=== PATIENT | male | born 1975 | race African-American/Black ===

== ENCOUNTER 2019-04-11 12:47 | Inpatient (IN) | payer MEDICARE ==
[~2019-04-11] VITALS: Ht 175.3 cm; Wt 43.7 kg
[2019-04-11] VITALS (13 sets, daily range): BP systolic 84–116; BP diastolic 62–84
[2019-04-11 14:15] LABS: BASOPHILS % 0.1 % (0.0-1.0); EOSINOPHILS # (AUTO) 0.1 (0.0-0.4); EOSINOPHILS % 0.5 % (0.0-6.0); HEMOGLOBIN 7.2 g/dL (14.0-18.0); LYMPHOCYTES # (AUTO) 1.1 (1.0-3.2); LYMPHOCYTES % 5.3 % (18.0-39.1); MEAN CORPUSCULAR HEMOGLOBIN 28.6 pg (28-32); MEAN CORPUSCULAR VOLUME 95.2 fL (81-99); MONOCYTES # (AUTO) 1.8 (0.2-0.8); MONOCYTES % 8.9 % (4.4-11.3); NEUTROPHILS # (AUTO) 17.1 (2.1-6.9); NEUTROPHILS % 84.3 % (38.7-80.0); PLATELET COUNT 423 x10e3/uL (140-360); RED BLOOD COUNT 2.52 x10e6/uL (4.3-5.7); RED CELL DISTRIBUTION WIDTH 14.1 % (11.7-14.4)
--- NOTE | 2019-04-11 14:24 | Consultation ---
DATE OF CONSULTATION: 04/11/2019 Pulmonary Consult[address] Patient of Dr. Joshua Narayan. HISTORY OF PRESENT ILLNESS: Unfortunate 43-year-old gentleman, transferred from [facility] because of leak around his endotracheal tube, somewhat tachypneic and tachycardic, rate in the 40s, heart rate 120s, apparent cuff leak. Cuff manometer was not available, but cuff pressure seems somewhat high to palpation. PHYSICAL EXAMINATION: GENERAL: Somewhat cachectic, wasted white male. According to record, has a history of cerebellar ataxia, although he is ventilator dependent. Old records currently unavailable. VITAL SIGNS: Temperature 98.8, pulse 118, respirations 40, blood pressure 123/81. Tracheostomy in place. PEG tube. LUNGS: Diminished breath sounds. HEART: Regular rhythm. ABDOMEN: Scaphoid. EXTREMITIES: Wasted. IMPRESSION: Neuromuscular disease with ventilator dependence, leak around the patient's inflated tracheostomy, suspect overinflation. A #6 Shiley XLT with distal cuff was placed. The patient seemed to ventilate better, respiratory rate reduced, blood pressure improved. PLAN: Plan is to admit the patient, observe him, obtain chest x-ray, lab and cultures. Review old records when available. Thank you for this kind referral. Cxr revealed rml pneumonia will culture and begin iv antibiotics Rocco Adams MD DS/MODL /[id number] MTDD
[2019-04-11 14:25] LABS: INR 1.11; PROTHROMBIN TIME 14.8 seconds (11.9-14.5)
[2019-04-11 14:26] LABS: PARTIAL THROMBOPLASTIN TIME 50.4 seconds (23.8-35.5)
[2019-04-11] MEDS ORDERED: SODIUM CHLORIDE 0.9% 250ML 250 ML IV ONE (14:30)
[2019-04-11] MEDS ORDERED: FUROSEMIDE INJ 10 MG/ML 2 ML VIAL IV PRN (14:30)
[2019-04-11 14:32] LABS: ALANINE AMINOTRANSFERASE 18 IU/L (0-55); ALBUMIN 2.4 g/dL (3.5-5.0); ALBUMIN/GLOBULIN RATIO 0.4 (0.8-2.0); ALKALINE PHOSPHATASE 93 IU/L (40-150); ANION GAP 15.7 mmol/L (8-16); BLOOD UREA NITROGEN 13 mg/dL (7-26); BUN/CREATININE RATIO 25 (6-25); CALCIUM 10.2 mg/dL (8.4-10.2); CARBON DIOXIDE 34 mmol/L (22-29); CHLORIDE 97 mmol/L (98-107); CREATINE KINASE 25 IU/L (30-200); CREATININE, SERUM 0.53 mg/dL (0.72-1.25); EST GLOMERULAR FILTRATION RATE > 60 ML/MIN (60-); GLUCOSE 87 mg/dL (74-118); POTASSIUM 4.7 mmol/L (3.5-5.1); SODIUM 142 mmol/L (136-145)
--- NOTE | 2019-04-11 14:52 | Diagnostic Imaging Report ---
EXAMINATION: CHEST SINGLE (PORTABLE) INDICATION: ^TRACHEOSTOMY W/ CUFF LEAK ^[id number] ^[id number] COMPARISON: None FINDINGS: AP view TUBES and LINES: Tracheostomy tube in place with tip approximately 6.5 cm above missy. LUNGS: Lungs are well inflated. Right mid to lower lung opacification. Left lung is clear. PLEURA: No visible pneumothorax. HEART AND MEDIASTINUM: The cardiomediastinal silhouette is unremarkable. BONES AND SOFT TISSUES: No acute osseous lesion. Soft tissues are unremarkable. UPPER ABDOMEN: No free air under the diaphragm. IMPRESSION: Right mid to lower lung field hazy opacification, representing pneumonia/aspiration. Less likely to represent layering effusion. Signed by: Dr. Talha Garcia MD on 04/11/2019 2:49 PM
[2019-04-11] MEDS: CEFEPIME 2 GM/NS 0.9% 100 ML 100 ML IV SCH (14:57)
[2019-04-11] MEDS ORDERED: ALBUTEROL SULF 0.083% NEB SOLN 3 ML NEB NEB SCH (15:00)
[2019-04-11] MEDS ORDERED: SODIUM CHLORIDE 0.9% 1000ML 1,000 ML IV ONE (15:00)
--- OUTSIDE RECORDS SUMMARY | 2019-04-11 15:10 | XMS REPORT ---
Author Author [facility] Organization [facility] Address Unknown Phone Unavailable Care Team Providers Care Granite Cutter Name Role Phone Essence LIANG Unavailable Unavailable Payers Payer Name Policy Type Policy Number Effective Date Expiration Date Problems This patient has no known problems. Allergies, Adverse Reactions, Alerts Allergy Name Allergy Type Status Severity Reaction(s) Onset Date Inactive Date Treating Clinician Comments No Known Allergies DA Active U 2018-09-19 00:00:00 Medications This patient has no known medications. Results Test Description Test Time Test Comments Text Results Atomic Results Result Comments CHEST SINGLE (PORTABLE) 2019-04-11 14:47:00 [facility] [address] [place], [place] [address] Patient Name: NICHOLAS VARGAS III MR #: [id number] : 1975 Age/Sex: 43/M Req #: [id number] Adm Physician: Ordered by: BERHANE LIANG MD Report #: [id number] Location: ER Room/Bed: Procedure: [id number] DX/CHEST SINGLE (PORTABLE) Exam Date: 04/11/19 Exam Time: 1405 REPORT STATUS: Signed EXAMINATION: CHEST SINGLE (PORTABLE) INDICAT ION: TRACHEOSTOMY W/ CUFF LEAK [id number] COMPARISON: None FINDINGS: AP view TUBES and LINES: Tracheostomy tube in place with tip approximately 6.5 cm above missy. LUNGS: Lungs are well inflated. Right mid to lower lung opacification. Left lung is clear. PLEURA: No visible pneumothorax. HEART AND MEDIASTINUM: The cardiomediastinal silhouette is unremarkable. BONES AND SOFT TISSUES: No acute osseous lesion. Soft tissues are unremarkable. UPPER ABDOMEN: No free air under the diaphragm. IMPRESSION: Right mid to lower lung field hazy opacification, representing pneumonia/aspiration. Less likely to represent layering effusion. Signed by: Dr. Mesha Garcia MD on 04/11/2019 2:49 PM Dictated By: MESHA GARCIA MD 1449 Transcribed By: CLAUDIA on 04/11/19 1449 COPY TO: BERHANE LIANG MD - XR ABDOMEN 1V (KU) 2018-12-03 09:32:00 FAX: Ap Velez [phone] [place]: St: [facility] FAX: Franko Nieto MD [phone] FAX: Omega Pradhan MD [phone] Name: ALICIANICHOLASKali ORELLANA [facility] : 1975 Age/S: 43/M [address] [place] [address] Unit #: [id number] Loc: G.M328 [place] [address] Phys: Omega Moya MD Acct: [id number] Dis Date: Status: ADM IN PHONE #: [phone] Exam Date: 12/03/2018 09 FAX #: [phone] Reason: nausea, vomiting, possible impaction? EXAMS: CPT CODE: [id number] XR ABDOMEN 1V (KUB) [id number] ABDOMEN SINGLE VIEW HISTORY: Nausea and vomiting. COMPARISON: 11/29/18 FINDINGS: There is diffuse gaseous distention of small bowel loops and colon. Gastrostomy tube noted. No rectal fecal impaction.. There is no gross free intraperitoneal air. No abnormal calcifications identified. The lung bases are clear. IMPRESSION: 1. Diffuse gaseous distention of bowel with air suggesting ileus. 2. No colonic fecal impaction given history. 3. Gastrostomy tube noted. SL:01 at 0932 Reported and signed by: Lucien Diamond M.D. CC: Ap Allison MD; Franko Guido MD; Omega Moya MD Technologist: RT Victorino(Jonathan) Trnscrd Date/Time/By: 12/03/2018 (0932) : By: Ryland Orig Print D/T: S: 12/03/2018 (3341) PAGE 1 Signed Report PROCALCITONIN (PCT) 2018-12-03 09:18:00 PROCALCITONIN (PCT) (test code=PROCAL) 0.05 ng/mL 0.00-0.05 PROCALCITONIN (PCT) NORMAL RANGE (ADULT): <0.05 NG/ML. * a concentration <0.5 ng/mL represents a low risk of severe sepsis and/or septic shock.* a concentration >2 ng/mL represents a high risk of severe sepsis and/or septic shock.Nevertheless, concentrations <0.5 ng/mL do not exclude aninfection, on account of localized infections (withoutsystemic signs) which can be associated with such lowconcentrations, or a systemic infection in its initialstages (< 6 hours). Furthermore, increased procalcitonincan occur without infection. PCT concentrations between 0.5and 2.0 ng/mL should be interpreted taking into account thepatient's history. It is recommended to retest PCT within6-24 hours if any concentrations <2 ng/mL are obtained. BASIC METABOLIC [id number] 06:40:00* Test Item Value Reference Range Comments SODIUM (test code=NA) 140 mEq/L 134-147 POTASSIUM (test code=K) 3.7 mEq/L 3.4-5.0 CHLORIDE (test code=CL) 109 mEq/L 100-108 CARBON DIOXIDE (test code=CO2) 25 mEq/L 21-33 ANION GAP (test code=GAP) 10 0-20 GLUCOSE (test code=GLU) 95 mg/dL 70-110 BLOOD UREA NITROGEN (test code=BUN) 9 mg/dL 7-18 GLOMERULAR FILTRATION RATE (test code=GFR) 629.3 95-105 Units of measure=ml/min/1.73 m2 CREATININE (test code=CREAT) 0.2 mg/dL 0.6-1.3 CALCIUM (test code=CA) 8.2 mg/dL 8.0-10.5 COMMENTS: Daily while in [id number] 06:40:00* Test Item Value Reference Range Comments PHOSPHOROUS (test code=PHOS) 2.2 mg/dL 2.5-4.9 COMMENTS: Daily while in [id number] 06:40:00* Test Item Value Reference Range Comments MAGNESIUM (test code=MAG) 2.30 mg/dL 1.8-2.4 COMMENTS: Daily while in ICUCBC W/AUTO [id number] 06:28:00* Test Item Value Reference Range Comments WHITE BLOOD CELL (test code=WBC) 22.52 x10 3/uL 4.5-11.0 RED BLOOD CELL (test code=RBC) 2.87 x10 6/uL 4.00-5.60 HEMOGLOBIN (test code=HGB) 8.6 g/dL 12.5-16.9 HEMATOCRIT (test code=HCT) 27.8 % 37.5-50.7 MEAN CELL VOLUME (test code=MCV) 96.9 fL 81.0-99.0 MEAN CELL HGB (test code=MCH) 30.0 pg 27.0-33.0 MEAN CELL HGB CONCETRATION (test code=MCHC) 30.9 g/dL 33.0-37.0 RED CELL DISTRIBUTION WIDTH CV (test code=RDW) 15.1 % 11.5-14.5 RED CELL DISTRIBUTION WIDTH SD (test code=RDW-SD) 52.1 fL 37.0-54.0 PLATELET COUNT (test code=PLT) 307 x10 3/uL 150-400 MEAN PLATELET VOLUME (test code=MPV) 9.1 fL 7.0-9.0 NEUTROPHIL % (test code=NT%) 85.2 % 56.0-77.0 IMMATURE GRANULOCYTE % (test code=IG%) 0.8 % 0.0-2.0 LYMPHOCYTE % (test code=LY%) 8.4 % 14.0-32.0 MONOCYTE % (test code=MO%) 5.4 % 4.8-9.0 EOSINOPHIL % (test code=EO%) 0.1 % 0.3-3.7 BASOPHIL % (test code=BA%) 0.1 % 0.0-2.0 NUCLEATED RBC % (test code=NRBC%) 0.0 % 0-0 NEUTROPHIL # (test code=NT#) 19.17 x10 3/uL 2.0-7.6 IMMATURE GRANULOCYTE # (test code=IG#) 0.18 x10 3/uL 0.00-0.03 LYMPHOCYTE # (test code=LY#) 1.90 x10 3/uL 1.0-3.8 MONOCYTE # (test code=MO#) 1.22 x10 3/uL 0.1-0.8 EOSINOPHIL # (test code=EO#) 0.03 x10 3/uL 0.0-0.2 BASOPHIL # (test code=BA#) 0.02 x10 3/uL 0.0-0.2 NUCLEATED RBC # (test code=NRBC#) 0.00 x10 3/uL 0.0-0.1 MANUAL DIFF REQUIRED (test code=MDIFF) NO COMMENTS: Daily while in ICUARTERIAL BLOOD [id number] 04:42:00* Test Item Value Reference Range Comments ARTERIAL BLOOD GAS PH (test code=PHA) 7.461 7.35-7.45 ARTERIAL BLOOD GAS PCO2 (test code=PCO2A) 32.2 mmHg 35-45 ARTERIAL BLOOD GAS PO2 (test code=PO2A) 141 mmHg 80-100 BICARBONATE TOTAL HCO3 (test code=HCO3) 23.0 mmol/L 22.0-26.0 BASE EXCESS (test code=REYNA) -1.0 mmol/L -4-4 ABG O2 SATURATION (test code=SATA) 99 % 90-100 FIO2 (test code=FIO2A) 30 % ABG DELIVERY (test code=MAGNOLIA) Vent ABG VENT MODE (test code=MODEA) AC v con ABG VENT RESP RATE (test code=RRA) 14 /MIN ABG TIDAL VOLUME (test code=TVA) 450 ml ABG PEEP (test code=PEEPA) 5 cmH2O Performed by certified marshmallow machine operator at [facility] ABG TEMPERATURE (test code=TEMPA) 98.0 F ABG SITE (test code=SITEA) R Rad PREDICTED AA GRADIENT (test code=AP) 45 PREDICTED PO2 (test code=OP) 130 a/A RATIO (test code=RATIO) 0.80 TCO2 ARTERIAL (test code=TCO2A) 24 A-A GRADIENT (test code=AAGRADE) 34 PROCALCITONIN (PCT)2018-12-02 17:17:00* Test Item Value Reference Range Comments PROCALCITONIN (PCT) (test code=PROCAL) < 0.05 ng/mL 0.00-0.05 PROCALCITONIN (PCT) NORMAL RANGE (ADULT): <0.05 NG/ML. * a concentration <0.5 ng/mL represents a low risk of severe sepsis and/or septic shock.* a concentration >2 ng/mL represents a high risk of severe sepsis and/or septic shock.Nevertheless, concentrations <0.5 ng/mL do not exclude aninfection, on account of localized infections (withoutsystemic signs) which can be associated with such lowconcentrations, or a systemic infection in its initialstages (< 6 hours). Furthermore, increased procalcitonincan occur without infection. PCT concentrations between 0.5and 2.0 ng/mL should be interpreted taking into account thepatient's history. It is recommended to retest PCT within6-24 hours if any concentrations <2 ng/mL are obtained. LACTIC [id number] 15:12:00* Test Item Value Reference Range Comments LACTIC ACID (test code=LACT) 0.9 mmol/L 0.4-1.9 UA CULT [id number] 15:00:00* Test Item Value Reference Range Comments UA WBC (test code=WBCU) 0-3 WBC/HPF 0-3 UA SQUAMOUS CELLS (test code=SQU) NONE SEEN /HPF NONE SEEN UA CULTURE NEEDED? (test code=UACULT) NO, WBC<10 Criteria Culture Chk Criteria not met, Urine Culture cancelled. BASIC METABOLIC [id number] 06:38:00* Test Item Value Reference Range Comments SODIUM (test code=NA) 139 mEq/L 134-147 POTASSIUM (test code=K) 3.8 mEq/L 3.4-5.0 CHLORIDE (test code=CL) 112 mEq/L 100-108 CARBON DIOXIDE (test code=CO2) 22 mEq/L 21-33 ANION GAP (test code=GAP) 9 0-20 GLUCOSE (test code=GLU) 119 mg/dL 70-110 BLOOD UREA NITROGEN (test code=BUN) 8 mg/dL 7-18 GLOMERULAR FILTRATION RATE (test code=GFR) 629.3 95-105 Units of measure=ml/min/1.73 m2 CREATININE (test code=CREAT) 0.2 mg/dL 0.6-1.3 CALCIUM (test code=CA) 7.6 mg/dL 8.0-10.5 COMMENTS: Daily while in [id number] 06:38:00* Test Item Value Reference Range Comments PHOSPHOROUS (test code=PHOS) 1.5 mg/dL 2.5-4.9 COMMENTS: Daily while in [id number] 06:38:00* Test Item Value Reference Range Comments MAGNESIUM (test code=MAG) 2.40 mg/dL 1.8-2.4 COMMENTS: Daily while in ICUCBC W/AUTO [id number] 06:30:00* Test Item Value Reference Range Comments WHITE BLOOD CELL (test code=WBC) 21.56 x10 3/uL 4.5-11.0 RED BLOOD CELL (test code=RBC) 2.72 x10 6/uL 4.00-5.60 HEMOGLOBIN (test code=HGB) 8.2 g/dL 12.5-16.9 HEMATOCRIT (test code=HCT) 26.9 % 37.5-50.7 MEAN CELL VOLUME (test code=MCV) 98.9 fL 81.0-99.0 MEAN CELL HGB (test code=MCH) 30.1 pg 27.0-33.0 MEAN CELL HGB CONCETRATION (test code=MCHC) 30.5 g/dL 33.0-37.0 RED CELL DISTRIBUTION WIDTH CV (test code=RDW) 15.0 % 11.5-14.5 RED CELL DISTRIBUTION WIDTH SD (test code=RDW-SD) 53.9 fL 37.0-54.0 PLATELET COUNT (test code=PLT) 293 x10 3/uL 150-400 MEAN PLATELET VOLUME (test code=MPV) 9.0 fL 7.0-9.0 NEUTROPHIL % (test code=NT%) 85.1 % 56.0-77.0 IMMATURE GRANULOCYTE % (test code=IG%) 1.6 % 0.0-2.0 LYMPHOCYTE % (test code=LY%) 8.2 % 14.0-32.0 MONOCYTE % (test code=MO%) 4.9 % 4.8-9.0 EOSINOPHIL % (test code=EO%) 0.1 % 0.3-3.7 BASOPHIL % (test code=BA%) 0.1 % 0.0-2.0 NUCLEATED RBC % (test code=NRBC%) 0.0 % 0-0 NEUTROPHIL # (test code=NT#) 18.34 x10 3/uL 2.0-7.6 IMMATURE GRANULOCYTE # (test code=IG#) 0.35 x10 3/uL 0.00-0.03 LYMPHOCYTE # (test code=LY#) 1.77 x10 3/uL 1.0-3.8 MONOCYTE # (test code=MO#) 1.06 x10 3/uL 0.1-0.8 EOSINOPHIL # (test code=EO#) 0.02 x10 3/uL 0.0-0.2 BASOPHIL # (test code=BA#) 0.02 x10 3/uL 0.0-0.2 NUCLEATED RBC # (test code=NRBC#) 0.00 x10 3/uL 0.0-0.1 MANUAL DIFF REQUIRED (test code=MDIFF) NO COMMENTS: Daily while in ICUARTERIAL BLOOD [id number] 06:20:00* Test Item Value Reference Range Comments ARTERIAL BLOOD GAS PH (test code=PHA) 7.418 7.35-7.45 ARTERIAL BLOOD GAS PCO2 (test code=PCO2A) 28.8 mmHg 35-45 ARTERIAL BLOOD GAS PO2 (test code=PO2A) 137 mmHg 80-100 BICARBONATE TOTAL HCO3 (test code=HCO3) 18.6 mmol/L 22.0-26.0 BASE EXCESS (test code=REYNA) -6.0 mmol/L -4-4 ABG O2 SATURATION (test code=SATA) 99 % 90-100 FIO2 (test code=FIO2A) 30 % ABG DELIVERY (test code=MAGNOLIA) Vent ABG VENT MODE (test code=MODEA) AC v con ABG VENT RESP RATE (test code=RRA) 14 /MIN ABG TIDAL VOLUME (test code=TVA) 450 ml ABG PEEP (test code=PEEPA) 5 cmH2O Performed by certified marshmallow machine operator at [facility] ABG TEMPERATURE (test code=TEMPA) 97.9 F ABG SITE (test code=SITEA) R Rad PREDICTED AA GRADIENT (test code=AP) 46 PREDICTED PO2 (test code=OP) 133 a/A RATIO (test code=RATIO) 0.76 TCO2 ARTERIAL (test code=TCO2A) 20 A-A GRADIENT (test code=AAGRADE) 42 [id number] 18:20:00* Test Item Value Reference Range Comments POTASSIUM (test code=K) 3.2 mEq/L 3.4-5.0 PROCALCITONIN (PCT)2018-12-01 10:42:00* Test Item Value Reference Range Comments PROCALCITONIN (PCT) (test code=PROCAL) 0.05 ng/mL 0.00-0.05 PROCALCITONIN (PCT) NORMAL RANGE (ADULT): <0.05 NG/ML. * a concentration <0.5 ng/mL represents a low risk of severe sepsis and/or septic shock.* a concentration >2 ng/mL represents a high risk of severe sepsis and/or septic shock.Nevertheless, concentrations <0.5 ng/mL do not exclude aninfection, on account of localized infections (withoutsystemic signs) which can be associated with such lowconcentrations, or a systemic infection in its initialstages (< 6 hours). Furthermore, increased procalcitonincan occur without infection. PCT concentrations between 0.5and 2.0 ng/mL should be interpreted taking into account thepatient's history. It is recommended to retest PCT within6-24 hours if any concentrations <2 ng/mL are obtained. BASIC METABOLIC [id number] 07:52:00* Test Item Value Reference Range Comments SODIUM (test code=NA) 144 mEq/L 134-147 POTASSIUM (test code=K) 2.9 mEq/L 3.4-5.0 CHLORIDE (test code=CL) 120 mEq/L 100-108 CARBON DIOXIDE (test code=CO2) 21 mEq/L 21-33 ANION GAP (test code=GAP) 6 0-20 GLUCOSE (test code=GLU) 205 mg/dL 70-110 BLOOD UREA NITROGEN (test code=BUN) 6 mg/dL 7-18 GLOMERULAR FILTRATION RATE (test code=GFR) 394.1 95-105 Units of measure=ml/min/1.73 m2 CREATININE (test code=CREAT) 0.3 mg/dL 0.6-1.3 CALCIUM (test code=CA) 7.0 mg/dL 8.0-10.5 COMMENTS: Daily while in [id number] 07:52:00* Test Item Value Reference Range Comments PHOSPHOROUS (test code=PHOS) 1.2 mg/dL 2.5-4.9 COMMENTS: Daily while in [id number] 07:52:00* Test Item Value Reference Range Comments MAGNESIUM (test code=MAG) 1.60 mg/dL 1.8-2.4 COMMENTS: Daily while in ICUCBC W/AUTO [id number] 07:37:00* Test Item Value Reference Range Comments WHITE BLOOD CELL (test code=WBC) 17.00 x10 3/uL 4.5-11.0 RED BLOOD CELL (test code=RBC) 2.37 x10 6/uL 4.00-5.60 HEMOGLOBIN (test code=HGB) 7.0 g/dL 12.5-16.9 HEMATOCRIT (test code=HCT) 24.0 % 37.5-50.7 MEAN CELL VOLUME (test code=MCV) 101.3 fL 81.0-99.0 MEAN CELL HGB (test code=MCH) 29.5 pg 27.0-33.0 MEAN CELL HGB CONCETRATION (test code=MCHC) 29.2 g/dL 33.0-37.0 RED CELL DISTRIBUTION WIDTH CV (test code=RDW) 15.4 % 11.5-14.5 RED CELL DISTRIBUTION WIDTH SD (test code=RDW-SD) 55.7 fL 37.0-54.0 PLATELET COUNT (test code=PLT) 248 x10 3/uL 150-400 MEAN PLATELET VOLUME (test code=MPV) 9.3 fL 7.0-9.0 NEUTROPHIL % (test code=NT%) 78.0 % 56.0-77.0 IMMATURE GRANULOCYTE % (test code=IG%) 3.0 % 0.0-2.0 LYMPHOCYTE % (test code=LY%) 13.3 % 14.0-32.0 MONOCYTE % (test code=MO%) 5.4 % 4.8-9.0 EOSINOPHIL % (test code=EO%) 0.2 % 0.3-3.7 BASOPHIL % (test code=BA%) 0.1 % 0.0-2.0 NUCLEATED RBC % (test code=NRBC%) 0.0 % 0-0 NEUTROPHIL # (test code=NT#) 13.27 x10 3/uL 2.0-7.6 IMMATURE GRANULOCYTE # (test code=IG#) 0.51 x10 3/uL 0.00-0.03 LYMPHOCYTE # (test code=LY#) 2.26 x10 3/uL 1.0-3.8 MONOCYTE # (test code=MO#) 0.91 x10 3/uL 0.1-0.8 EOSINOPHIL # (test code=EO#) 0.03 x10 3/uL 0.0-0.2 BASOPHIL # (test code=BA#) 0.02 x10 3/uL 0.0-0.2 NUCLEATED RBC # (test code=NRBC#) 0.00 x10 3/uL 0.0-0.1 MANUAL DIFF REQUIRED (test code=MDIFF) NO COMMENTS: Daily while in ICUARTERIAL BLOOD [id number] 04:39:00* Test Item Value Reference Range Comments ARTERIAL BLOOD GAS PH (test code=PHA) 7.469 7.35-7.45 ARTERIAL BLOOD GAS PCO2 (test code=PCO2A) 27.1 mmHg 35-45 ARTERIAL BLOOD GAS PO2 (test code=PO2A) 177 mmHg 80-100 BICARBONATE TOTAL HCO3 (test code=HCO3) 19.7 mmol/L 22.0-26.0 BASE EXCESS (test code=REYNA) -4.0 mmol/L -4-4 ABG O2 SATURATION (test code=SATA) 100 % 90-100 FIO2 (test code=FIO2A) 30 % ABG DELIVERY (test code=MAGNOLIA) Vent ABG VENT MODE (test code=MODEA) AC v con ABG VENT RESP RATE (test code=RRA) 14 /MIN ABG TIDAL VOLUME (test code=TVA) 450 ml ABG PEEP (test code=PEEPA) 5 cmH2O Performed by certified marshmallow machine operator at [facility] ABG TEMPERATURE (test code=TEMPA) 98.6 F ABG SITE (test code=SITEA) R Rad PREDICTED AA GRADIENT (test code=AP) 47 PREDICTED PO2 (test code=OP) 134 a/A RATIO (test code=RATIO) 0.98 TCO2 ARTERIAL (test code=TCO2A) 21 A-A GRADIENT (test code=AAGRADE) 4 CBC W/AUTO [id number] 11:42:00* Test Item Value Reference Range Comments WHITE BLOOD CELL (test code=WBC) 22.54 x10 3/uL 4.5-11.0 RED BLOOD CELL (test code=RBC) 2.96 x10 6/uL 4.00-5.60 HEMOGLOBIN (test code=HGB) 8.9 g/dL 12.5-16.9 HEMATOCRIT (test code=HCT) 28.1 % 37.5-50.7 MEAN CELL VOLUME (test code=MCV) 94.9 fL 81.0-99.0 MEAN CELL HGB (test code=MCH) 30.1 pg 27.0-33.0 MEAN CELL HGB CONCETRATION (test code=MCHC) 31.7 g/dL 33.0-37.0 RED CELL DISTRIBUTION WIDTH CV (test code=RDW) 15.1 % 11.5-14.5 RED CELL DISTRIBUTION WIDTH SD (test code=RDW-SD) 51.5 fL 37.0-54.0 PLATELET COUNT (test code=PLT) 273 x10 3/uL 150-400 MEAN PLATELET VOLUME (test code=MPV) 9.1 fL 7.0-9.0 NEUTROPHIL % (test code=NT%) 82.6 % 56.0-77.0 IMMATURE GRANULOCYTE % (test code=IG%) 4.4 % 0.0-2.0 LYMPHOCYTE % (test code=LY%) 8.3 % 14.0-32.0 MONOCYTE % (test code=MO%) 4.5 % 4.8-9.0 EOSINOPHIL % (test code=EO%) 0.0 % 0.3-3.7 BASOPHIL % (test code=BA%) 0.2 % 0.0-2.0 NUCLEATED RBC % (test code=NRBC%) 0.0 % 0-0 NEUTROPHIL # (test code=NT#) 18.62 x10 3/uL 2.0-7.6 IMMATURE GRANULOCYTE # (test code=IG#) 1.00 x10 3/uL 0.00-0.03 LYMPHOCYTE # (test code=LY#) 1.86 x10 3/uL 1.0-3.8 MONOCYTE # (test code=MO#) 1.01 x10 3/uL 0.1-0.8 EOSINOPHIL # (test code=EO#) 0.01 x10 3/uL 0.0-0.2 BASOPHIL # (test code=BA#) 0.04 x10 3/uL 0.0-0.2 NUCLEATED RBC # (test code=NRBC#) 0.00 x10 3/uL 0.0-0.1 MANUAL DIFF REQUIRED (test code=MDIFF) NO SLIDE REVIEWED, CONSISTENT WITH AUTO DIFF. PROCALCITONIN (PCT)2018-11-30 09:22:00* Test Item Value Reference Range Comments PROCALCITONIN (PCT) (test code=PROCAL) 0.13 ng/mL 0.00-0.05 PROCALCITONIN (PCT) NORMAL RANGE (ADULT): <0.05 NG/ML. * a concentration <0.5 ng/mL represents a low risk of severe sepsis and/or septic shock.* a concentration >2 ng/mL represents a high risk of severe sepsis and/or septic shock.Nevertheless, concentrations <0.5 ng/mL do not exclude aninfection, on account of localized infections (withoutsystemic signs) which can be associated with such lowconcentrations, or a systemic infection in its initialstages (< 6 hours). Furthermore, increased procalcitonincan occur without infection. PCT concentrations between 0.5and 2.0 ng/mL should be interpreted taking into account thepatient's history. It is recommended to retest PCT within6-24 hours if any concentrations <2 ng/mL are obtained. - XR CHEST 1 [id number] 08:13:00 FAX: Ap Velez [phone] [place]: St: ADM FAX: Franko Nieto MD [phone] FAX: Iwona Fox MD Name: NICHOLAS VARGAS III [facility] : 1975 Age/S: 43/M [address] [place] [address] Unit #: [id number] Loc: G.M328 [place] [address] Phys: Iwona Fox MD Acct: [id number] Dis Date: Status: ADM IN ONE #: [phone] Exam Date: 11/30/2018 0536 FAX #: [phone] Reason: trach to vent EXAMS: CPT CODE: [id number] XR CHEST 1 V [id number] EXAM: CHEST SI NGLE VIEW HISTORY: 43-year-old male with tracheostomy COMPARISON: Chest radiograph 11/29/2018 FINDINGS: Stable pleural- based mass in the left mid hemithorax. Stable medial right lower lung [place]. Stable trace residual left apical pneumothorax. The cardiomediasti nal silhouette is stable. Osseous structures are unchanged. Stable posit ion of tracheostomy tube, right upper extremity PICC, and left-sided chest tube. IMPRESSION: 1. Grossly stable chest. SL: [id number] at 0813 Reported and sign ed by: Mario Lopez M.D. CC: Ap Allison MD; Franko Guido MD; Iwona Fox MD Technologist: Brittney Clark, RT(R); Cyrus Mack RT(R) [facility] Date/Time/By: 11/30/2018 (0813) : By: [email or web address] Orig Print D/T: S: 11/30/2018 (0824) PAGE 1 Signed Report BASIC METABOLIC [id number] 05:55:00* Test Item Value Reference Range Comments SODIUM (test code=NA) 141 mEq/L 134-147 POTASSIUM (test code=K) 3.1 mEq/L 3.4-5.0 CHLORIDE (test code=CL) 110 mEq/L 100-108 CARBON DIOXIDE (test code=CO2) 25 mEq/L 21-33 ANION GAP (test code=GAP) 9 0-20 GLUCOSE (test code=GLU) 104 mg/dL 70-110 BLOOD UREA NITROGEN (test code=BUN) 12 mg/dL 7-18 GLOMERULAR FILTRATION RATE (test code=GFR) 629.3 95-105 Units of measure=ml/min/1.73 m2 CREATININE (test code=CREAT) 0.2 mg/dL 0.6-1.3 CALCIUM (test code=CA) 8.2 mg/dL 8.0-10.5 [id number] 05:55:00* Test Item Value Reference Range Comments PHOSPHOROUS (test code=PHOS) 2.5 mg/dL 2.5-4.9 [id number] 05:55:00* Test Item Value Reference Range Comments MAGNESIUM (test code=MAG) 1.90 mg/dL 1.8-2.4 ARTERIAL BLOOD [id number] 05:22:00* Test Item Value Reference Range Comments ARTERIAL BLOOD GAS PH (test code=PHA) 7.485 7.35-7.45 ARTERIAL BLOOD GAS PCO2 (test code=PCO2A) 29.6 mmHg 35-45 ARTERIAL BLOOD GAS PO2 (test code=PO2A) 136 mmHg 80-100 BICARBONATE TOTAL HCO3 (test code=HCO3) 22.4 mmol/L 22.0-26.0 BASE EXCESS (test code=REYNA) -1.0 mmol/L -4-4 ABG O2 SATURATION (test code=SATA) 99 % 90-100 FIO2 (test code=FIO2A) 30 % ABG DELIVERY (test code=MAGNOLIA) Vent ABG VENT MODE (test code=MODEA) AC v con ABG VENT RESP RATE (test code=RRA) 14 /MIN ABG TIDAL VOLUME (test code=TVA) 450 ml ABG PEEP (test code=PEEPA) 5 cmH2O Performed by certified marshmallow machine operator at [facility] ABG TEMPERATURE (test code=TEMPA) 98.0 F ABG SITE (test code=SITEA) R Rad PREDICTED AA GRADIENT (test code=AP) 46 PREDICTED PO2 (test code=OP) 132 a/A RATIO (test code=RATIO) 0.76 TCO2 ARTERIAL (test code=TCO2A) 23 A-A GRADIENT (test code=AAGRADE) 42 CBC W/AUTO [id number] 05:15:00* Test Item Value Reference Range Comments WHITE BLOOD CELL (test code=WBC) 22.54 x10 3/uL 4.5-11.0 RED BLOOD CELL (test code=RBC) 2.96 x10 6/uL 4.00-5.60 HEMOGLOBIN (test code=HGB) 8.9 g/dL 12.5-16.9 HEMATOCRIT (test code=HCT) 28.1 % 37.5-50.7 MEAN CELL VOLUME (test code=MCV) 94.9 fL 81.0-99.0 MEAN CELL HGB (test code=MCH) 30.1 pg 27.0-33.0 MEAN CELL HGB CONCETRATION (test code=MCHC) 31.7 g/dL 33.0-37.0 RED CELL DISTRIBUTION WIDTH CV (test code=RDW) 15.1 % 11.5-14.5 RED CELL DISTRIBUTION WIDTH SD (test code=RDW-SD) 51.5 fL 37.0-54.0 PLATELET COUNT (test code=PLT) 273 x10 3/uL 150-400 MEAN PLATELET VOLUME (test code=MPV) 9.1 fL 7.0-9.0 LYMPHOCYTE % (test code=LY%) % 14.0-32.0 MANUAL DIFF REQUIRED (test code=MDIFF) PROCALCITONIN (PCT)2018-11-29 20:58:00* Test Item Value Reference Range Comments PROCALCITONIN (PCT) (test code=PROCAL) 0.19 ng/mL 0.00-0.05 PROCALCITONIN (PCT) NORMAL RANGE (ADULT): <0.05 NG/ML. * a concentration <0.5 ng/mL represents a low risk of severe sepsis and/or septic shock.* a concentration >2 ng/mL represents a high risk of severe sepsis and/or septic shock.Nevertheless, concentrations <0.5 ng/mL do not exclude aninfection, on account of localized infections (withoutsystemic signs) which can be associated with such lowconcentrations, or a systemic infection in its initialstages (< 6 hours). Furthermore, increased procalcitonincan occur without infection. PCT concentrations between 0.5and 2.0 ng/mL should be interpreted taking into account thepatient's history. It is recommended to retest PCT within6-24 hours if any concentrations <2 ng/mL are obtained. URINALYSIS [id number] 17:56:00* Test Item Value Reference Range Comments UA COLOR (test code=COLU) YELLOW YEL/STRAW UA APPEARANCE (test code=APPU) CLOUDY CLEAR UA GLUCOSE DIPSTICK (test code=DGLUU) NEGATIVE NEGATIVE UA BILIRUBIN DIPSTICK (test code=BILU) NEGATIVE NEGATIVE UA KETONE DIPSTICK (test code=KETU) NEGATIVE NEGATIVE UA SPECIFIC GRAVITY (test code=SGU) 1.024 1.005-1.030 UA BLOOD DIPSTICK (test code=ALEX) 3+ NEGATIVE UA PH DIPSTICK (test code=JORJE) 7.0 5.0-7.0 UA PROTEIN DIPSTICK (test code=PROU) NEGATIVE NEGATIVE UA UROBILINIOGEN DIPSTICK (test code=URO) 2.0 mg/dL 0.2-1.0 UA NITRITE DIPSTICK (test code=MALINI) NEGATIVE NEGATIVE UA LEUKOCYTE ESTERASE DIPSTICK (test code=LEUU) NEGATIVE NEGATIVE UA WBC (test code=WBCU) 21-50 WBC/HPF 0-3 UA RBC (test code=RBCU) >50 RBC/HPF 0-3 UA BACTERIA (test code=BACU) TRACE /HPF NONE SEEN UA SQUAMOUS CELLS (test code=SQU) NONE SEEN /HPF NONE SEEN UA CALCIUM OXALATE CRYSTALS (test code=CAOXU) 1+ /HPF NONE SEEN UA CULT [id number] 17:56:00* Test Item Value Reference Range Comments UA CULTURE NEEDED? (test code=UACULT) YES,WBC>10 & EPI<=25 Criteria Culture Chk Criteria met, Urine Culture in-process. - XR ABDOMEN 1V ([facility])2018-11-29 16:23:00 FAX: Ap Velez [phone] [place]: St: ADM FAX: Franko Nieto MD [phone] FAX: Iwona Fox MD Name: NICHOLAS VARGAS III [facility] : 1975 Age/S: 43/M [address] [place] [address] Unit #: [id number] Loc: G.M328 [place] [address] Phys: Iwona Fox MD Acct: [id number] Dis Date: Status: ADM IN ONE #: [phone] Exam Date: 11/29/2018 1611 FAX #: [phone] Reason: persistent vomiting, s/p PEG x 1 day EXAMS: CPT CODE: [id number] XR ABDOMEN 1V ([facility]) [id number] Clinical Indic ation: persistent vomiting, s/p PEG x 1 day; Comparison: October 04, 2018 FINDINGS: The AP supine view of the abdome n shows a non-obstructive bowel gas pattern. There is no abnormal dilatati on of bowel loops. There is no pneumatosis or mass effect. The stomach is mildly dilated and filled with gas. A PEG tube projects over the stomach with the tip likely terminating in the body the stomach. There are no cl inically significant osseous abnormalities noted. IMPRESS ION: Unremarkable 1 view abdomen. SL: [id number] at 1 413 Reported and signed by: Arnold Houser M.D. CC: Ap Allison MD; Franko Guido MD; Iwona Fox MD Technologist: Yasmine Avendano RT(R) Trnscrd Date/Time/By: 11/29/2018 (0967) : By: [email or web address] Orig Print D/T: S: 11/29/2018 (6463) PAGE 1 Signed Report [id number] 15:37:00* Test Item Value Reference Range Comments MAGNESIUM (test code=MAG) 2.10 mg/dL 1.8-2.4 PROCALCITONIN (PCT)2018-11-29 15:19:00* Test Item Value Reference Range Comments PROCALCITONIN (PCT) (test code=PROCAL) 0.21 ng/mL 0.00-0.05 PROCALCITONIN (PCT) NORMAL RANGE (ADULT): <0.05 NG/ML. * a concentration <0.5 ng/mL represents a low risk of severe sepsis and/or septic shock.* a concentration >2 ng/mL represents a high risk of severe sepsis and/or septic shock.Nevertheless, concentrations <0.5 ng/mL do not exclude aninfection, on account of localized infections (withoutsystemic signs) which can be associated with such lowconcentrations, or a systemic infection in its initialstages (< 6 hours). Furthermore, increased procalcitonincan occur without infection. PCT concentrations between 0.5and 2.0 ng/mL should be interpreted taking into account thepatient's history. It is recommended to retest PCT within6-24 hours if any concentrations <2 ng/mL are obtained. CBC W/AUTO [id number] 09:56:00* Test Item Value Reference Range Comments WHITE BLOOD CELL (test code=WBC) 26.16 x10 3/uL 4.5-11.0 RED BLOOD CELL (test code=RBC) 3.20 x10 6/uL 4.00-5.60 HEMOGLOBIN (test code=HGB) 9.7 g/dL 12.5-16.9 HEMATOCRIT (test code=HCT) 30.4 % 37.5-50.7 MEAN CELL VOLUME (test code=MCV) 93.0 fL 81.0-99.0 MEAN CELL HGB (test code=MCH) 29.7 pg 27.0-33.0 MEAN CELL HGB CONCETRATION (test code=MCHC) 31.9 g/dL 33.0-37.0 RED CELL DISTRIBUTION WIDTH CV (test code=RDW) 15.3 % 11.5-14.5 RED CELL DISTRIBUTION WIDTH SD (test code=RDW-SD) 51.3 fL 37.0-54.0 PLATELET COUNT (test code=PLT) 309 x10 3/uL 150-400 MEAN PLATELET VOLUME (test code=MPV) 9.5 fL 7.0-9.0 NEUTROPHIL % (test code=NT%) 81.8 % 56.0-77.0 IMMATURE GRANULOCYTE % (test code=IG%) 5.4 % 0.0-2.0 LYMPHOCYTE % (test code=LY%) 9.1 % 14.0-32.0 MONOCYTE % (test code=MO%) 3.4 % 4.8-9.0 EOSINOPHIL % (test code=EO%) 0.0 % 0.3-3.7 BASOPHIL % (test code=BA%) 0.3 % 0.0-2.0 NUCLEATED RBC % (test code=NRBC%) 0.0 % 0-0 NEUTROPHIL # (test code=NT#) 21.42 x10 3/uL 2.0-7.6 IMMATURE GRANULOCYTE # (test code=IG#) 1.40 x10 3/uL 0.00-0.03 LYMPHOCYTE # (test code=LY#) 2.37 x10 3/uL 1.0-3.8 MONOCYTE # (test code=MO#) 0.90 x10 3/uL 0.1-0.8 EOSINOPHIL # (test code=EO#) 0.00 x10 3/uL 0.0-0.2 BASOPHIL # (test code=BA#) 0.07 x10 3/uL 0.0-0.2 NUCLEATED RBC # (test code=NRBC#) 0.00 x10 3/uL 0.0-0.1 MANUAL DIFF REQUIRED (test code=MDIFF) NO SLIDE REVIEWED, CONSISTENT WITH AUTO DIFF. COMMENTS: Daily while in ICU- XR CHEST 1 [id number] 09:33:00 FAX: Ap Vleez [phone] [place]: St: ADM FAX: Franko Nieto MD [phone] FAX: Iwona Fox MD --------- Name: NICHOLAS VARGAS III [facility] [place] : 1975 Age/S: 43/M [address] [place] [address] Un it #: [id number] Loc: AshaM328 [place] [address] Phys: Iwona Fox MD Acct: [id number] Dis Date: Status: ADM IN PH ONE #: [phone] Exam Date: 11/29/2018 0552 FAX #: [phone] Reason: intubated/vented EXAMS: CPT CODE: [id number] XR CHEST 1 V [id number] EXAM: CHEST SI NGLE VIEW HISTORY: 43-year-old male, intubated. COMP ARISON: Chest radiograph 11/28/2018 FINDINGS: Mild infiltrate in th e medial right lung base, slightly improved. Stable pleural-based mass in the left mid hemithorax. Trace residual left pneumothorax. The cardiome diastinal silhouette is stable. Osseous structures are unchanged. Stable position of tracheostomy tube, right upper extremity PICC, and left-sided chest tube. Interval removal of nasogastric tube. IMPRESSION: 1. Trace residual left pneumothorax. 2. Slight improvement in medial right basilar infiltrate. 3. Interval removal of nasogastric tube. Otherwise stable position of lines and tubes. SL: [id number] at 0933 Reported and signed by: Mario Lopez M.D. CC: Ap Allison MD; Franko Guido MD; Iwona Fox MD Technologist: Brittney Clark, RT(R); Cyrus Mack RT(R) Trnscrd Date/Time/By: 11/29/2018 (33) : By: [email or web address] Orig Print D/T: S: 11/29/2018 (7380) PAGE 1 Signed Report ARTERIAL BLOOD [id number] 09:07:00* Test Item Value Reference Range Comments ARTERIAL BLOOD GAS PH (test code=PHA) 7.501 7.35-7.45 ARTERIAL BLOOD GAS PCO2 (test code=PCO2A) 32.3 mmHg 35-45 ARTERIAL BLOOD GAS PO2 (test code=PO2A) 50 mmHg 80-100 BICARBONATE TOTAL HCO3 (test code=HCO3) 25.4 mmol/L 22.0-26.0 BASE EXCESS (test code=REYNA) 2.0 mmol/L -4-4 ABG O2 SATURATION (test code=SATA) 89 % 90-100 FIO2 (test code=FIO2A) 35 % ABG DELIVERY (test code=MAGNOLIA) Vent ABG VENT MODE (test code=MODEA) AC v con ABG VENT RESP RATE (test code=RRA) 14 /MIN ABG TIDAL VOLUME (test code=TVA) 450 ml ABG PEEP (test code=PEEPA) 5 cmH2O Performed by certified marshmallow machine operator at [facility] ABG TEMPERATURE (test code=TEMPA) 98.0 F ABG SITE (test code=SITEA) R Rad PREDICTED AA GRADIENT (test code=AP) 54 PREDICTED PO2 (test code=OP) 156 a/A RATIO (test code=RATIO) 0.24 TCO2 ARTERIAL (test code=TCO2A) 26 A-A GRADIENT (test code=AAGRADE) 161 BASIC METABOLIC [id number] 06:58:00* Test Item Value Reference Range Comments SODIUM (test code=NA) 142 mEq/L 134-147 POTASSIUM (test code=K) 2.9 mEq/L 3.4-5.0 CHLORIDE (test code=CL) 107 mEq/L 100-108 CARBON DIOXIDE (test code=CO2) 28 mEq/L 21-33 ANION GAP (test code=GAP) 10 0-20 GLUCOSE (test code=GLU) 93 mg/dL 70-110 BLOOD UREA NITROGEN (test code=BUN) 13 mg/dL 7-18 GLOMERULAR FILTRATION RATE (test code=GFR) 394.1 95-105 Units of measure=ml/min/1.73 m2 CREATININE (test code=CREAT) 0.3 mg/dL 0.6-1.3 CALCIUM (test code=CA) 9.6 mg/dL 8.0-10.5 COMMENTS: Daily while in ICUHEPATIC FUNCTION [id number] 06:58:00* Test Item Value Reference Range Comments TOTAL PROTEIN (test code=PROT) 7.2 g/dL 6.4-8.2 ALBUMIN (test code=ALB) 4.00 g/dL 3.4-5.0 BILIRUBIN TOTAL (test code=BILT) 1.00 mg/dL 0.0-1.0 BILIRUBIN DIRECT (test code=BILD) 0.30 MG/DL 0.0-0.30 BILIRUBIN INDIRECT (test code=BILIND) 0.70 MG/DL SGOT/AST (test code=AST) 12 IUnit/L 15-37 SGPT/ALT (test code=ALT) 34 IUnit/L 15-65 ALKALINE PHOSPHATASE TOTAL (test code=ALKP) 43 IUnit/L 20-125 COMMENTS: Daily while in [id number] 06:58:00* Test Item Value Reference Range Comments PREALBUMIN (test code=PREALB) 30.2 mg/dL 16.0-40.0 COMMENTS: Daily while in ICUVITAMIN D [id number] 06:58:00* Test Item Value Reference Range Comments VITAMIN D 25-HYDROXY (test code=VITD25) 15.4 ng/mL 30-100 COMMENTS: Daily while in ICUBASIC METABOLIC [id number] 06:37:00* Test Item Value Reference Range Comments SODIUM (test code=NA) mEq/L 134-147 POTASSIUM (test code=K) mEq/L 3.4-5.0 CHLORIDE (test code=CL) mEq/L 100-108 CARBON DIOXIDE (test code=CO2) mEq/L 21-33 ANION GAP (test code=GAP) 0-20 GLUCOSE (test code=GLU) mg/dL 70-110 BLOOD UREA NITROGEN (test code=BUN) mg/dL 7-18 GLOMERULAR FILTRATION RATE (test code=GFR) 95-105 CREATININE (test code=CREAT) mg/dL 0.6-1.3 CALCIUM (test code=CA) mg/dL 8.0-10.5 COMMENTS: Daily while in ICUHEPATIC FUNCTION [id number] 06:37:00* Test Item Value Reference Range Comments TOTAL PROTEIN (test code=PROT) g/dL 6.4-8.2 ALBUMIN (test code=ALB) g/dL 3.4-5.0 BILIRUBIN TOTAL (test code=BILT) mg/dL 0.0-1.0 BILIRUBIN DIRECT (test code=BILD) MG/DL 0.0-0.30 SGOT/AST (test code=AST) IUnit/L 15-37 SGPT/ALT (test code=ALT) IUnit/L 15-65 ALKALINE PHOSPHATASE TOTAL (test code=ALKP) IUnit/L 20-125 COMMENTS: Daily while in [id number] 06:37:00* Test Item Value Reference Range Comments PREALBUMIN (test code=PREALB) mg/dL 16.0-40.0 COMMENTS: Daily while in ICUVITAMIN D [id number] 06:37:00* Test Item Value Reference Range Comments VITAMIN D 25-HYDROXY (test code=VITD25) 15.4 ng/mL 30-100 COMMENTS: Daily while in ICUCBC W/AUTO [id number] 06:13:00* Test Item Value Reference Range Comments WHITE BLOOD CELL (test code=WBC) 26.16 x10 3/uL 4.5-11.0 RED BLOOD CELL (test code=RBC) 3.20 x10 6/uL 4.00-5.60 HEMOGLOBIN (test code=HGB) 9.7 g/dL 12.5-16.9 HEMATOCRIT (test code=HCT) 30.4 % 37.5-50.7 MEAN CELL VOLUME (test code=MCV) 93.0 fL 81.0-99.0 MEAN CELL HGB (test code=MCH) 29.7 pg 27.0-33.0 MEAN CELL HGB CONCETRATION (test code=MCHC) 31.9 g/dL 33.0-37.0 RED CELL DISTRIBUTION WIDTH CV (test code=RDW) 15.3 % 11.5-14.5 RED CELL DISTRIBUTION WIDTH SD (test code=RDW-SD) 51.3 fL 37.0-54.0 PLATELET COUNT (test code=PLT) 309 x10 3/uL 150-400 MEAN PLATELET VOLUME (test code=MPV) 9.5 fL 7.0-9.0 LYMPHOCYTE % (test code=LY%) % 14.0-32.0 MANUAL DIFF REQUIRED (test code=MDIFF) COMMENTS: Daily while in ICUARTERIAL BLOOD [id number] 13:40:00* Test Item Value Reference Range Comments ARTERIAL BLOOD GAS PH (test code=PHA) 7.405 7.35-7.45 ARTERIAL BLOOD GAS PCO2 (test code=PCO2A) 45.2 mmHg 35-45 ARTERIAL BLOOD GAS PO2 (test code=PO2A) 184 mmHg 80-100 BICARBONATE TOTAL HCO3 (test code=HCO3) 28.3 mmol/L 22.0-26.0 BASE EXCESS (test code=REYNA) 4.0 mmol/L -4-4 ABG O2 SATURATION (test code=SATA) 100 % 90-100 FIO2 (test code=FIO2A) 40 % ABG DELIVERY (test code=MAGNOLIA) Vent ABG VENT MODE (test code=MODEA) Other ABG PEEP (test code=PEEPA) 5 cmH2O ABG PRESSURE SUPPORT (test code=PSABG) 10 cmH2O Performed by certified marshmallow machine operator at [facility] ABG TEMPERATURE (test code=TEMPA) 99.0 F ABG SITE (test code=SITEA) R Rad PREDICTED AA GRADIENT (test code=AP) 60 PREDICTED PO2 (test code=OP) 171 a/A RATIO (test code=RATIO) 0.80 TCO2 ARTERIAL (test code=TCO2A) 30 A-A GRADIENT (test code=AAGRADE) 47 CBC W/AUTO [id number] 11:02:00* Test Item Value Reference Range Comments WHITE BLOOD CELL (test code=WBC) 15.99 x10 3/uL 4.5-11.0 RED BLOOD CELL (test code=RBC) 2.94 x10 6/uL 4.00-5.60 HEMOGLOBIN (test code=HGB) 8.7 g/dL 12.5-16.9 HEMATOCRIT (test code=HCT) 27.7 % 37.5-50.7 MEAN CELL VOLUME (test code=MCV) 94.2 fL 81.0-99.0 MEAN CELL HGB (test code=MCH) 29.6 pg 27.0-33.0 MEAN CELL HGB CONCETRATION (test code=MCHC) 31.4 g/dL 33.0-37.0 RED CELL DISTRIBUTION WIDTH CV (test code=RDW) 15.6 % 11.5-14.5 RED CELL DISTRIBUTION WIDTH SD (test code=RDW-SD) 53.9 fL 37.0-54.0 PLATELET COUNT (test code=PLT) 286 x10 3/uL 150-400 MEAN PLATELET VOLUME (test code=MPV) 9.4 fL 7.0-9.0 NEUTROPHIL % (test code=NT%) 75.6 % 56.0-77.0 IMMATURE GRANULOCYTE % (test code=IG%) 6.0 % 0.0-2.0 LYMPHOCYTE % (test code=LY%) 11.6 % 14.0-32.0 MONOCYTE % (test code=MO%) 6.5 % 4.8-9.0 EOSINOPHIL % (test code=EO%) 0.0 % 0.3-3.7 BASOPHIL % (test code=BA%) 0.3 % 0.0-2.0 NUCLEATED RBC % (test code=NRBC%) 0.1 % 0-0 NEUTROPHIL # (test code=NT#) 12.09 x10 3/uL 2.0-7.6 IMMATURE GRANULOCYTE # (test code=IG#) 0.96 x10 3/uL 0.00-0.03 LYMPHOCYTE # (test code=LY#) 1.86 x10 3/uL 1.0-3.8 MONOCYTE # (test code=MO#) 1.04 x10 3/uL 0.1-0.8 EOSINOPHIL # (test code=EO#) 0.00 x10 3/uL 0.0-0.2 BASOPHIL # (test code=BA#) 0.04 x10 3/uL 0.0-0.2 NUCLEATED RBC # (test code=NRBC#) 0.02 x10 3/uL 0.0-0.1 MANUAL DIFF REQUIRED (test code=MDIFF) NO SLIDE REVIEWED, CONSISTENT WITH AUTO DIFF. COMMENTS: Daily while in ICUBASIC METABOLIC [id number] 07:25:00* Test Item Value Reference Range Comments SODIUM (test code=NA) 140 mEq/L 134-147 POTASSIUM (test code=K) 3.4 mEq/L 3.4-5.0 CHLORIDE (test code=CL) 105 mEq/L 100-108 CARBON DIOXIDE (test code=CO2) 30 mEq/L 21-33 ANION GAP (test code=GAP) 8 0-20 GLUCOSE (test code=GLU) 107 mg/dL 70-110 BLOOD UREA NITROGEN (test code=BUN) 12 mg/dL 7-18 GLOMERULAR FILTRATION RATE (test code=GFR) 394.1 95-105 Units of measure=ml/min/1.73 m2 CREATININE (test code=CREAT) 0.3 mg/dL 0.6-1.3 CALCIUM (test code=CA) 8.7 mg/dL 8.0-10.5 COMMENTS: Daily while in ICUHEPATIC FUNCTION [id number] 07:25:00* Test Item Value Reference Range Comments TOTAL PROTEIN (test code=PROT) 6.4 g/dL 6.4-8.2 ALBUMIN (test code=ALB) 3.90 g/dL 3.4-5.0 BILIRUBIN TOTAL (test code=BILT) 0.80 mg/dL 0.0-1.0 BILIRUBIN DIRECT (test code=BILD) 0.30 MG/DL 0.0-0.30 BILIRUBIN INDIRECT (test code=BILIND) 0.50 MG/DL SGOT/AST (test code=AST) 10 IUnit/L 15-37 SGPT/ALT (test code=ALT) 29 IUnit/L 15-65 ALKALINE PHOSPHATASE TOTAL (test code=ALKP) 33 IUnit/L 20-125 COMMENTS: Daily while in [id number] 07:25:00* Test Item Value Reference Range Comments PHOSPHOROUS (test code=PHOS) 2.4 mg/dL 2.5-4.9 COMMENTS: Daily while in [id number] 07:25:00* Test Item Value Reference Range Comments MAGNESIUM (test code=MAG) 2.10 mg/dL 1.8-2.4 COMMENTS: Daily while in ICUCALCIUM [id number] 07:25:00* Test Item Value Reference Range Comments CALCIUM IONIZED (test code=LATONYA) 1.27 MMOL/L 1.12-1.32 COMMENTS: Daily while in ICUBASIC METABOLIC [id number] 07:23:00* Test Item Value Reference Range Comments SODIUM (test code=NA) 140 mEq/L 134-147 POTASSIUM (test code=K) 3.4 mEq/L 3.4-5.0 CHLORIDE (test code=CL) 105 mEq/L 100-108 CARBON DIOXIDE (test code=CO2) 30 mEq/L 21-33 ANION GAP (test code=GAP) 8 0-20 GLUCOSE (test code=GLU) 107 mg/dL 70-110 BLOOD UREA NITROGEN (test code=BUN) 12 mg/dL 7-18 GLOMERULAR FILTRATION RATE (test code=GFR) 394.1 95-105 Units of measure=ml/min/1.73 m2 CREATININE (test code=CREAT) 0.3 mg/dL 0.6-1.3 CALCIUM (test code=CA) 8.7 mg/dL 8.0-10.5 COMMENTS: Daily while in ICUHEPATIC FUNCTION [id number] 07:23:00* Test Item Value Reference Range Comments TOTAL PROTEIN (test code=PROT) 6.4 g/dL 6.4-8.2 ALBUMIN (test code=ALB) 3.90 g/dL 3.4-5.0 BILIRUBIN TOTAL (test code=BILT) 0.80 mg/dL 0.0-1.0 BILIRUBIN DIRECT (test code=BILD) 0.30 MG/DL 0.0-0.30 BILIRUBIN INDIRECT (test code=BILIND) 0.50 MG/DL SGOT/AST (test code=AST) 10 IUnit/L 15-37 SGPT/ALT (test code=ALT) 29 IUnit/L 15-65 ALKALINE PHOSPHATASE TOTAL (test code=ALKP) 33 IUnit/L 20-125 COMMENTS: Daily while in [id number] 07:23:00* Test Item Value Reference Range Comments PHOSPHOROUS (test code=PHOS) 2.4 mg/dL 2.5-4.9 COMMENTS: Daily while in [id number] 07:23:00* Test Item Value Reference Range Comments MAGNESIUM (test code=MAG) 2.10 mg/dL 1.8-2.4 COMMENTS: Daily while in ICUCALCIUM [id number] 07:23:00* Test Item Value Reference Range Comments CALCIUM IONIZED (test code=LATONYA) MMOL/L 1.12-1.32 COMMENTS: Daily while in ICUPROTHROMBIN [id number] 06:52:00* Test Item Value Reference Range Comments PROTHROMBIN TIME PATIENT (test code=PTP) 13.8 SECONDS 9.3-12.9 INTERNATIONAL NORMAL RATIO (test code=INR) 1.2 0.8-1.2 TARGET INR BY INDICATION Indication INR1. Prophylaxis of venous thrombosis 2.0 - 3.0 (orthopedic surgery), Prophylaxis of venous thrombosis (other than high-risk surgery), Treatment of Deep Vein Thrombosis/Pulmonary Embolism, Prevention of systemic embolism - Tissue heart valves, Acute Myocardial Infarction (to prevent systemic embolism), Valvular heart disease, Atrial Fibrillation, Bileaflet mechanical valve in aortic position.2. Mechanical prosthetic valves (high risk), 2.5 - 3.5 Presence of Lupus Anticoagulant or Antiphospholipid Antibodies, Prevention of systemic embolism - Acute Myocardial Infarction (to prevent recurrent infarct). CBC W/AUTO [id number] 06:36:00* Test Item Value Reference Range Comments WHITE BLOOD CELL (test code=WBC) 15.99 x10 3/uL 4.5-11.0 RED BLOOD CELL (test code=RBC) 2.94 x10 6/uL 4.00-5.60 HEMOGLOBIN (test code=HGB) 8.7 g/dL 12.5-16.9 HEMATOCRIT (test code=HCT) 27.7 % 37.5-50.7 MEAN CELL VOLUME (test code=MCV) 94.2 fL 81.0-99.0 MEAN CELL HGB (test code=MCH) 29.6 pg 27.0-33.0 MEAN CELL HGB CONCETRATION (test code=MCHC) 31.4 g/dL 33.0-37.0 RED CELL DISTRIBUTION WIDTH CV (test code=RDW) 15.6 % 11.5-14.5 RED CELL DISTRIBUTION WIDTH SD (test code=RDW-SD) 53.9 fL 37.0-54.0 PLATELET COUNT (test code=PLT) 286 x10 3/uL 150-400 MEAN PLATELET VOLUME (test code=MPV) 9.4 fL 7.0-9.0 LYMPHOCYTE % (test code=LY%) % 14.0-32.0 MANUAL DIFF REQUIRED (test code=MDIFF) COMMENTS: Daily while in ICU- XR CHEST 1 [id number] 06:24:00 FAX: Ap Velez [phone] [place]: St: ADM FAX: Franko Nieto MD [phone] FAX: Torres Phelps MD [phone] --------- Name: NICHOLAS VARGAS III [facility] [place] : 1975 Age/S: 43/M [address] [place] [address] Un it #: [id number] Loc: AshaM328 [place] [address] Phys: Torres Rubio MD Acct: [id number] Dis Date: Status: ADM IN ONE #: [phone] Exam Date: 11/28/2018 0535 FAX #: [phone] Reason: Left pneumothorax EXAMS: CPT CODE: [id number] XR CHEST 1 V 45888 Chest, single view dated 11/28/2018. HISTORY: Left pneumothorax. Co mparison is made to a prior study dated 11/27/2018. The positioning of the tracheostomy tube, right upper extremity PICC line, left-sided diana st tube and nasogastric tube has not significantly changed in the interim. A small left apical pneumothorax persists however has decreased in size when compared to the preceding exam. The cardiomediastinal shadow is stab le. The consolidation in the medial right lung base is unchanged. The pl eural-based mass in the left mid hemithorax is stable. The pulmonary vasc ulature is normal in caliber. No pleural fluid collections are noted. IMPRESSION: 1. Stable positioning of the life-support appa ratus. 2. A small left apical pneumothorax persists however has decreas ed in size since 11/27/2018. 3. Stable consolidation in the medi al right lung base. SL: 131 Electronically S igned by Thalia Bernardo on 11/28/2018 at 0624 Reported and signed by: Cyril Bernardo M.D. CC: Ap Allison MD; Franko Guido MD; Sckali Rubio MD Technologist: Brittney Clark, RT(R); Cyrus Mack RT(R) Trnscrd Date/Time/By: 11/28/2018 (0624) : By: Foster Orig Print D/T : S: 11/28/2018 (3916) PAGE 1 Sig dinah Report ARTERIAL BLOOD [id number] 05:55:00* Test Item Value Reference Range Comments ARTERIAL BLOOD GAS PH (test code=PHA) 7.502 7.35-7.45 ARTERIAL BLOOD GAS PCO2 (test code=PCO2A) 33.7 mmHg 35-45 ARTERIAL BLOOD GAS PO2 (test code=PO2A) 143 mmHg 80-100 BICARBONATE TOTAL HCO3 (test code=HCO3) 26.5 mmol/L 22.0-26.0 BASE EXCESS (test code=REYNA) 3.0 mmol/L -4-4 ABG O2 SATURATION (test code=SATA) 99 % 90-100 FIO2 (test code=FIO2A) 40 % ABG DELIVERY (test code=MAGNOLIA) Vent ABG VENT MODE (test code=MODEA) AC v con ABG VENT RESP RATE (test code=RRA) 14 /MIN ABG TIDAL VOLUME (test code=TVA) 450 ml ABG PEEP (test code=PEEPA) 5 cmH2O Performed by certified marshmallow machine operator [facility] ABG TEMPERATURE (test code=TEMPA) 97.6 F ABG SITE (test code=SITEA) L Rad PREDICTED AA GRADIENT (test code=AP) 63 PREDICTED PO2 (test code=OP) 181 a/A RATIO (test code=RATIO) 0.58 TCO2 ARTERIAL (test code=TCO2A) 28 A-A GRADIENT (test code=AAGRADE) 102 HGB [id number] 20:59:00* Test Item Value Reference Range Comments HEMOGLOBIN (test code=HGB) 8.7 g/dL 12.5-16.9 HEMATOCRIT (test code=HCT) 28.2 % 37.5-50.7 [id number] 20:46:00* Test Item Value Reference Range Comments GLUBED (test code=GLUBED) 122 MG/DL 70-110 Performed by certified marshmallow machine operator at [facility] - [facility]ST 1 [id number] 13:50:00 FAX: Ap Velez [phone] [place]: St: ADM FAX: Franko Nieto MD [phone] FAX: Iwona Fox MD Name: NICHOLAS VARGAS III [facility] [place] : 1975 Age/S: 43/M [address] [place] [address] Unit #: [id number] Loc: GM328 [place] [address] Phys: Iwona Fox MD Acct: [id number] Dis Date: Status: ADM IN ONE #: [phone] Exam Date: 11/27/2018 1334 FAX #: [phone] Reason: right apical pneumothorax, now with tracheostom EXAMS: CPT CODE: [id number] XR CHEST 1 V [id number] CLINICAL HISTO RY: Right apical pneumothorax. Now with tracheostomy. Portable fi lm of the chest performed at 1319 on November 27, 2018. Portable f ilm of the chest performed at 1319 on November 27, 2018 demonstrates a tra cheostomy tube with its tip 6.2 cm above the level of missy. Chest tube is present in left hemithorax. Right subclavian catheter tip is in superi or vena cava. An enteric tube is noted. Heart size is leticia l. Pulmonary opacity at the right lung base is unchanged since previous e xamination. Pleural-based density in the left lateral hemithorax is also unchanged. Previously noted left apical pneumothorax is not well seen on current examination partly due to technique. There is no significant inte rval increase in the size of pneumothorax. IMPRESSION: 1. Tracheostomy tube in place. 2. Remainder of the lines and tubes are stable. 3. Stable right basilar pulmonary opacity as well as pleu ral-based opacity in the left midlung field. 4. Pneumothorax on the left not well appreciated on current examination. Elect ronically Signed by Thalia Huntley on 11/27/2018 at 1350 Reported and signed by: Alexandro Huntley M.D. CC: Ap rizo MD; Franko Guido MD; Iwona Fox MD Technologist: Michelle Morales RT(R)(Autumn) Trnscrd Date/Time/By: 11/27/2018 (6127) : By: Dean Orig Print D/T: S: 11/27/2018 (1624) PAGE 1 Signed Report CBC W/AUTO DIFF 2018-11-27 11:09:00* Test Item Value Reference Range Comments WHITE BLOOD CELL (test code=WBC) 12.87 x10 3/uL 4.5-11.0 RED BLOOD CELL (test code=RBC) 2.25 x10 6/uL 4.00-5.60 HEMOGLOBIN (test code=HGB) 6.8 g/dL 12.5-16.9 HEMATOCRIT (test code=HCT) 22.3 % 37.5-50.7 MEAN CELL VOLUME (test code=MCV) 99.1 fL 81.0-99.0 MEAN CELL HGB (test code=MCH) 30.2 pg 27.0-33.0 MEAN CELL HGB CONCETRATION (test code=MCHC) 30.5 g/dL 33.0-37.0 RED CELL DISTRIBUTION WIDTH CV (test code=RDW) 13.9 % 11.5-14.5 RED CELL DISTRIBUTION WIDTH SD (test code=RDW-SD) 50.1 fL 37.0-54.0 PLATELET COUNT (test code=PLT) 305 x10 3/uL 150-400 MEAN PLATELET VOLUME (test code=MPV) 9.7 fL 7.0-9.0 NEUTROPHIL % (test code=NT%) 77.1 % 56.0-77.0 IMMATURE GRANULOCYTE % (test code=IG%) 5.4 % 0.0-2.0 LYMPHOCYTE % (test code=LY%) 9.1 % 14.0-32.0 MONOCYTE % (test code=MO%) 8.3 % 4.8-9.0 EOSINOPHIL % (test code=EO%) 0.0 % 0.3-3.7 BASOPHIL % (test code=BA%) 0.1 % 0.0-2.0 NUCLEATED RBC % (test code=NRBC%) 0.0 % 0-0 NEUTROPHIL # (test code=NT#) 9.93 x10 3/uL 2.0-7.6 IMMATURE GRANULOCYTE # (test code=IG#) 0.69 x10 3/uL 0.00-0.03 LYMPHOCYTE # (test code=LY#) 1.17 x10 3/uL 1.0-3.8 MONOCYTE # (test code=MO#) 1.07 x10 3/uL 0.1-0.8 EOSINOPHIL # (test code=EO#) 0.00 x10 3/uL 0.0-0.2 BASOPHIL # (test code=BA#) 0.01 x10 3/uL 0.0-0.2 NUCLEATED RBC # (test code=NRBC#) 0.00 x10 3/uL 0.0-0.1 MANUAL DIFF REQUIRED (test code=MDIFF) NO SLIDE REVIEWED, CONSISTENT WITH AUTO DIFF. COMMENTS: Daily while in ICUPROCALCITONIN (PCT)2018-11-27 10:02:00* Test Item Value Reference Range Comments PROCALCITONIN (PCT) (test code=PROCAL) 0.58 ng/mL 0.00-0.05 PROCALCITONIN (PCT) NORMAL RANGE (ADULT): <0.05 NG/ML. * a concentration <0.5 ng/mL represents a low risk of severe sepsis and/or septic shock.* a concentration >2 ng/mL represents a high risk of severe sepsis and/or septic shock.Nevertheless, concentrations <0.5 ng/mL do not exclude aninfection, on account of localized infections (withoutsystemic signs) which can be associated with such lowconcentrations, or a systemic infection in its initialstages (< 6 hours). Furthermore, increased procalcitonincan occur without infection. PCT concentrations between 0.5and 2.0 ng/mL should be interpreted taking into account thepatient's history. It is recommended to retest PCT within6-24 hours if any concentrations <2 ng/mL are obtained. - XR CHEST 1 [id number] 06:41:00 FAX: Ap Velez [phone] [place]: St: [facility] FAX: Franko Nieto MD [phone] FAX: Iwona Fox MD Name: NICHOLAS VARGAS III [facility] [place] : 1975 Age/S: 43/M [address] [place] [address] Unit #: [id number] Loc: [address] [place] [address] Phys: Iwona Fox MD Acct: [id number] Dis Date: Status: ADM IN ONE #: [phone] Exam Date: 11/27/2018524 FAX #: [phone] Reason: intubated/vented EXAMS: CPT CODE: [id number] XR CHEST 1 V 48553 Chest, single view dated 11/27/2018. HISTORY: Pneumothorax. Compari son is made to a prior study dated 11/26/2018. The positioning of t he endotracheal tube, right upper extremity PICC line and left-sided chest tube has not significantly changed in the interim. The left apical pneum othorax appears slightly larger than on the preceding study. A nasogastri c tube courses into the stomach and off the inferior edge of the image. T he cardiomediastinal shadow is stable. The lungs demonstrate evidence of COPD. The infiltrate in the medial right lung base has not significantly changed in the interim. Scarring is again identified in the left lung ape x. The pleural-based mass in the left hemithorax appears stable. IMPRESSION: 1. Slight interval increase in size of the small le ft apical pneumothorax. 2. Stable positioning of the life-suppo rt apparatus. 3. Stable consolidation in the medial right lung base. SL: 131 at 0641 * * Reported and signed by: Cyril Bernardo M.D. CC: Ap Allison MD; Franko Guido MD; Iwona Fox MD Technologist: Brittney Clark, RT(R); Cyrus Mack RT(R) Trnscrd Date/Time/By: 0 11/27/2018 (0641) : By: Foster Orig Print D/T: S: 11/27/2018 (0724) PAGE 1 Signed Report ARTERIAL BLOOD [id number] 05:55:00* Test Item Value Reference Range Comments ARTERIAL BLOOD GAS PH (test code=PHA) 7.458 7.35-7.45 ARTERIAL BLOOD GAS PCO2 (test code=PCO2A) 41.4 mmHg 35-45 ARTERIAL BLOOD GAS PO2 (test code=PO2A) 137 mmHg 80-100 BICARBONATE TOTAL HCO3 (test code=HCO3) 29.3 mmol/L 22.0-26.0 BASE EXCESS (test code=REYNA) 5.0 mmol/L -4-4 ABG O2 SATURATION (test code=SATA) 99 % 90-100 FIO2 (test code=FIO2A) 40 % ABG DELIVERY (test code=MAGNOLIA) Vent ABG VENT MODE (test code=MODEA) AC v con ABG VENT RESP RATE (test code=RRA) 14 /MIN ABG TIDAL VOLUME (test code=TVA) 450 ml ABG PEEP (test code=PEEPA) 5 cmH2O Performed by certified marshmallow machine operator at [facility] ABG TEMPERATURE (test code=TEMPA) 98.0 F ABG SITE (test code=SITEA) L Rad PREDICTED AA GRADIENT (test code=AP) 61 PREDICTED PO2 (test code=OP) 174 a/A RATIO (test code=RATIO) 0.58 TCO2 ARTERIAL (test code=TCO2A) 31 A-A GRADIENT (test code=AAGRADE) 99 CBC W/AUTO [id number] 05:47:00* Test Item Value Reference Range Comments WHITE BLOOD CELL (test code=WBC) 12.87 x10 3/uL 4.5-11.0 RED BLOOD CELL (test code=RBC) 2.25 x10 6/uL 4.00-5.60 HEMOGLOBIN (test code=HGB) 6.8 g/dL 12.5-16.9 HEMATOCRIT (test code=HCT) 22.3 % 37.5-50.7 MEAN CELL VOLUME (test code=MCV) 99.1 fL 81.0-99.0 MEAN CELL HGB (test code=MCH) 30.2 pg 27.0-33.0 MEAN CELL HGB CONCETRATION (test code=MCHC) 30.5 g/dL 33.0-37.0 RED CELL DISTRIBUTION WIDTH CV (test code=RDW) 13.9 % 11.5-14.5 RED CELL DISTRIBUTION WIDTH SD (test code=RDW-SD) 50.1 fL 37.0-54.0 PLATELET COUNT (test code=PLT) 305 x10 3/uL 150-400 MEAN PLATELET VOLUME (test code=MPV) 9.7 fL 7.0-9.0 LYMPHOCYTE % (test code=LY%) % 14.0-32.0 MANUAL DIFF REQUIRED (test code=MDIFF) COMMENTS: Daily while in ICUBASIC METABOLIC [id number] 05:27:00* Test Item Value Reference Range Comments SODIUM (test code=NA) 143 mEq/L 134-147 POTASSIUM (test code=K) 3.4 mEq/L 3.4-5.0 CHLORIDE (test code=CL) 109 mEq/L 100-108 CARBON DIOXIDE (test code=CO2) 31 mEq/L 21-33 ANION GAP (test code=GAP) 6 0-20 GLUCOSE (test code=GLU) 121 mg/dL 70-110 BLOOD UREA NITROGEN (test code=BUN) 11 mg/dL 7-18 GLOMERULAR FILTRATION RATE (test code=GFR) 629.3 95-105 Units of measure=ml/min/1.73 m2 CREATININE (test code=CREAT) 0.2 mg/dL 0.6-1.3 CALCIUM (test code=CA) 8.6 mg/dL 8.0-10.5 COMMENTS: Daily while in ICUHEPATIC FUNCTION [id number] 05:27:00* Test Item Value Reference Range Comments TOTAL PROTEIN (test code=PROT) 6.5 g/dL 6.4-8.2 ALBUMIN (test code=ALB) 3.70 g/dL 3.4-5.0 BILIRUBIN TOTAL (test code=BILT) 0.60 mg/dL 0.0-1.0 BILIRUBIN DIRECT (test code=BILD) 0.20 MG/DL 0.0-0.30 BILIRUBIN INDIRECT (test code=BILIND) 0.40 MG/DL SGOT/AST (test code=AST) 13 IUnit/L 15-37 SGPT/ALT (test code=ALT) 34 IUnit/L 15-65 ALKALINE PHOSPHATASE TOTAL (test code=ALKP) 31 IUnit/L 20-125 COMMENTS: Daily while in ICUAB HIV 1 19:53:00* Test Item Value Reference Range Comments AB HIV 1 2 (test code=OPG43NR) NONREACTIVE INDEX NONREACTIVE - XR CHEST 1 [id number] 18:06:00 FAX: Ap Velez [phone] [place]: St: ADM FAX: Farnko Nieto MD [phone] FAX: Iwona Fox MD Name: NICHOLAS VARGAS III [facility] : 1975 Age/S: 43/M [address] [place] [address] Unit #: [id number] Loc: G[address] [place] [address] Phys: Iwona Fox MD Acct: [id number] Dis Date: Status: ADM IN ONE #: [phone] Exam Date: 11/26/2018 1852 FAX #: [phone] Reason: CT TUBE EVAL EXAMS: CPT CODE: [id number] XR CHEST 1 V 07639 CHEST, ONE VIE W: HISTORY: Chest tube. Intubated. COMPARISON EXA M(S): Chest x-rays dating back to 11/24/2018. FINDINGS: This sing le portable view was obtained at 1748 hours on 11/26/2018 and shows stable position of the left chest tube with tip projected over the apex. No evid ence of left pneumothorax. Pleural-based 4 cm mass is again noted. Pleur al parenchymal scarring and pleural-based opacity at the left apex is stab le. Endotracheal tube tip is in good position above the missy. G astric tube sidehole is projected over the body the stomach. The right ar m PICC tip is projected over the SVC. Subtle infiltrate pers ists in the right lower lung, similar to the examination performed earlier today. IMPRESSION: 1. Stable left chest tube without e vidence of definite pneumothorax. 2. Stable pleural-based mass and pleu ral parenchymal scarring at the left apex. 3. Stable ET tube an d gastric tube. 4. Interval placement of right arm PICC. 5. Pe rsistent right lower lobe infiltrate worrisome for pneumonia. SL:01 at 1806 * * Reported and signed by: Brant Bhakta M.D. CC : Ap Allison MD; Franko Guido MD; Iwona Fox MD Technologist: [place] mossr, RT(R) Trnscrd Date/Time/By: 11/26/2018 (1805) : By: [email or web address] Orig Print D/T: S: 11/26/2018 (711) PAGE 1 Signed Report - CT CHEST W/O [id number] 16:06:00 Name: NICHOLAS VARGAS III [facility] : 1975 Age/S: 43 / M [address] [place] [address] Unit #: [id number] Loc: [place] [address] Phys: Iwona Fox MD Acct: [id number] Dis Date: Status: ADM IN PHONE #: [phone] Exam Date: 11/26/2018 1338 FAX #: [phone] Reason: r/o acute infectious process EXAMS: CPT CODE: [id number] CT CHEST W/O CONTRAST 53507 STUDY: - CT CHEST W/O CONTRAST 11/26/2018 11:12 AM Ordering Physician: Iwona Fox MD Patient Name: NICHOLAS VARGAS III MR: [id number] : 1975; Age: 43 years y/o Male Clinical Indication: r/o acute infectious process Comparison: 11/13/2018 TECHNIQUE: Multiple contiguous transaxial noncontrast CT images were obtained through the chest. Sagittal and coronal reformatted images were prepared. DLP: 109.50 mGy-cm FINDINGS: LUNGS: The lungs are mildly hyperinflated associated with ill-defined patchy groundglass and reticulonodular opacities along a peribronchial vascular distribution greatest dependently in the lower lobe suspicious for pulmonary edema or pneumonia. An indeterminate pleural/parenchymal and somewhat nodular opacities seen medially in the left lung apex. An additional indeterminate pleural-based opacity seen laterally in the left lower lobe estimated at 3.2 x 1.1 x 3.8 cm. A left chest tube is seen extending into the left lung apex associated with small left thorax. Mild subpleural bullous change is seen in the lung apices. No pleural effusion. AIRWAY: The endotracheal tube tip is located 4.7 cm above the missy. Mild retained secretions are seen in the distal trachea extending into both mainstem bronchi. Complete opacification of the bronchus intermedius and several of the right lower lobe bronchi is noted. HEART: Normal size heart. THORACIC AORTA: Normal caliber nonopacified thoracic aorta. PULMONARY ARTERIES: Nonopacified. MEDIASTINUM AND JARRED: Scattered subcentimeter in maximum shortest axis mediastinal lymph nodes without lymphadenopathy or mass. VISUALIZED UPPER ABDOMEN: No significant abnormality. PAGE 1 Signed Report (CONTINUED) Name: NICHOLAS VARGAS III [facility] : 1975 Age/S: 43 / M [address] [place] [address] Unit #: [id number] Loc: [place] [address] Phys: Essence Fox MD Acct: [id number] Di s Date: Status: ADM IN PHONE #: Exam Date: 11/26/2018 3069 FAX #: Reason: r/o acute infectious process EXAMS: CPT CODE: [id number] CT CHEST W/O CONTRAST 41674 <Continued> SOFT TISSUES: No suspicious soft tissue lesion or abnormality. OSSEOUS STRUCTURES: No fracture, dislocation, or suspicious focal osseous lesion. IMPRESSION: Hyperinflated lungs associated with ill-defined patchy groundglass and reticulonodular opacities mainly along a peribronchovascular distribution in the lung bases consistent with pulmonary edema or pneumonia. Small left pneumothorax with chest tube in place. Indete rminate patchy pleural/parenchymal nodular opacities in the left lung ap ex along with another indeterminate pleural-based opacity in the left mi dlung. Clinical correlation and follow-up are required to exclude under lying neoplasm. Retained secretions distally in the trachea ex tending into both mainstem bronchi, greatest in the right lung base. SL: [id number] at 1606 Reported and signed by: Isrrael Holt M.D. CC: Ap Allison MD; Franko Guido MD; Nishi Fox MD Technologist:RT Rj(R)(CT) CTDI: DLP: T rnscb Date/Time: 11/26/2018 (2587) [email or web address] Orig Print D /T: S: 11/26/2018 (7274) CTDI: DLP: PAGE 2 Signed Report - XR SHOULDER 1 V RT 2018-11-26 15:24:00 FAX: Ap Velez [phone] [place]: St: ADM FAX: Franko Nieto MD [phone] FAX: Iwona Fox MD Name: TANISHA VARGASKali ORELLANA [facility] : 1975 Age/S: 43/M [address] [place] [address] Unit #: [id number] Loc: G.M[address] [place] [address] Phys: Iwona Fox MD Acct: [id number] Dis Date: Status: ADM IN ONE #: [phone] Exam Date: 11/26/2018 1520 FAX #: [phone] Reason: PICC PLACEMENT EXAMS: CPT CODE: [id number] XR SHOULD[place] [address] RIGHT SHOULDER ONE VIEW 11/26/2018 AT 1507 HOURS. HISTORY: Line placement. This single portable view shows placement of a PICC with the tip p rojecting over the superior vena cava. No visible complication. The patie nt is intubated and also has a nasogastric tube. IMPRESSION: 1. Status post PICC placement. SL: ER-H at 1524 Reported and signed by: Good Moran M.D. CC: Ap Allison MD; Franko Guido MD; Iwona Fox MD Technologist: RT Maguire (R) Trnscrd Date/Time/By: 11/26/2018 (1524) : By: [email or web address] Orig Print D/T: S: 11/26/2018 (152) PAGE 1 Signed Report PROCALCITONIN (PCT) 2018-11-26 10:50:00* Test Item Value Reference Range Comments PROCALCITONIN (PCT) (test code=PROCAL) 1.31 ng/mL 0.00-0.05 PROCALCITONIN (PCT) NORMAL RANGE (ADULT): <0.05 NG/ML. * a concentration <0.5 ng/mL represents a low risk of severe sepsis and/or septic shock.* a concentration >2 ng/mL represents a high risk of severe sepsis and/or septic shock.Nevertheless, concentrations <0.5 ng/mL do not exclude aninfection, on account of localized infections (withoutsystemic signs) which can be associated with such lowconcentrations, or a systemic infection in its initialstages (< 6 hours). Furthermore, increased procalcitonincan occur without infection. PCT concentrations between 0.5and 2.0 ng/mL should be interpreted taking into account thepatient's history. It is recommended to retest PCT within6-24 hours if any concentrations <2 ng/mL are obtained. CBC W/AUTO [id number] 10:12:00* Test Item Value Reference Range Comments WHITE BLOOD CELL (test code=WBC) 14.76 x10 3/uL 4.5-11.0 RED BLOOD CELL (test code=RBC) 2.40 x10 6/uL 4.00-5.60 HEMOGLOBIN (test code=HGB) 7.3 g/dL 12.5-16.9 HEMATOCRIT (test code=HCT) 23.5 % 37.5-50.7 MEAN CELL VOLUME (test code=MCV) 97.9 fL 81.0-99.0 MEAN CELL HGB (test code=MCH) 30.4 pg 27.0-33.0 MEAN CELL HGB CONCETRATION (test code=MCHC) 31.1 g/dL 33.0-37.0 RED CELL DISTRIBUTION WIDTH CV (test code=RDW) 14.0 % 11.5-14.5 RED CELL DISTRIBUTION WIDTH SD (test code=RDW-SD) 49.8 fL 37.0-54.0 PLATELET COUNT (test code=PLT) 300 x10 3/uL 150-400 MEAN PLATELET VOLUME (test code=MPV) 10.0 fL 7.0-9.0 NEUTROPHIL % (test code=NT%) 82.2 % 56.0-77.0 IMMATURE GRANULOCYTE % (test code=IG%) 4.9 % 0.0-2.0 LYMPHOCYTE % (test code=LY%) 6.5 % 14.0-32.0 MONOCYTE % (test code=MO%) 6.3 % 4.8-9.0 EOSINOPHIL % (test code=EO%) 0.0 % 0.3-3.7 BASOPHIL % (test code=BA%) 0.1 % 0.0-2.0 NUCLEATED RBC % (test code=NRBC%) 0.1 % 0-0 NEUTROPHIL # (test code=NT#) 12.12 x10 3/uL 2.0-7.6 IMMATURE GRANULOCYTE # (test code=IG#) 0.73 x10 3/uL 0.00-0.03 LYMPHOCYTE # (test code=LY#) 0.96 x10 3/uL 1.0-3.8 MONOCYTE # (test code=MO#) 0.93 x10 3/uL 0.1-0.8 EOSINOPHIL # (test code=EO#) 0.00 x10 3/uL 0.0-0.2 BASOPHIL # (test code=BA#) 0.02 x10 3/uL 0.0-0.2 NUCLEATED RBC # (test code=NRBC#) 0.02 x10 3/uL 0.0-0.1 MANUAL DIFF REQUIRED (test code=MDIFF) NO SLIDE REVIEWED, CONSISTENT WITH AUTO DIFF. COMMENTS: Daily while in ICU- XR CHEST 1 [id number] 07:38:00 FAX: Ap Velez [phone] [place]: St: ADM FAX: Franko Nieto MD [phone] FAX: Iwona Fox MD --------- Name: NICHOLAS VARGAS III [facility] [place] : 1975 Age/S: 43/M [address] [place] [address] it #: [id number] Loc: G.M[address] [place] [address] Phys: Iwona Fox MD Acct: [id number] Dis Date: Status: ADM IN ONE #: [phone] Exam Date: 11/26/2018526 FAX #: [phone] Reason: intubated/vented EXAMS: CPT CODE: [id number] XR CHEST 1 V 97341 PROCEDURE: Diana st Radiograph. Clinical Indication: Intubation, pneumothorax. Comparison: Chest radiograph 11/25/2018. FINDINGS: The chest shows emphysematous change bilaterally. There is patchy consolidation developing at the medial right lung base with subsegmental atelectasis in the lower lobes. A left chest tube is in stable position and a tiny left apical pneumothorax cannot be entirely excluded. An endo tracheal tube and NG tube are in stable position. The heart size a nd pulmonary vasculature are normal. The trachea is midline. There are no clinically significant osseous abnormalities noted. IMPRE SSION: 1. Developing consolidation at the left lung base with bibasilar subsegmental atelectasis. 2. Emphysematous change. 3. Left chest tube present with tiny left apical pneumothorax suspected. SL: K56-H at 0738 Reported and signed by: Shai mcdonnell M.D. CC: Ap Allison MD; Franko Guido MD; Iwona Alas Tech nologist: René Lewis; RT Kevin(R) Trnscrd Date/Ti me/By: 11/26/2018 (0738) : By: Mary Orig Print D/T: S: 11/26/2018 (0796) PAGE 1 Signed Report B-TYPE NATRIURETIC [id number] 06:13:00* Test Item Value Reference Range Comments B-TYPE NATRIURETIC PEPTIDE (test code=BNP) 55.9 PG/ML 0-100 Previously reported result: 55.9 PG/MLEdited by: [email or web address] on 11/26/18:0612 B-TYPE NATRIURETIC [id number] 06:12:00* Test Item Value Reference Range Comments B-TYPE NATRIURETIC PEPTIDE (test code=BNP) 55.9 PG/ML 0-100 BASIC METABOLIC [id number] 06:06:00* Test Item Value Reference Range Comments SODIUM (test code=NA) 141 mEq/L 134-147 POTASSIUM (test code=K) 3.4 mEq/L 3.4-5.0 CHLORIDE (test code=CL) 108 mEq/L 100-108 CARBON DIOXIDE (test code=CO2) 30 mEq/L 21-33 ANION GAP (test code=GAP) 6 0-20 GLUCOSE (test code=GLU) 134 mg/dL 70-110 BLOOD UREA NITROGEN (test code=BUN) 13 mg/dL 7-18 GLOMERULAR FILTRATION RATE (test code=GFR) 629.3 95-105 Units of measure=ml/min/1.73 m2 CREATININE (test code=CREAT) 0.2 mg/dL 0.6-1.3 CALCIUM (test code=CA) 8.1 mg/dL 8.0-10.5 COMMENTS: Daily while in ICUHEPATIC FUNCTION [id number] 06:06:00* Test Item Value Reference Range Comments TOTAL PROTEIN (test code=PROT) 5.7 g/dL 6.4-8.2 ALBUMIN (test code=ALB) 2.30 g/dL 3.4-5.0 BILIRUBIN TOTAL (test code=BILT) 0.40 mg/dL 0.0-1.0 BILIRUBIN DIRECT (test code=BILD) 0.20 MG/DL 0.0-0.30 BILIRUBIN INDIRECT (test code=BILIND) 0.20 MG/DL SGOT/AST (test code=AST) 6 IUnit/L 15-37 SGPT/ALT (test code=ALT) 19 IUnit/L 15-65 ALKALINE PHOSPHATASE TOTAL (test code=ALKP) 40 IUnit/L 20-125 COMMENTS: Daily while in [id number] 06:06:00* Test Item Value Reference Range Comments PHOSPHOROUS (test code=PHOS) 3.1 mg/dL 2.5-4.9 COMMENTS: Daily while in [id number] 06:06:00* Test Item Value Reference Range Comments MAGNESIUM (test code=MAG) 2.10 mg/dL 1.8-2.4 COMMENTS: Daily while in [id number] 06:06:00* Test Item Value Reference Range Comments TROPONIN-I (test code=TROPI) < 0.015 ng/mL 0.000-0.045 Negative: <=0.045 Positive: >=0.046 Correlation with serial results, other cardiac markers andclinical findings is necessary to determine the clinicalsignificance of this result. Results using different methodologies should not be comparedto one another as quantitative results may vary by method. COMMENTS: Daily while in ICUPROTHROMBIN [id number] 05:45:00* Test Item Value Reference Range Comments PROTHROMBIN TIME PATIENT (test code=PTP) 13.5 SECONDS 9.3-12.9 INTERNATIONAL NORMAL RATIO (test code=INR) 1.2 0.8-1.2 TARGET INR BY INDICATION Indication INR1. Prophylaxis of venous thrombosis 2.0 - 3.0 (orthopedic surgery), Prophylaxis of venous thrombosis (other than high-risk surgery), Treatment of Deep Vein Thrombosis/Pulmonary Embolism, Prevention of systemic embolism - Tissue heart valves, Acute Myocardial Infarction (to prevent systemic embolism), Valvular heart disease, Atrial Fibrillation, Bileaflet mechanical valve in aortic position.2. Mechanical prosthetic valves (high risk), 2.5 - 3.5 Presence of Lupus Anticoagulant or Antiphospholipid Antibodies, Prevention of systemic embolism - Acute Myocardial Infarction (to prevent recurrent infarct). CBC W/AUTO [id number] 05:35:00* Test Item Value Reference Range Comments WHITE BLOOD CELL (test code=WBC) 14.76 x10 3/uL 4.5-11.0 RED BLOOD CELL (test code=RBC) 2.40 x10 6/uL 4.00-5.60 HEMOGLOBIN (test code=HGB) 7.3 g/dL 12.5-16.9 HEMATOCRIT (test code=HCT) 23.5 % 37.5-50.7 MEAN CELL VOLUME (test code=MCV) 97.9 fL 81.0-99.0 MEAN CELL HGB (test code=MCH) 30.4 pg 27.0-33.0 MEAN CELL HGB CONCETRATION (test code=MCHC) 31.1 g/dL 33.0-37.0 RED CELL DISTRIBUTION WIDTH CV (test code=RDW) 14.0 % 11.5-14.5 RED CELL DISTRIBUTION WIDTH SD (test code=RDW-SD) 49.8 fL 37.0-54.0 PLATELET COUNT (test code=PLT) 300 x10 3/uL 150-400 MEAN PLATELET VOLUME (test code=MPV) 10.0 fL 7.0-9.0 LYMPHOCYTE % (test code=LY%) % 14.0-32.0 MANUAL DIFF REQUIRED (test code=MDIFF) COMMENTS: Daily while in ICUPROCALCITONIN (PCT)2018-11-25 18:57:00* Test Item Value Reference Range Comments PROCALCITONIN (PCT) (test code=PROCAL) 2.07 ng/mL 0.00-0.05 PROCALCITONIN (PCT) NORMAL RANGE (ADULT): <0.05 NG/ML. * a concentration <0.5 ng/mL represents a low risk of severe sepsis and/or septic shock.* a concentration >2 ng/mL represents a high risk of severe sepsis and/or septic shock.Nevertheless, concentrations <0.5 ng/mL do not exclude aninfection, on account of localized infections (withoutsystemic signs) which can be associated with such lowconcentrations, or a systemic infection in its initialstages (< 6 hours). Furthermore, increased procalcitonincan occur without infection. PCT concentrations between 0.5and 2.0 ng/mL should be interpreted taking into account thepatient's history. It is recommended to retest PCT within6-24 hours if any concentrations <2 ng/mL are obtained. URINALYSIS [id number] 16:42:00* Test Item Value Reference Range Comments UA COLOR (test code=COLU) STRAW YEL/STRAW UA APPEARANCE (test code=APPU) CLEAR CLEAR UA GLUCOSE DIPSTICK (test code=DGLUU) NEGATIVE NEGATIVE UA BILIRUBIN DIPSTICK (test code=BILU) NEGATIVE NEGATIVE UA KETONE DIPSTICK (test code=KETU) NEGATIVE NEGATIVE UA SPECIFIC GRAVITY (test code=SGU) 1.004 1.005-1.030 UA BLOOD DIPSTICK (test code=ALEX) NEGATIVE NEGATIVE UA PH DIPSTICK (test code=JORJE) 7.0 5.0-7.0 UA PROTEIN DIPSTICK (test code=PROU) NEGATIVE NEGATIVE UA UROBILINIOGEN DIPSTICK (test code=URO) 0.2 mg/dL 0.2-1.0 UA NITRITE DIPSTICK (test code=MALINI) NEGATIVE NEGATIVE UA LEUKOCYTE ESTERASE DIPSTICK (test code=LEUU) NEGATIVE NEGATIVE UA WBC (test code=WBCU) 0-3 WBC/HPF 0-3 UA RBC (test code=RBCU) 0-3 RBC/HPF 0-3 UA BACTERIA (test code=BACU) NONE SEEN /HPF NONE SEEN UA SQUAMOUS CELLS (test code=SQU) NONE SEEN /HPF NONE SEEN UA CULT [id number] 16:42:00* Test Item Value Reference Range Comments UA CULTURE NEEDED? (test code=UACULT) NO, WBC<10 Criteria Culture Chk Criteria not met, Urine Culture cancelled. CBC W/AUTO [id number] 11:52:00* Test Item Value Reference Range Comments WHITE BLOOD CELL (test code=WBC) 17.99 x10 3/uL 4.5-11.0 RED BLOOD CELL (test code=RBC) 2.54 x10 6/uL 4.00-5.60 HEMOGLOBIN (test code=HGB) 7.5 g/dL 12.5-16.9 HEMATOCRIT (test code=HCT) 24.7 % 37.5-50.7 MEAN CELL VOLUME (test code=MCV) 97.2 fL 81.0-99.0 MEAN CELL HGB (test code=MCH) 29.5 pg 27.0-33.0 MEAN CELL HGB CONCETRATION (test code=MCHC) 30.4 g/dL 33.0-37.0 RED CELL DISTRIBUTION WIDTH CV (test code=RDW) 14.1 % 11.5-14.5 RED CELL DISTRIBUTION WIDTH SD (test code=RDW-SD) 49.5 fL 37.0-54.0 PLATELET COUNT (test code=PLT) 292 x10 3/uL 150-400 MEAN PLATELET VOLUME (test code=MPV) 10.3 fL 7.0-9.0 NEUTROPHIL % (test code=NT%) 84.8 % 56.0-77.0 IMMATURE GRANULOCYTE % (test code=IG%) 2.2 % 0.0-2.0 LYMPHOCYTE % (test code=LY%) 7.4 % 14.0-32.0 MONOCYTE % (test code=MO%) 5.5 % 4.8-9.0 EOSINOPHIL % (test code=EO%) 0.0 % 0.3-3.7 BASOPHIL % (test code=BA%) 0.1 % 0.0-2.0 NUCLEATED RBC % (test code=NRBC%) 0.2 % 0-0 NEUTROPHIL # (test code=NT#) 15.26 x10 3/uL 2.0-7.6 IMMATURE GRANULOCYTE # (test code=IG#) 0.40 x10 3/uL 0.00-0.03 LYMPHOCYTE # (test code=LY#) 1.33 x10 3/uL 1.0-3.8 MONOCYTE # (test code=MO#) 0.99 x10 3/uL 0.1-0.8 EOSINOPHIL # (test code=EO#) 0.00 x10 3/uL 0.0-0.2 BASOPHIL # (test code=BA#) 0.01 x10 3/uL 0.0-0.2 NUCLEATED RBC # (test code=NRBC#) 0.03 x10 3/uL 0.0-0.1 MANUAL DIFF REQUIRED (test code=MDIFF) NO SLIDE REVIEWED, CONSISTENT WITH AUTO DIFF. COMMENTS: Daily while in [facility] METABOLIC [id number] 07:43:00* Test Item Value Reference Range Comments SODIUM (test code=NA) 143 mEq/L 134-147 POTASSIUM (test code=K) 3.6 mEq/L 3.4-5.0 CHLORIDE (test code=CL) 110 mEq/L 100-108 CARBON DIOXIDE (test code=CO2) 28 mEq/L 21-33 ANION GAP (test code=GAP) 9 0-20 GLUCOSE (test code=GLU) 104 mg/dL 70-110 BLOOD UREA NITROGEN (test code=BUN) 14 mg/dL 7-18 GLOMERULAR FILTRATION RATE (test code=GFR) 629.3 95-105 Units of measure=ml/min/1.73 m2 CREATININE (test code=CREAT) 0.2 mg/dL 0.6-1.3 CALCIUM (test code=CA) 8.2 mg/dL 8.0-10.5 COMMENTS: Daily while in ICUHEPATIC FUNCTION [id number] 07:43:00* Test Item Value Reference Range Comments TOTAL PROTEIN (test code=PROT) 5.5 g/dL 6.4-8.2 ALBUMIN (test code=ALB) 1.90 g/dL 3.4-5.0 BILIRUBIN TOTAL (test code=BILT) 0.30 mg/dL 0.0-1.0 BILIRUBIN DIRECT (test code=BILD) 0.20 MG/DL 0.0-0.30 BILIRUBIN INDIRECT (test code=BILIND) 0.10 MG/DL SGOT/AST (test code=AST) 6 IUnit/L 15-37 SGPT/ALT (test code=ALT) 14 IUnit/L 15-65 ALKALINE PHOSPHATASE TOTAL (test code=ALKP) 44 IUnit/L 20-125 COMMENTS: Daily while in [id number] 07:43:00* Test Item Value Reference Range Comments PHOSPHOROUS (test code=PHOS) 2.6 mg/dL 2.5-4.9 COMMENTS: Daily while in [id number] 07:43:00* Test Item Value Reference Range Comments MAGNESIUM (test code=MAG) 2.10 mg/dL 1.8-2.4 COMMENTS: Daily while in [id number] 07:43:00* Test Item Value Reference Range Comments PREALBUMIN (test code=PREALB) 19.8 mg/dL 16.0-40.0 COMMENTS: Daily while in ICUCBC W/AUTO [id number] 07:31:00* Test Item Value Reference Range Comments WHITE BLOOD CELL (test code=WBC) 17.99 x10 3/uL 4.5-11.0 RED BLOOD CELL (test code=RBC) 2.54 x10 6/uL 4.00-5.60 HEMOGLOBIN (test code=HGB) 7.5 g/dL 12.5-16.9 HEMATOCRIT (test code=HCT) 24.7 % 37.5-50.7 MEAN CELL VOLUME (test code=MCV) 97.2 fL 81.0-99.0 MEAN CELL HGB (test code=MCH) 29.5 pg 27.0-33.0 MEAN CELL HGB CONCETRATION (test code=MCHC) 30.4 g/dL 33.0-37.0 RED CELL DISTRIBUTION WIDTH CV (test code=RDW) 14.1 % 11.5-14.5 RED CELL DISTRIBUTION WIDTH SD (test code=RDW-SD) 49.5 fL 37.0-54.0 PLATELET COUNT (test code=PLT) 292 x10 3/uL 150-400 MEAN PLATELET VOLUME (test code=MPV) 10.3 fL 7.0-9.0 LYMPHOCYTE % (test code=LY%) % 14.0-32.0 MANUAL DIFF REQUIRED (test code=MDIFF) COMMENTS: Daily while in ICUBASIC METABOLIC [id number] 07:29:00* Test Item Value Reference Range Comments SODIUM (test code=NA) 143 mEq/L 134-147 POTASSIUM (test code=K) 3.6 mEq/L 3.4-5.0 CHLORIDE (test code=CL) 110 mEq/L 100-108 CARBON DIOXIDE (test code=CO2) 28 mEq/L 21-33 ANION GAP (test code=GAP) 9 0-20 GLUCOSE (test code=GLU) 104 mg/dL 70-110 BLOOD UREA NITROGEN (test code=BUN) 14 mg/dL 7-18 GLOMERULAR FILTRATION RATE (test code=GFR) 629.3 95-105 Units of measure=ml/min/1.73 m2 CREATININE (test code=CREAT) 0.2 mg/dL 0.6-1.3 CALCIUM (test code=CA) 8.2 mg/dL 8.0-10.5 COMMENTS: Daily while in ICUHEPATIC FUNCTION [id number] 07:29:00* Test Item Value Reference Range Comments TOTAL PROTEIN (test code=PROT) g/dL 6.4-8.2 ALBUMIN (test code=ALB) 1.90 g/dL 3.4-5.0 BILIRUBIN TOTAL (test code=BILT) mg/dL 0.0-1.0 BILIRUBIN DIRECT (test code=BILD) 0.20 MG/DL 0.0-0.30 SGOT/AST (test code=AST) 6 IUnit/L 15-37 SGPT/ALT (test code=ALT) 14 IUnit/L 15-65 ALKALINE PHOSPHATASE TOTAL (test code=ALKP) IUnit/L 20-125 COMMENTS: Daily while in [id number] 07:29:00* Test Item Value Reference Range Comments PHOSPHOROUS (test code=PHOS) mg/dL 2.5-4.9 COMMENTS: Daily while in [id number] 07:29:00* Test Item Value Reference Range Comments MAGNESIUM (test code=MAG) 2.10 mg/dL 1.8-2.4 COMMENTS: Daily while in [id number] 07:29:00* Test Item Value Reference Range Comments PREALBUMIN (test code=PREALB) mg/dL 16.0-40.0 COMMENTS: Daily while in ICU- XR CHEST 1 [id number] 07:19:00 FAX: Ap Velez [phone] [place]: St: ADM FAX: Franko Nieto MD [phone] FAX: Kelsey Moore MD --------- Name: NICHOLAS VARGAS III [facility] : 1975 Age/S: 43/M [address] [place] [address] it #: [id number] Loc: G.M328 [place] [address] Phys: Kelsey Moore MD Acct: [id number] Dis Date: Status: ADM IN PH ONE #: [phone] Exam Date: 11/25/2018 0637 FAX #: [phone] Reason: ETT EXAMS: CPT CODE: [id number] XR CHEST 1 V 71464 CHEST, SINGLE VIEW HISTORY: Left pneumothorax Comparison made to prior chest x-ray dated 11/24/18. FINDINGS: Small r esidual left apical pneumothorax is no longer seen. Left chest tube posit ion is stable. Endotracheal tube tip is at the mid tracheal level, nasoga stric tube is within the stomach. Defibrillator pads overlie the chest. Heart size and pulmonary vascularity are stable. The chest is emphysemato us. IMPRESSION: 1. Stable left ches t tube position, previously described pneumothorax no longer seen. 2. Emphysematous chest. 3. Stable endotracheal tube and nasogastric tube position. SL:01 Electronic ally Signed by Thalia Diamond on 11/25/2018 at 0719 Reported and signed by: Lucien yates M.D. CC: Ap Allison MD; Franko Guido MD; Kelsey Maria MD Technologist: Rosey Vargas RT(R); René Lewis Trnscrd Date/Time/By: 11/25/2018 (07) : By: Ryland Orig Print D/T: S: 0 11/25/2018 (0722) PAGE 1 Signed Re port [id number] 00:31:00* Test Item Value Reference Range Comments GLUBED (test code=GLUBED) 101 MG/DL 70-110 Performed by certified marshmallow machine operator at [facility] - XR CHEST 1 [id number] 20:37:00 FAX: Ap Velez [phone] [place]: St: ADM FAX: Franko Nieto MD [phone] FAX: Kelsey Moore MD [phone] Name: NICHOLAS VARGAS III [facility] : 1975 Age/S: 43/M [address] [place] [address] Unit #: [id number] Loc: G.M328 [place] [address] Phys: Kelsey Moore MD Acct: [id number] Dis Date: Status: ADM IN ONE #: [phone] Exam Date: 11/24/20181941 FAX #: [phone] Reason: RESP FAIL EXAMS: CPT CODE: [id number] XR CHEST 1 V 76478 PROCEDURE: - XR CHEST 1 V, 11/24/2018 at 1927 hours INDICATION: 43 years Male, RESP FAIL . COMPARISON: Chest x-ray same day at 1656 hours FINDINGS: Gastric tube is stable. Cardiac pacing pads. Status post intubation with the tip 3.5 cm above the missy. Left gastric tube is stable with the tip over the left apex. Interval decrease of the l eft apical pneumothorax measuring 1 cm maximal thickness, previously 2 cm. Postsurgical changes with suture line along the left apex. Cardiac silh ouette is stable. Bibasilar atelectasis versus infiltrate are stable. No pleural effusion. Stable ovoid density of the left midlung. IMPRESSION: 1. Life support device(s) as discussed above. 2. Interval decrease of the small left apical pneumothorax 3. Stable bib asilar atelectasis versus infiltrate SL: SAYRA Elec tronically Signed by Thalia Muñiz on 11/24/2018 at 2036 Reported and signed by: Nelson Muñiz M.D. CC: Ap Allison MD; Franko Guido MD; Kelsey Moore MD Technologist: Allie Hilton, RT(R); Miri Gilman, RT(R) Trntnrd Date/Time/By: 11/24/2018 (2036) : By: [email or web address] Orig Print D/T: S: 11/24/2018 (2040) PAGE 1 Signed Report ARTERIAL BLOOD [id number] 20:20:00* Test Item Value Reference Range Comments ARTERIAL BLOOD GAS PH (test code=PHA) 7.424 7.35-7.45 ARTERIAL BLOOD GAS PCO2 (test code=PCO2A) 45.8 mmHg 35-45 ARTERIAL BLOOD GAS PO2 (test code=PO2A) 493 mmHg 80-100 BICARBONATE TOTAL HCO3 (test code=HCO3) 29.9 mmol/L 22.0-26.0 BASE EXCESS (test code=REYNA) 6.0 mmol/L -4-4 ABG O2 SATURATION (test code=SATA) 100 % 90-100 FIO2 (test code=FIO2A) 100 % ABG DELIVERY (test code=MAGNOLIA) Vent ABG VENT MODE (test code=MODEA) AC v con ABG VENT RESP RATE (test code=RRA) 16 /MIN ABG TIDAL VOLUME (test code=TVA) 450 ml ABG PEEP (test code=PEEPA) 5 cmH2O Performed by certified marshmallow machine operator at [facility] ABG TEMPERATURE (test code=TEMPA) 98.7 F ABG SITE (test code=SITEA) Art line PREDICTED AA GRADIENT (test code=AP) 171 PREDICTED PO2 (test code=OP) 487 a/A RATIO (test code=RATIO) 0.75 TCO2 ARTERIAL (test code=TCO2A) 31 A-A GRADIENT (test code=AAGRADE) 165 - XR CHEST 1 [id number] 17:54:00 FAX: Ap Velez [phone] [place]: St: ADM FAX: Franko Nieto MD [phone] FAX: Iwona Fox MD Name: NICHOLAS VARGAS III [facility] : 1975 Age/S: 43/M [address] [place] [address] Bl Unit #: [id number] Loc: G.M328 [place] [address] Phys: Iwona Fox MD Acct: [id number] Dis Date: Status: ADM IN PH ONE #: [phone] Exam Date: 11/24/2018 1741 FAX #: [phone] Reason: NG TUBE PLACEMENT EXAMS: CPT CODE: [id number] XR CHEST 1 V 65113 PROCEDURE: - XR CHEST 1 V, 11/24/2018 at 1656 hours INDICATION: 43 years Male, NG TUBE PLACEMENT. COMPARISON: Chest x-ray of 11/24/2018 at 0608 h ours FINDINGS: Bilateral lung apices are beyond the imaging plane. Gastric tube courses along the expected esophagus and stomach with the t ip at the gastric fundus and the side hole just distal to the GE junction. Left chest tube extending to the left apex with the tip beyond the imaging plane. Cardiac silhouette is normal. Bibasilar atelectasis vers us infiltrate. Small left apical pneumothorax measuring 2 cm in maximal t hickness. Near 4.5 cm ovoid density along the left midlung laterally is re demonstrated. IMPRESSION: 1. Life support device(s) are stable. 2. Small left apical pneumothorax 3. Bibasilar atelect asis versus infiltrate 4. Stable ovoid density at the left midlung. Co nsider CT. SL: SAYRA at 7744 Reported and signed by: Nelson Muñiz M.D. CC: Ap Allison MD; Franko Guido MD; Prabhjot Fox MD Technologist: Allie Hilton RT(R) Trnscrd Date/Time/By: 11/24/2018 (2764) : By: [email or web address] Orig Print D/T : S: 11/24/2018 (0133) PAGE 1 Sig dinah Report CBC W/AUTO [id number] 11:48:00* Test Item Value Reference Range Comments WHITE BLOOD CELL (test code=WBC) 16.54 x10 3/uL 4.5-11.0 RED BLOOD CELL (test code=RBC) 2.53 x10 6/uL 4.00-5.60 HEMOGLOBIN (test code=HGB) 7.5 g/dL 12.5-16.9 HEMATOCRIT (test code=HCT) 24.2 % 37.5-50.7 MEAN CELL VOLUME (test code=MCV) 95.7 fL 81.0-99.0 MEAN CELL HGB (test code=MCH) 29.6 pg 27.0-33.0 MEAN CELL HGB CONCETRATION (test code=MCHC) 31.0 g/dL 33.0-37.0 RED CELL DISTRIBUTION WIDTH CV (test code=RDW) 13.8 % 11.5-14.5 RED CELL DISTRIBUTION WIDTH SD (test code=RDW-SD) 48.4 fL 37.0-54.0 PLATELET COUNT (test code=PLT) 310 x10 3/uL 150-400 MEAN PLATELET VOLUME (test code=MPV) 10.3 fL 7.0-9.0 NEUTROPHIL % (test code=NT%) 88.0 % 56.0-77.0 IMMATURE GRANULOCYTE % (test code=IG%) 1.1 % 0.0-2.0 LYMPHOCYTE % (test code=LY%) 5.9 % 14.0-32.0 MONOCYTE % (test code=MO%) 4.9 % 4.8-9.0 EOSINOPHIL % (test code=EO%) 0.0 % 0.3-3.7 BASOPHIL % (test code=BA%) 0.1 % 0.0-2.0 NUCLEATED RBC % (test code=NRBC%) 0.2 % 0-0 NEUTROPHIL # (test code=NT#) 14.56 x10 3/uL 2.0-7.6 IMMATURE GRANULOCYTE # (test code=IG#) 0.18 x10 3/uL 0.00-0.03 LYMPHOCYTE # (test code=LY#) 0.98 x10 3/uL 1.0-3.8 MONOCYTE # (test code=MO#) 0.81 x10 3/uL 0.1-0.8 EOSINOPHIL # (test code=EO#) 0.00 x10 3/uL 0.0-0.2 BASOPHIL # (test code=BA#) 0.01 x10 3/uL 0.0-0.2 NUCLEATED RBC # (test code=NRBC#) 0.03 x10 3/uL 0.0-0.1 MANUAL DIFF REQUIRED (test code=MDIFF) NO SLIDE REVIEWED, CONSISTENT WITH AUTO DIFF. - XR CHEST 1 [id number] 07:15:00 FAX: Vandana Paez MD [phone] [place]: St: ADM FAX: Ap Velez [phone] FAX: Franko Nieto MD [phone] Name: NICHOLAS VARGAS III [facility] [place] : 1975 Age/S: 43/M [address] [place] [address] Unit #: [id number] Loc: [address] [place] [address] Phys: Vandana Maza MD Acct: [id number] Dis Date: Status: ADM IN PH ONE #: [phone] Exam Date: 11/24/2018 0647 FAX #: [phone] Reason: Resp failure EXAMS: CPT CODE: [id number] XR CHEST 1 V 07126 CHEST, SINGLE VIEW HISTORY: Respiratory failure, pneumothorax Co mparison made to prior chest x-ray dated 11/13/18. FINDINGS: Left-sided chest tube position is adequate. No significant pneum othorax. No new lung infiltrate. There are lower lung volumes with right lung base subsegmental atelectasis. Endotracheal tube and central venous catheter position is stable. IMPRESSION: 1. Stable left chest tube position, no significant pneumothorax. 2. Increasing density in the medial right lung base consistent with sub segmental atelectasis. 3. No other change. SL:01 at 0715 Reported and signed by: Lucien Diamond M.D. CC: Vandana Maza MD; Ap Allison MD; Franko Guido MD Technologist: Rosey Vargas, RT(R); René Lewis Trnscrd Date/Time/By: 11/24/2018 (0715) : By: Juan YODER Orig Print D/T: S: 11/24/2018 (0719) DEN ESTEVEZ 1 Signed Report BASIC METABOLIC [id number] 07:04:00* Test Item Value Reference Range Comments SODIUM (test code=NA) 142 mEq/L 134-147 POTASSIUM (test code=K) 3.3 mEq/L 3.4-5.0 CHLORIDE (test code=CL) 109 mEq/L 100-108 CARBON DIOXIDE (test code=CO2) 26 mEq/L 21-33 ANION GAP (test code=GAP) 10 0-20 GLUCOSE (test code=GLU) 137 mg/dL 70-110 BLOOD UREA NITROGEN (test code=BUN) 17 mg/dL 7-18 GLOMERULAR FILTRATION RATE (test code=GFR) 394.1 95-105 Units of measure=ml/min/1.73 m2 CREATININE (test code=CREAT) 0.3 mg/dL 0.6-1.3 CALCIUM (test code=CA) 8.1 mg/dL 8.0-10.5 [id number] 07:04:00* Test Item Value Reference Range Comments MAGNESIUM (test code=MAG) 2.20 mg/dL 1.8-2.4 CBC W/AUTO [id number] 06:29:00* Test Item Value Reference Range Comments WHITE BLOOD CELL (test code=WBC) 16.54 x10 3/uL 4.5-11.0 RED BLOOD CELL (test code=RBC) 2.53 x10 6/uL 4.00-5.60 HEMOGLOBIN (test code=HGB) 7.5 g/dL 12.5-16.9 HEMATOCRIT (test code=HCT) 24.2 % 37.5-50.7 MEAN CELL VOLUME (test code=MCV) 95.7 fL 81.0-99.0 MEAN CELL HGB (test code=MCH) 29.6 pg 27.0-33.0 MEAN CELL HGB CONCETRATION (test code=MCHC) 31.0 g/dL 33.0-37.0 RED CELL DISTRIBUTION WIDTH CV (test code=RDW) 13.8 % 11.5-14.5 RED CELL DISTRIBUTION WIDTH SD (test code=RDW-SD) 48.4 fL 37.0-54.0 PLATELET COUNT (test code=PLT) 310 x10 3/uL 150-400 MEAN PLATELET VOLUME (test code=MPV) 10.3 fL 7.0-9.0 LYMPHOCYTE % (test code=LY%) % 14.0-32.0 MANUAL DIFF REQUIRED (test code=MDIFF) ARTERIAL BLOOD [id number] 05:55:00* Test Item Value Reference Range Comments ARTERIAL BLOOD GAS PH (test code=PHA) 7.448 7.35-7.45 ARTERIAL BLOOD GAS PCO2 (test code=PCO2A) 33.3 mmHg 35-45 ARTERIAL BLOOD GAS PO2 (test code=PO2A) 137 mmHg 80-100 BICARBONATE TOTAL HCO3 (test code=HCO3) 23.1 mmol/L 22.0-26.0 BASE EXCESS (test code=REYNA) -1.0 mmol/L -4-4 ABG O2 SATURATION (test code=SATA) 99 % 90-100 FIO2 (test code=FIO2A) 35 % ABG DELIVERY (test code=MAGNOLIA) Vent ABG VENT MODE (test code=MODEA) AC v con ABG VENT RESP RATE (test code=RRA) 16 /MIN ABG TIDAL VOLUME (test code=TVA) 450 ml ABG PEEP (test code=PEEPA) 5 cmH2O Performed by certified marshmallow machine operator at [facility] ABG TEMPERATURE (test code=TEMPA) 98.8 F ABG SITE (test code=SITEA) Art line PREDICTED AA GRADIENT (test code=AP) 54 PREDICTED PO2 (test code=OP) 155 a/A RATIO (test code=RATIO) 0.65 TCO2 ARTERIAL (test code=TCO2A) 24 A-A GRADIENT (test code=AAGRADE) 73 [id number] 23:53:00* Test Item Value Reference Range Comments GLUBED (test code=GLUBED) 126 MG/DL 70-110 Performed by certified marshmallow machine operator at [facility] CBC W/AUTO [id number] 07:54:00* Test Item Value Reference Range Comments WHITE BLOOD CELL (test code=WBC) 15.46 x10 3/uL 4.5-11.0 RED BLOOD CELL (test code=RBC) 2.59 x10 6/uL 4.00-5.60 HEMOGLOBIN (test code=HGB) 7.7 g/dL 12.5-16.9 HEMATOCRIT (test code=HCT) 25.5 % 37.5-50.7 MEAN CELL VOLUME (test code=MCV) 98.5 fL 81.0-99.0 MEAN CELL HGB (test code=MCH) 29.7 pg 27.0-33.0 MEAN CELL HGB CONCETRATION (test code=MCHC) 30.2 g/dL 33.0-37.0 RED CELL DISTRIBUTION WIDTH CV (test code=RDW) 13.4 % 11.5-14.5 RED CELL DISTRIBUTION WIDTH SD (test code=RDW-SD) 49.1 fL 37.0-54.0 PLATELET COUNT (test code=PLT) 323 x10 3/uL 150-400 MEAN PLATELET VOLUME (test code=MPV) 10.3 fL 7.0-9.0 NEUTROPHIL % (test code=NT%) 89.4 % 56.0-77.0 IMMATURE GRANULOCYTE % (test code=IG%) 0.8 % 0.0-2.0 LYMPHOCYTE % (test code=LY%) 4.8 % 14.0-32.0 MONOCYTE % (test code=MO%) 4.9 % 4.8-9.0 EOSINOPHIL % (test code=EO%) 0.0 % 0.3-3.7 BASOPHIL % (test code=BA%) 0.1 % 0.0-2.0 NUCLEATED RBC % (test code=NRBC%) 0.1 % 0-0 NEUTROPHIL # (test code=NT#) 13.83 x10 3/uL 2.0-7.6 IMMATURE GRANULOCYTE # (test code=IG#) 0.12 x10 3/uL 0.00-0.03 LYMPHOCYTE # (test code=LY#) 0.74 x10 3/uL 1.0-3.8 MONOCYTE # (test code=MO#) 0.76 x10 3/uL 0.1-0.8 EOSINOPHIL # (test code=EO#) 0.00 x10 3/uL 0.0-0.2 BASOPHIL # (test code=BA#) 0.01 x10 3/uL 0.0-0.2 NUCLEATED RBC # (test code=NRBC#) 0.02 x10 3/uL 0.0-0.1 MANUAL DIFF REQUIRED (test code=MDIFF) NO SLIDE REVIEWED, CONSISTENT WITH AUTO DIFF. - XR CHEST 1 [id number] 07:09:00 FAX: Ap Velez [phone] [place]: St: ADM FAX: Franko Nieto MD [phone] FAX: Torres Phelps MD [phone] Name: NICHOLAS VARGAS III [facility] [place] : 1975 Age/S: 43/M [address] [place] [address] Unit #: [id number] Loc: G.M328 [place] [address] Phys: Torres Rubio MD Acct: [id number] Dis Date: Status: ADM IN ONE #: [phone] Exam Date: 11/23/2018 06 FAX #: [phone] Reason: S/P Thoracotomy EXAMS: CPT CODE: [id number] XR CHEST 1 V 93928 PROCEDURE: Diana st Radiograph. Clinical Indication: Status post thoracotomy, pneu mothorax. Comparison: Chest radiograph 11/22/2018. FI NDINGS: The chest shows improving subsegmental atelectasis at the left lung base. Support lines remain in place. A previously noted convex density at the lateral left hemithorax is not definitively seen on the current study. There is biapical pleural thickening, left greater than right. Scarring is present in the medial left apex. The heart size and pulmonary vasculature are normal. The trachea is midline. There a re no clinically significant osseous abnormalities noted. IMPRESSION: 1. Postoperative chest with improving subsegmental atelecta sis at the left lung base. SL: ABE- H at 0709 Rep orted and signed by: Shai Zapien M.D. CC: Ap Allison MD; Franko Guido MD; Torres Rubio MD Technologist: RT Ricky(R); RT Kevin(R) Trnscrd Date/Time/By: 11/23/2018 (0709) : By: Mary Orig Print D/T: S: 11/23/2018 (0712) PAGE 1 Signed Report BASIC METABOLIC [id number] 06:30:00* Test Item Value Reference Range Comments SODIUM (test code=NA) 145 mEq/L 134-147 POTASSIUM (test code=K) 3.5 mEq/L 3.4-5.0 CHLORIDE (test code=CL) 113 mEq/L 100-108 CARBON DIOXIDE (test code=CO2) 25 mEq/L 21-33 ANION GAP (test code=GAP) 11 0-20 GLUCOSE (test code=GLU) 133 mg/dL 70-110 BLOOD UREA NITROGEN (test code=BUN) 13 mg/dL 7-18 GLOMERULAR FILTRATION RATE (test code=GFR) 394.1 95-105 Units of measure=ml/min/1.73 m2 CREATININE (test code=CREAT) 0.3 mg/dL 0.6-1.3 CALCIUM (test code=CA) 8.2 mg/dL 8.0-10.5 [id number] 06:30:00* Test Item Value Reference Range Comments TRIGLYCERIDES (test code=TRIG) 92 mg/dL 40-150 [id number] 06:30:00* Test Item Value Reference Range Comments MAGNESIUM (test code=MAG) 2.10 mg/dL 1.8-2.4 CBC W/AUTO [id number] 05:42:00* Test Item Value Reference Range Comments WHITE BLOOD CELL (test code=WBC) 15.46 x10 3/uL 4.5-11.0 RED BLOOD CELL (test code=RBC) 2.59 x10 6/uL 4.00-5.60 HEMOGLOBIN (test code=HGB) 7.7 g/dL 12.5-16.9 HEMATOCRIT (test code=HCT) 25.5 % 37.5-50.7 MEAN CELL VOLUME (test code=MCV) 98.5 fL 81.0-99.0 MEAN CELL HGB (test code=MCH) 29.7 pg 27.0-33.0 MEAN CELL HGB CONCETRATION (test code=MCHC) 30.2 g/dL 33.0-37.0 RED CELL DISTRIBUTION WIDTH CV (test code=RDW) 13.4 % 11.5-14.5 RED CELL DISTRIBUTION WIDTH SD (test code=RDW-SD) 49.1 fL 37.0-54.0 PLATELET COUNT (test code=PLT) 323 x10 3/uL 150-400 MEAN PLATELET VOLUME (test code=MPV) 10.3 fL 7.0-9.0 LYMPHOCYTE % (test code=LY%) % 14.0-32.0 MANUAL DIFF REQUIRED (test code=MDIFF) ARTERIAL BLOOD [id number] 04:20:00* Test Item Value Reference Range Comments ARTERIAL BLOOD GAS PH (test code=PHA) 7.480 7.35-7.45 ARTERIAL BLOOD GAS PCO2 (test code=PCO2A) 30.9 mmHg 35-45 ARTERIAL BLOOD GAS PO2 (test code=PO2A) 189 mmHg 80-100 BICARBONATE TOTAL HCO3 (test code=HCO3) 23.1 mmol/L 22.0-26.0 BASE EXCESS (test code=REYNA) -1.0 mmol/L -4-4 ABG O2 SATURATION (test code=SATA) 100 % 90-100 FIO2 (test code=FIO2A) 35 % ABG DELIVERY (test code=MAGNOLIA) Vent ABG VENT MODE (test code=MODEA) AC v con ABG VENT RESP RATE (test code=RRA) 16 /MIN ABG TIDAL VOLUME (test code=TVA) 450 ml ABG PEEP (test code=PEEPA) 5 cmH2O Performed by certified marshmallow machine operator at [facility] ABG TEMPERATURE (test code=TEMPA) 97.9 F ABG SITE (test code=SITEA) Art line PREDICTED AA GRADIENT (test code=AP) 55 PREDICTED PO2 (test code=OP) 157 a/A RATIO (test code=RATIO) 0.89 TCO2 ARTERIAL (test code=TCO2A) 24 A-A GRADIENT (test code=AAGRADE) 24 SURGICAL [id number] 09:03:00 RUN DATE: 11/22/18 [facility] *LIVE* PAGE 1 RUN TIME: 902 Specimen Inqui ry RUN USER: INTERFACE PATIENT: NICHOLAS VARGAS III ACCT #: [id number] LOC: [facility] U #: [id number] AGE/SX: 43/M ROOM: [facility] RE11/17/18REG DR: Ap Allison : 73 BED: 1 DIS: STATUS: ADM IN TLOC: SPEC #: [id number] RECD: 11/20/18 STATUS: SOUT REQ #: [id number] CARLOS ALBERTO: 11/20/[address] [facility] [address]: Ap Allison MD ENTERED: 11/22/18 SP TYPE: SURG SPEC OTHR DR: Jared R eferrFranko Weston MD, David C S MD Patel, Dipsu Dilip MDORDERED: GM LEVEL 4 CODES: [id number] - LUNG, NOS COPIES TO: Self Referred Ap Allison MD [address] [place] [phone] [email or web address] Franko Guido MD [address] [facility] [address] [place] [phone] [email or web address] Rocco Gregory MD [address] [place] [phone] Alexia Dutta MD [address] [place] [phone] [email or web address] PROCEDURES: LEVEL 4 (Incomplete) TISSUES: 1. LUNG, NOS - Lung, left pleura, bx. 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 GROSS AND MICROSCOPIC GROSS EXAMINATION: Received in formali n labeled pleural biopsy is is a 6.1 x 3 x 2 cm wedge excision of lung tissue with clear 1.1 cm in greatest dimension blebs on the pleural surface. The margin at the emelyn is inked black. No definite mass lesions are identifi ed. Submitted (A)-(E). MICROSCOPIC EXAMINATION: Sections of the left anthony ng tissue reveal areas of subpleural Peggy changes. There are blood f ormations on the surface with surrounding fibrosis. POST-OP DIAGNOSIS Spontaneous left pneumothorax PRE-OP DIAGNOSIS Spontaneous left pneumothorax Signed S IGNATURE ON FILE Rocco Enrique DO 11/22/18 0903 ----- ------- END OF REPORT - XR CHEST 1 [id number] 08:32:00 FAX: Ap Velez [phone] [place]: St: ADM FAX: Franko Nieto MD [phone] FAX: Torres Phelps MD [phone] Name: NICHOLAS VARGAS III [facility] : 1975 Age/S: 43/M [address] [place], [place] [address] Unit #: [id number] Loc: G.M328 [place] [address] Phys: Torres Rubio MD Acct: [id number] Dis Date: Status: ADM IN ONE #: [phone] Exam Date: 11/22/2018 0548 FAX #: [phone] Reason: S/P Thoracotomy EXAMS: CPT CODE: [id number] XR CHEST 1 V 14960 CHEST 1 VIEW: 11/22/2018 COMPARISON: November 21, 2018 CLINICAL HIS TORY: S/P Thoracotomy FINDINGS: The cardiovascular silhouette is n ormal in size. There is a developing 4.5 cm ovoid density in the lateral aspect of the mid left hemithorax. Consider CT chest for further a ssessment. Left-sided chest tube noted. No definite pneumothorax i dentified. Minor left basilar parenchymal scarring/discoid atelect asis is seen. Endotracheal tube and NG tube are again seen. NG tub e tip overlies the gastric fundus. IMPRESSION: Developing ovoid density in the left midlung. Consider CT chest for further assessment. at 0832 Reported and signed by: Sean Dunaway M.D. CC: Ap Allison MD; Franko Guido MD; Torres Rubio MD Technologist: RT Kevin(Jonathan) Trnscrd Date/Time/By: 11/22/2018 (0832) : By: [email or web address] Orig Print D/T: S: (0835) PAGE 1 Signed Rep ort COMPREHENSIVE METABOLIC [id number] 06:15:00* Test Item Value Reference Range Comments SODIUM (test code=NA) 146 mEq/L 134-147 POTASSIUM (test code=K) 3.8 mEq/L 3.4-5.0 CHLORIDE (test code=CL) 113 mEq/L 100-108 CARBON DIOXIDE (test code=CO2) 29 mEq/L 21-33 ANION GAP (test code=GAP) 8 0-20 GLUCOSE (test code=GLU) 134 mg/dL 70-110 BLOOD UREA NITROGEN (test code=BUN) 9 mg/dL 7-18 GLOMERULAR FILTRATION RATE (test code=GFR) 394.1 95-105 Units of measure=ml/min/1.73 m2 CREATININE (test code=CREAT) 0.3 mg/dL 0.6-1.3 TOTAL PROTEIN (test code=PROT) 5.5 g/dL 6.4-8.2 ALBUMIN (test code=ALB) 2.00 g/dL 3.4-5.0 CALCIUM (test code=CA) 8.3 mg/dL 8.0-10.5 BILIRUBIN TOTAL (test code=BILT) 0.20 mg/dL 0.0-1.0 SGOT/AST (test code=AST) 7 IUnit/L 15-37 SGPT/ALT (test code=ALT) 15 IUnit/L 15-65 ALKALINE PHOSPHATASE TOTAL (test code=ALKP) 49 IUnit/L 20-125 [id number] 06:15:00* Test Item Value Reference Range Comments MAGNESIUM (test code=MAG) 1.90 mg/dL 1.8-2.4 CBC W/AUTO [id number] 06:03:00* Test Item Value Reference Range Comments WHITE BLOOD CELL (test code=WBC) 11.83 x10 3/uL 4.5-11.0 RED BLOOD CELL (test code=RBC) 2.38 x10 6/uL 4.00-5.60 HEMOGLOBIN (test code=HGB) 7.2 g/dL 12.5-16.9 HEMATOCRIT (test code=HCT) 23.9 % 37.5-50.7 MEAN CELL VOLUME (test code=MCV) 100.4 fL 81.0-99.0 MEAN CELL HGB (test code=MCH) 30.3 pg 27.0-33.0 MEAN CELL HGB CONCETRATION (test code=MCHC) 30.1 g/dL 33.0-37.0 RED CELL DISTRIBUTION WIDTH CV (test code=RDW) 13.3 % 11.5-14.5 RED CELL DISTRIBUTION WIDTH SD (test code=RDW-SD) 49.1 fL 37.0-54.0 PLATELET COUNT (test code=PLT) 277 x10 3/uL 150-400 MEAN PLATELET VOLUME (test code=MPV) 10.3 fL 7.0-9.0 NEUTROPHIL % (test code=NT%) 84.2 % 56.0-77.0 IMMATURE GRANULOCYTE % (test code=IG%) 1.6 % 0.0-2.0 LYMPHOCYTE % (test code=LY%) 9.1 % 14.0-32.0 MONOCYTE % (test code=MO%) 5.0 % 4.8-9.0 EOSINOPHIL % (test code=EO%) 0.0 % 0.3-3.7 BASOPHIL % (test code=BA%) 0.1 % 0.0-2.0 NUCLEATED RBC % (test code=NRBC%) 0.2 % 0-0 NEUTROPHIL # (test code=NT#) 9.96 x10 3/uL 2.0-7.6 IMMATURE GRANULOCYTE # (test code=IG#) 0.19 x10 3/uL 0.00-0.03 LYMPHOCYTE # (test code=LY#) 1.08 x10 3/uL 1.0-3.8 MONOCYTE # (test code=MO#) 0.59 x10 3/uL 0.1-0.8 EOSINOPHIL # (test code=EO#) 0.00 x10 3/uL 0.0-0.2 BASOPHIL # (test code=BA#) 0.01 x10 3/uL 0.0-0.2 NUCLEATED RBC # (test code=NRBC#) 0.02 x10 3/uL 0.0-0.1 MANUAL DIFF REQUIRED (test code=MDIFF) NO BASIC METABOLIC [id number] 05:32:00* Test Item Value Reference Range Comments SODIUM (test code=NA) 144 mEq/L 134-147 POTASSIUM (test code=K) 4.0 mEq/L 3.4-5.0 CHLORIDE (test code=CL) 111 mEq/L 100-108 CARBON DIOXIDE (test code=CO2) 29 mEq/L 21-33 ANION GAP (test code=GAP) 8 0-20 GLUCOSE (test code=GLU) 138 mg/dL 70-110 BLOOD UREA NITROGEN (test code=BUN) 7 mg/dL 7-18 GLOMERULAR FILTRATION RATE (test code=GFR) 629.3 95-105 Units of measure=ml/min/1.73 m2 CREATININE (test code=CREAT) 0.2 mg/dL 0.6-1.3 CALCIUM (test code=CA) 8.8 mg/dL 8.0-10.5 [id number] 05:32:00* Test Item Value Reference Range Comments MAGNESIUM (test code=MAG) 1.80 mg/dL 1.8-2.4 ARTERIAL BLOOD [id number] 05:22:00* Test Item Value Reference Range Comments ARTERIAL BLOOD GAS PH (test code=PHA) 7.473 7.35-7.45 ARTERIAL BLOOD GAS PCO2 (test code=PCO2A) 38.4 mmHg 35-45 ARTERIAL BLOOD GAS PO2 (test code=PO2A) 263 mmHg 80-100 BICARBONATE TOTAL HCO3 (test code=HCO3) 28.3 mmol/L 22.0-26.0 BASE EXCESS (test code=REYNA) 5.0 mmol/L -4-4 ABG O2 SATURATION (test code=SATA) 100 % 90-100 FIO2 (test code=FIO2A) 70 % ABG DELIVERY (test code=MAGNOLIA) Vent ABG VENT MODE (test code=MODEA) AC v con ABG VENT RESP RATE (test code=RRA) 16 /MIN ABG TIDAL VOLUME (test code=TVA) 450 ml ABG PEEP (test code=PEEPA) 5 cmH2O Performed by certified marshmallow machine operator at [facility] ABG TEMPERATURE (test code=TEMPA) 97.7 F ABG SITE (test code=SITEA) Art line PREDICTED AA GRADIENT (test code=AP) 117 PREDICTED PO2 (test code=OP) 335 a/A RATIO (test code=RATIO) 0.58 TCO2 ARTERIAL (test code=TCO2A) 29 A-A GRADIENT (test code=AAGRADE) 190 CBC W/AUTO [id number] 05:17:00* Test Item Value Reference Range Comments WHITE BLOOD CELL (test code=WBC) 14.26 x10 3/uL 4.5-11.0 RED BLOOD CELL (test code=RBC) 2.59 x10 6/uL 4.00-5.60 HEMOGLOBIN (test code=HGB) 7.8 g/dL 12.5-16.9 HEMATOCRIT (test code=HCT) 26.2 % 37.5-50.7 MEAN CELL VOLUME (test code=MCV) 101.2 fL 81.0-99.0 MEAN CELL HGB (test code=MCH) 30.1 pg 27.0-33.0 MEAN CELL HGB CONCETRATION (test code=MCHC) 29.8 g/dL 33.0-37.0 RED CELL DISTRIBUTION WIDTH CV (test code=RDW) 13.2 % 11.5-14.5 RED CELL DISTRIBUTION WIDTH SD (test code=RDW-SD) 48.7 fL 37.0-54.0 PLATELET COUNT (test code=PLT) 244 x10 3/uL 150-400 MEAN PLATELET VOLUME (test code=MPV) 10.1 fL 7.0-9.0 NEUTROPHIL % (test code=NT%) 91.3 % 56.0-77.0 IMMATURE GRANULOCYTE % (test code=IG%) 0.8 % 0.0-2.0 LYMPHOCYTE % (test code=LY%) 4.1 % 14.0-32.0 MONOCYTE % (test code=MO%) 3.7 % 4.8-9.0 EOSINOPHIL % (test code=EO%) 0.0 % 0.3-3.7 BASOPHIL % (test code=BA%) 0.1 % 0.0-2.0 NUCLEATED RBC % (test code=NRBC%) 0.0 % 0-0 NEUTROPHIL # (test code=NT#) 13.03 x10 3/uL 2.0-7.6 IMMATURE GRANULOCYTE # (test code=IG#) 0.11 x10 3/uL 0.00-0.03 LYMPHOCYTE # (test code=LY#) 0.58 x10 3/uL 1.0-3.8 MONOCYTE # (test code=MO#) 0.53 x10 3/uL 0.1-0.8 EOSINOPHIL # (test code=EO#) 0.00 x10 3/uL 0.0-0.2 BASOPHIL # (test code=BA#) 0.01 x10 3/uL 0.0-0.2 NUCLEATED RBC # (test code=NRBC#) 0.00 x10 3/uL 0.0-0.1 MANUAL DIFF REQUIRED (test code=MDIFF) NO - XR CHEST 1 [id number] 04:25:00 FAX: Ap Velez [phone] [place]: St: [facility] FAX: Franko Nieto MD [phone] FAX: Kelsey Moore MD [phone] Name: NICHOLAS VARGAS III [facility] : 1975 Age/S: 43/M [address] [place] [address] Unit #: [id number] Loc: [address] [place] [address] Phys: Kelsey Moore MD Acct: [id number] Dis Date: Status: ADM IN ONE #: [phone] Exam Date: 11/21/2018410 FAX #: [phone] Reason: Post intubation EXAMS: CPT CODE: [id number] XR CHEST 1 V 14891 EXAM: CR, XR chest one view: 11/21/2018, 0348 hours HISTORY: Post intubation TECHNIQUE: 1 view of the chest. COMPARISON: 0-2018, 0505 hours FINDINGS: Right IJ venous catheter and endotrac heal tube are stable. Nasogastric tube is withdrawn, tip at GE junction. Stable left chest tube, tip in the left apical chest. No radiographically apparent pneumothorax is seen. Mild atelectasis is seen in the left lung base. Cardiomediastinal silhouette and osseous structures are stable. Pulmonary vascularity is unremarkable. There is no pleural effusion. IMPRESSION: 1. Nasogastric tube is withdrawn, tip at GE junction. Right IJ venous catheter and endotracheal tube are stable. 2. Stable left chest tube. No radiographically apparent pneumo thorax. 3. Mild atelectasis left lung base. SL: [[id number]] at 6419 Reported and signed by: José Medley M.D. CC: Ap Allison MD; Franko Guido MD; Kelsey Moore MD Technologist: Cyrus Mack RT(R) Trnscrd Date/Time/By: (0425) : By: [email or web address] Orig Print D/T: S: 11/21/2018 (0424) PAGE 1 Signed Report ARTERIAL BLOOD [id number] 22:21:00* Test Item Value Reference Range Comments ARTERIAL BLOOD GAS PH (test code=PHA) 7.286 7.35-7.45 ARTERIAL BLOOD GAS PCO2 (test code=PCO2A) 54.6 mmHg 35-45 ARTERIAL BLOOD GAS PO2 (test code=PO2A) 107 mmHg 80-100 BICARBONATE TOTAL HCO3 (test code=HCO3) 26.1 mmol/L 22.0-26.0 BASE EXCESS (test code=REYNA) -1.0 mmol/L -4-4 ABG O2 SATURATION (test code=SATA) 97 % 90-100 FIO2 (test code=FIO2A) 50 % ABG DELIVERY (test code=MAGNOLIA) Bipap ABG VENT RESP RATE (test code=RRA) 14 /MIN Performed by certified marshmallow machine operator at [facility] ABG TEMPERATURE (test code=TEMPA) 98.0 F ABG SITE (test code=SITEA) Art line PREDICTED AA GRADIENT (test code=AP) 75 PREDICTED PO2 (test code=OP) 215 a/A RATIO (test code=RATIO) 0.37 TCO2 ARTERIAL (test code=TCO2A) 28 A-A GRADIENT (test code=AAGRADE) 184 ARTERIAL BLOOD [id number] 09:27:00* Test Item Value Reference Range Comments ARTERIAL BLOOD GAS PH (test code=PHA) 7.376 7.35-7.45 ARTERIAL BLOOD GAS PCO2 (test code=PCO2A) 47.9 mmHg 35-45 ARTERIAL BLOOD GAS PO2 (test code=PO2A) 106 mmHg 80-100 BICARBONATE TOTAL HCO3 (test code=HCO3) 28.0 mmol/L 22.0-26.0 BASE EXCESS (test code=REYNA) 3.0 mmol/L -4-4 ABG O2 SATURATION (test code=SATA) 98 % 90-100 FIO2 (test code=FIO2A) 40 % ABG DELIVERY (test code=MAGNOLIA) Vent ABG VENT MODE (test code=MODEA) PSV ABG PEEP (test code=PEEPA) 5 cmH2O ABG PRESSURE SUPPORT (test code=PSABG) 8 cmH2O Performed by certified marshmallow machine operator at [facility] ABG TEMPERATURE (test code=TEMPA) 98.6 F ABG SITE (test code=SITEA) Art line PREDICTED AA GRADIENT (test code=AP) 59 PREDICTED PO2 (test code=OP) 169 a/A RATIO (test code=RATIO) 0.47 TCO2 ARTERIAL (test code=TCO2A) 29 A-A GRADIENT (test code=AAGRADE) 122 - XR CHEST 1 [id number] 07:29:00 FAX: Ap Velez [phone] [place]: St: ADM FAX: Franko Nieto MD [phone] FAX: Torres Phelps MD [phone] Name: NICHOLAS VARGAS III [facility] : 1975 Age/S: 43/M [address] [place] [address] Unit #: [id number] Loc: [address] [place] [address] Phys: Torres Rubio MD Acct: [id number] Dis Date: Status: ADM IN ONE #: [phone] Exam Date: 11/20/2018515 FAX #: [phone] Reason: S/P Thoracotomy EXAMS: CPT CODE: [id number] XR CHEST 1 V 82736 Study: - XR C HEST 1 V 11/20/2018 5:00 AM Patient Name: NICHOLAS VARGAS III MR: [id number] : 1975; Age: 43 years y/o Male Ordering Physician: Corbin Rubio MD Clinical Indication: S/P Thoracotomy Comparison: November 19, 2018 x-ray FINDINGS LUNGS: The hyperinflated lungs are clear consolidation, pleural effusion, and def initive pneumothorax. Left chest tube. HEART AND MEDIASTINUM: Nor mal size heart. LINES: Endotracheal and nasogastric tube project i nto position.. OSSEOUS STRUCTURES: No fracture, dislocation, or renner spicious focal osseous lesion. OTHER: None. IMPRESSION: The previously seen left pneumothorax has largely resolved. Left chest tube in place. SL: [id number] at 0729 Reported and signed by: Dario zarate M.D. CC: Ap Allison MD; Franko Guido MD; Torres Rubio MD Tech nologist: Brittney Clark, RT(R); Cyrus Mack RT(R) Trnscrd Date/Ti me/By: 11/20/2018 (0729) : By: [email or web address] Orig Print D/T: S: 11/20/2018 (0796) PAGE 1 Signed Report CBC W/AUTO [id number] 06:56:00* Test Item Value Reference Range Comments WHITE BLOOD CELL (test code=WBC) 12.28 x10 3/uL 4.5-11.0 RED BLOOD CELL (test code=RBC) 2.66 x10 6/uL 4.00-5.60 HEMOGLOBIN (test code=HGB) 8.1 g/dL 12.5-16.9 HEMATOCRIT (test code=HCT) 26.9 % 37.5-50.7 MEAN CELL VOLUME (test code=MCV) 101.1 fL 81.0-99.0 MEAN CELL HGB (test code=MCH) 30.5 pg 27.0-33.0 MEAN CELL HGB CONCETRATION (test code=MCHC) 30.1 g/dL 33.0-37.0 RED CELL DISTRIBUTION WIDTH CV (test code=RDW) 13.0 % 11.5-14.5 RED CELL DISTRIBUTION WIDTH SD (test code=RDW-SD) 48.4 fL 37.0-54.0 PLATELET COUNT (test code=PLT) 238 x10 3/uL 150-400 MEAN PLATELET VOLUME (test code=MPV) 10.2 fL 7.0-9.0 NEUTROPHIL % (test code=NT%) 84.5 % 56.0-77.0 IMMATURE GRANULOCYTE % (test code=IG%) 0.5 % 0.0-2.0 LYMPHOCYTE % (test code=LY%) 7.9 % 14.0-32.0 MONOCYTE % (test code=MO%) 7.0 % 4.8-9.0 EOSINOPHIL % (test code=EO%) 0.0 % 0.3-3.7 BASOPHIL % (test code=BA%) 0.1 % 0.0-2.0 NUCLEATED RBC % (test code=NRBC%) 0.0 % 0-0 NEUTROPHIL # (test code=NT#) 10.38 x10 3/uL 2.0-7.6 IMMATURE GRANULOCYTE # (test code=IG#) 0.06 x10 3/uL 0.00-0.03 LYMPHOCYTE # (test code=LY#) 0.97 x10 3/uL 1.0-3.8 MONOCYTE # (test code=MO#) 0.86 x10 3/uL 0.1-0.8 EOSINOPHIL # (test code=EO#) 0.00 x10 3/uL 0.0-0.2 BASOPHIL # (test code=BA#) 0.01 x10 3/uL 0.0-0.2 NUCLEATED RBC # (test code=NRBC#) 0.00 x10 3/uL 0.0-0.1 MANUAL DIFF REQUIRED (test code=MDIFF) NO BASIC METABOLIC [id number] 06:54:00* Test Item Value Reference Range Comments SODIUM (test code=NA) 142 mEq/L 134-147 POTASSIUM (test code=K) 4.3 mEq/L 3.4-5.0 CHLORIDE (test code=CL) 108 mEq/L 100-108 CARBON DIOXIDE (test code=CO2) 30 mEq/L 21-33 ANION GAP (test code=GAP) 8 0-20 GLUCOSE (test code=GLU) 110 mg/dL 70-110 BLOOD UREA NITROGEN (test code=BUN) 15 mg/dL 7-18 GLOMERULAR FILTRATION RATE (test code=GFR) 629.3 95-105 Units of measure=ml/min/1.73 m2 CREATININE (test code=CREAT) 0.2 mg/dL 0.6-1.3 CALCIUM (test code=CA) 8.2 mg/dL 8.0-10.5 ARTERIAL BLOOD [id number] 05:23:00* Test Item Value Reference Range Comments ARTERIAL BLOOD GAS PH (test code=PHA) 7.350 7.35-7.45 ARTERIAL BLOOD GAS PCO2 (test code=PCO2A) 50.8 mmHg 35-45 ARTERIAL BLOOD GAS PO2 (test code=PO2A) 125 mmHg 80-100 BICARBONATE TOTAL HCO3 (test code=HCO3) 28.0 mmol/L 22.0-26.0 BASE EXCESS (test code=REYNA) 2.0 mmol/L -4-4 ABG O2 SATURATION (test code=SATA) 99 % 90-100 FIO2 (test code=FIO2A) 40 % ABG DELIVERY (test code=MAGNOLIA) Vent ABG VENT MODE (test code=MODEA) AC v con ABG VENT RESP RATE (test code=RRA) 14 /MIN ABG TIDAL VOLUME (test code=TVA) 350 ml ABG PEEP (test code=PEEPA) 5 cmH2O Performed by certified marshmallow machine operator at [facility] ABG TEMPERATURE (test code=TEMPA) 98.6 F ABG SITE (test code=SITEA) Art line PREDICTED AA GRADIENT (test code=AP) 58 PREDICTED PO2 (test code=OP) 166 a/A RATIO (test code=RATIO) 0.56 TCO2 ARTERIAL (test code=TCO2A) 30 A-A GRADIENT (test code=AAGRADE) 99 ARTERIAL BLOOD [id number] 04:24:00* Test Item Value Reference Range Comments ARTERIAL BLOOD GAS PH (test code=PHA) 7.350 7.35-7.45 ARTERIAL BLOOD GAS PCO2 (test code=PCO2A) 50.8 mmHg 35-45 ARTERIAL BLOOD GAS PO2 (test code=PO2A) 125 mmHg 80-100 BICARBONATE TOTAL HCO3 (test code=HCO3) 28.0 mmol/L 22.0-26.0 BASE EXCESS (test code=REYNA) 2.0 mmol/L -4-4 ABG O2 SATURATION (test code=SATA) 99 % 90-100 FIO2 (test code=FIO2A) 40 % ABG DELIVERY (test code=MAGNOLIA) VENTILATOR ABG VENT MODE (test code=MODEA) A/C ABG VENT RESP RATE (test code=RRA) 21 /MIN ABG TIDAL VOLUME (test code=TVA) 350 ml ABG PEEP (test code=PEEPA) 5 cmH2O ABG TEMPERATURE (test code=TEMPA) 98.6 F ABG SITE (test code=SITEA) ARTERIAL LINE PREDICTED AA GRADIENT (test code=AP) 58 PREDICTED PO2 (test code=OP) 166 a/A RATIO (test code=RATIO) 0.56 A-A GRADIENT (test code=AAGRADE) 99 - XR CHEST 1 [id number] 22:12:00 FAX: Ap Velez [phone] [place]: St: ADM FAX: Franko Nieto MD [phone] FAX: Chan Harden MD [phone] FAX: Torres Phelps MD [phone] Name: NICHOLAS VARGAS I II [facility]ly [facility] : 1975 Age/S: 43/M [address] [place] [address] Unit #: [id number] Loc: [address] [address] Phys: Chan Harden MD Acct: [id number] Dis Date: Status: ADM IN PHONE #: [phone] Exam D ate: 11/19/2018 2204 FAX #: [phone] Reason: V ERIFY ET TUBE PLACEMENT EXAMS: CPT CODE: [id number] XR CHEST 1 V 88325 SINGLE VIEW RADIOGRAPH CHEST I NDICATION: VERIFY ET TUBE PLACEMENT. PNEUMOTHORAX. TECHNIQUE: A single view frontal radiograph of the chest was obtained. COMPARIS ONS: Chest x-ray 11/19/2018, 11/18/2018 FINDINGS: Ther e is a mild complex thoracic spinal curvature. There is no acute osseous f racture or dislocation. There is a small amount of subcutaneous emphysema in the upper left chest wall adjacent to the axilla. There is no subdiaphragmatic free gas. There is a new enteric catheter that ter minates in the gastric fundus. There is a stable endotracheal tube that terminates 5.6 cm above the missy. The cardiomediastinal size and c ontour are normal. There is a stable left-sided thoracostomy tube with tip in the apex of the left hemithorax. There is an increased modera tely large left pneumothorax measuring up to 9.4 cm thick in the apex, jerome roximately 40-50 % of the hemithorax volume. The right lung is clear. Th ere is no pleural effusion. IMPRESSION: 1. There is a mildly increased left pneumothorax, approximately 40-50 % of the hemithorax volume. 2. There is a stable left-sided thoracosto my tube with tube tip in the left hemithorax apex. 3. There is no mediastinal shift or evidence of tension. 4. There is a new enteric catheter with tip in the gastric fundus. Electronically Si gned by Gretchen Prince on 11/19/2018 at 2212 Reported and signed by: Filipe Prince D.O. PAGE 1 Signed Report (CONTINUED) FAX: Ap Velez [phone] [place]: St: ADM FAX: Franko Nieto MD [phone] FAX: Chan Harden MD [phone] FAX: Torres Phelps MD [phone] Name: NICHOLAS VARGAS III [facility] : 1975 Age/S: 43 /M [address] [place] [address] Unit #: [id number] Loc: G[address] [place] [address] Phys: Chan Harden MD Acct: [id number] Dis Date: atus: ADM IN PHONE #: [phone] Exam Date : 11/19/2018 2204 FAX #: [phone] Reason: VERI FY ET TUBE PLACEMENT EXAMS: CPT CODE: [id number] XR CHEST 1 V 30871 <Continued> CC: Ap Allison MD; Franko Guido MD; Chan Harden MD; Torres Rubio MD Technologist: RT Alfred (R) Trnscrd Date/Time/By: 11/19/2018 (2211) : By: [email or web address] Orig Print D/T: S: 11/19/2018 (5227) PAGE 2 Signed Report - XR CHEST 1 [id number] 19:07:00 FAX: Ap Velez [phone] [place]: St: ADM FAX: Franko Nieto MD [phone] FAX: Torres Phelps MD [phone] Name: NICHOLAS VARGAS III [facility] : 1975 Age/S: 43/M [address] [place] [address] Unit #: [id number] Loc: G.M[address] [place] [address] Phys: Torres Rubio MD Acct: [id number] Dis Date: Status: ADM IN ONE #: [phone] Exam Date: 11/19/2018 1853 FAX #: [phone] Reason: S/P Thoracotomy EXAMS: CPT CODE: [id number] XR CHEST 1 V 66991 CHEST, SINGLE VIEW HISTORY: Left Pneumothorax. Postop thoracotomy Comparison made with multiple chest x-rays dating back to 11/16/18. FINDINGS: There is a staple line at the left apical lung cons istent with history. Interval placement of large-caliber left chest tube in adequate position. There is a left apical pneumothorax currently. No mediastinal shift. No significant pleural fluid. Endotracheal tube tip is at the mid tracheal level, adequate. IMPRESSION: 1. Despite adequate positioning of left chest tube, there is a left apical pneumothorax post thoracotomy. 2. Adequate end otracheal tube position. SL:01 Electronica lly Signed by Thalia Diamond on 11/19/2018 essence arcos 1906 Reported and signed by: Lucien andrews M.D. CC: Ap Allison MD; Franko Guido MD; Torres Rubio MD Technologist: Michelle Morales, RT(R)(M) Trnsc rd Date/Time/By: 11/19/2018 (1906) : By: Ryland Orig Print D/T: S: 11/19/2018 (984) PAGE 1 Signed R eport B-TYPE NATRIURETIC [id number] 12:16:00* Test Item Value Reference Range Comments B-TYPE NATRIURETIC PEPTIDE (test code=BNP) 3.9 PG/ML 0-100 CBC W/AUTO [id number] 11:19:00* Test Item Value Reference Range Comments WHITE BLOOD CELL (test code=WBC) 10.02 x10 3/uL 4.5-11.0 RED BLOOD CELL (test code=RBC) 3.31 x10 6/uL 4.00-5.60 HEMOGLOBIN (test code=HGB) 9.9 g/dL 12.5-16.9 HEMATOCRIT (test code=HCT) 33.9 % 37.5-50.7 MEAN CELL VOLUME (test code=MCV) 102.4 fL 81.0-99.0 MEAN CELL HGB (test code=MCH) 29.9 pg 27.0-33.0 MEAN CELL HGB CONCETRATION (test code=MCHC) 29.2 g/dL 33.0-37.0 RED CELL DISTRIBUTION WIDTH CV (test code=RDW) 12.9 % 11.5-14.5 RED CELL DISTRIBUTION WIDTH SD (test code=RDW-SD) 48.3 fL 37.0-54.0 PLATELET COUNT (test code=PLT) 281 x10 3/uL 150-400 MEAN PLATELET VOLUME (test code=MPV) 9.7 fL 7.0-9.0 NEUTROPHIL % (test code=NT%) 76.5 % 56.0-77.0 IMMATURE GRANULOCYTE % (test code=IG%) 0.4 % 0.0-2.0 LYMPHOCYTE % (test code=LY%) 10.8 % 14.0-32.0 MONOCYTE % (test code=MO%) 11.8 % 4.8-9.0 EOSINOPHIL % (test code=EO%) 0.4 % 0.3-3.7 BASOPHIL % (test code=BA%) 0.1 % 0.0-2.0 NUCLEATED RBC % (test code=NRBC%) 0.0 % 0-0 NEUTROPHIL # (test code=NT#) 7.67 x10 3/uL 2.0-7.6 IMMATURE GRANULOCYTE # (test code=IG#) 0.04 x10 3/uL 0.00-0.03 LYMPHOCYTE # (test code=LY#) 1.08 x10 3/uL 1.0-3.8 MONOCYTE # (test code=MO#) 1.18 x10 3/uL 0.1-0.8 EOSINOPHIL # (test code=EO#) 0.04 x10 3/uL 0.0-0.2 BASOPHIL # (test code=BA#) 0.01 x10 3/uL 0.0-0.2 NUCLEATED RBC # (test code=NRBC#) 0.00 x10 3/uL 0.0-0.1 MANUAL DIFF REQUIRED (test code=MDIFF) NO PROTHROMBIN [id number] 11:17:00* Test Item Value Reference Range Comments PROTHROMBIN TIME PATIENT (test code=PTP) 13.4 SECONDS 9.3-12.9 INTERNATIONAL NORMAL RATIO (test code=INR) 1.2 0.8-1.2 TARGET INR BY INDICATION Indication INR1. Prophylaxis of venous thrombosis 2.0 - 3.0 (orthopedic surgery), Prophylaxis of venous thrombosis (other than high-risk surgery), Treatment of Deep Vein Thrombosis/Pulmonary Embolism, Prevention of systemic embolism - Tissue heart valves, Acute Myocardial Infarction (to prevent systemic embolism), Valvular heart disease, Atrial Fibrillation, Bileaflet mechanical valve in aortic position.2. Mechanical prosthetic valves (high risk), 2.5 - 3.5 Presence of Lupus Anticoagulant or Antiphospholipid Antibodies, Prevention of systemic embolism - Acute Myocardial Infarction (to prevent recurrent infarct). THROMBOPLASTIN TIME [id number] 11:17:00* Test Item Value Reference Range Comments THROMBOPLASTIN TIME PARTIAL (test code=PTT) 29.5 Seconds 25.0-39.5 Therapeutic Range: 61.8-83.8 Sec Effective 11/06/2013 COMPREHENSIVE METABOLIC [id number] 11:15:00* Test Item Value Reference Range Comments SODIUM (test code=NA) 143 mEq/L 134-147 POTASSIUM (test code=K) 3.6 mEq/L 3.4-5.0 CHLORIDE (test code=CL) 107 mEq/L 100-108 CARBON DIOXIDE (test code=CO2) 34 mEq/L 21-33 ANION GAP (test code=GAP) 6 0-20 GLUCOSE (test code=GLU) 100 mg/dL 70-110 BLOOD UREA NITROGEN (test code=BUN) 11 mg/dL 7-18 GLOMERULAR FILTRATION RATE (test code=GFR) 394.1 95-105 Units of measure=ml/min/1.73 m2 CREATININE (test code=CREAT) 0.3 mg/dL 0.6-1.3 TOTAL PROTEIN (test code=PROT) 6.4 g/dL 6.4-8.2 ALBUMIN (test code=ALB) 2.80 g/dL 3.4-5.0 CALCIUM (test code=CA) 8.5 mg/dL 8.0-10.5 BILIRUBIN TOTAL (test code=BILT) 0.20 mg/dL 0.0-1.0 SGOT/AST (test code=AST) 12 IUnit/L 15-37 SGPT/ALT (test code=ALT) 26 IUnit/L 15-65 ALKALINE PHOSPHATASE TOTAL (test code=ALKP) 60 IUnit/L 20-125 [id number] 11:15:00* Test Item Value Reference Range Comments PHOSPHOROUS (test code=PHOS) 2.4 mg/dL 2.5-4.9 BILIRUBIN [id number] 11:15:00* Test Item Value Reference Range Comments BILIRUBIN DIRECT (test code=BILD) < 0.10 MG/DL 0.0-0.30 [id number] 11:15:00* Test Item Value Reference Range Comments MAGNESIUM (test code=MAG) 1.90 mg/dL 1.8-2.4 [id number] 11:15:00* Test Item Value Reference Range Comments TROPONIN-I (test code=TROPI) < 0.015 ng/mL 0.000-0.045 Negative: <=0.045 Positive: >=0.046 Correlation with serial results, other cardiac markers andclinical findings is necessary to determine the clinicalsignificance of this result. Results using different methodologies should not be comparedto one another as quantitative results may vary by method. CALCIUM [id number] 11:15:00* Test Item Value Reference Range Comments CALCIUM IONIZED (test code=LATONYA) 1.29 MMOL/L 1.12-1.32 LACTIC [id number] 11:06:00* Test Item Value Reference Range Comments LACTIC ACID (test code=LACT) 1.4 mmol/L 0.4-1.9 COMPREHENSIVE METABOLIC [id number] 10:55:00* Test Item Value Reference Range Comments SODIUM (test code=NA) mEq/L 134-147 POTASSIUM (test code=K) mEq/L 3.4-5.0 CHLORIDE (test code=CL) mEq/L 100-108 CARBON DIOXIDE (test code=CO2) mEq/L 21-33 ANION GAP (test code=GAP) 0-20 GLUCOSE (test code=GLU) mg/dL 70-110 BLOOD UREA NITROGEN (test code=BUN) mg/dL 7-18 GLOMERULAR FILTRATION RATE (test code=GFR) 95-105 CREATININE (test code=CREAT) mg/dL 0.6-1.3 TOTAL PROTEIN (test code=PROT) g/dL 6.4-8.2 ALBUMIN (test code=ALB) g/dL 3.4-5.0 CALCIUM (test code=CA) mg/dL 8.0-10.5 BILIRUBIN TOTAL (test code=BILT) mg/dL 0.0-1.0 SGOT/AST (test code=AST) IUnit/L 15-37 SGPT/ALT (test code=ALT) IUnit/L 15-65 ALKALINE PHOSPHATASE TOTAL (test code=ALKP) IUnit/L 20-125 [id number] 10:55:00* Test Item Value Reference Range Comments PHOSPHOROUS (test code=PHOS) mg/dL 2.5-4.9 BILIRUBIN [id number] 10:55:00* Test Item Value Reference Range Comments BILIRUBIN DIRECT (test code=BILD) MG/DL 0.0-0.30 [id number] 10:55:00* Test Item Value Reference Range Comments MAGNESIUM (test code=MAG) mg/dL 1.8-2.4 [id number] 10:55:00* Test Item Value Reference Range Comments TROPONIN-I (test code=TROPI) ng/mL 0.000-0.045 CALCIUM [id number] 10:55:00* Test Item Value Reference Range Comments CALCIUM IONIZED (test code=LATONYA) 1.29 MMOL/L 1.12-1.32 - XR CHEST 1 [id number] 10:38:00 FAX: Ap Velez [phone] [place]: St: ADM FAX: Franko Nieto MD [phone] FAX: Taj Burgess MD [phone] Name: NICHOLAS VARGAS III [facility] : 1975 Age/S: 43/M [address] [place] [address] Unit #: [id number] Loc: G.M328 [place] [address] Phys: Taj Burgess MD Acct: [id number] Dis Date: Status: ADM IN PH ONE #: [phone] Exam Date: 11/18/2018 1029 FAX #: [phone] Reason: TACHYPNEA, SHORTNESS OF BREATH EXAMS: CPT CODE: [id number] XR CHEST 1 V [id number] PROCEDURE: DIANA ST SINGLE VIEW 11/18/2018 1017 hours INDICATION: Decreased right br eath sounds COMPARISON: 11/18/2018 0517 hours FINDING S: The lungs are clear. The pleura, cardiomediastinal silhouette and bony thorax are normal. No vascular congestion is present. Left chest tube is stable. No pneumothorax is seen bilaterally. IMPRESSION: No acute cardiopulmonary process. SL: [id number] at 1038 Reported and si gned by: Tariq Hoffman M.D. CC: Ap Allison MD; Franko Guido MD; Taj Burgess MD Technologist: RT Francis(R) Trnscrd Date/Time/By: 11/18/2018 (1038) : By: [email or web address] Orig Print D/T: S: 11/18/2018 (3737) PAGE 1 Signed Report - XR CHEST 1 V 2018-11-18 08:49:00 FAX: Ap Velez [phone] [place]: St: ADM FAX: Franko Nieto MD [phone] FAX: Rocco Guerrero [phone] Name: NICHOLAS VARGAS III [facility] : 1975 Age/S: 43/M [address] [place] [address] Unit #: [id number] Loc: G.M[address] [place] [address] Phys: Rocco Gregory MD Acct: [id number] Dis Date: Status: ADM IN PH ONE #: [phone] Exam Date: 11/18/2018 0545 FAX #: [phone] Reason: FOLLOWUP, RECURRENT PNEUMOTHORAX EXAMS: CPT CODE: [id number] XR CHEST 1 V 64862 Chest single v iew 11/18/2018 HISTORY: Recurrent pneumothorax follow-up Comparison is made to 11/17/2018 FINDINGS: Left chest tube is in stable position. No pneumothorax is currently identified. No consolidat ion or pleural effusion is present. Heart size is normal. Aorta is unrem arkable. No significant vascular congestion or interstitial edema is pres ent. IMPRESSION: 1. No pneumothorax currently identifie d. 2. Stable position of left chest tube. SL: [id number] at 0849 Reported and signed by: Tariq Hoffman M.D. CC: Ap Allison MD; Franko Guido MD; Rocco Gregory MD Technologist: Yasmine Avendano RT( R) Trnscrd Date/Time/By: 11/18/2018 (0895) : By: [email or web address] Orig Print D/T: S: 11/18/2018 (0852) PAGE 1 Signed Report [id number] 05:35:00* Test Item Value Reference Range Comments GLUBED (test code=GLUBED) 80 MG/DL 70-110 Performed by certified marshmallow machine operator at [facility] [id number] 05:18:00* Test Item Value Reference Range Comments GLUBED (test code=GLUBED) 117 mg/dL 70-110 [id number] 05:18:00* Test Item Value Reference Range Comments GLUBED (test code=GLUBED) 97 mg/dL 70-110 [id number] 23:57:00* Test Item Value Reference Range Comments GLUBED (test code=GLUBED) 87 mg/dL 70-110 [id number] 23:57:00* Test Item Value Reference Range Comments GLUBED (test code=GLUBED) 55 mg/dL 70-110 [id number] 23:57:00* Test Item Value Reference Range Comments GLUBED (test code=GLUBED) 85 mg/dL 70-110 - XR CHEST 1 [id number] 12:37:00 FAX: Ap Velez [phone] [place]: St: ADM FAX: Franko Nieto MD [phone] FAX: Rocco Guerrero [phone] Name: NICHOLAS VARGAS III [facility] : 1975 Age/S: 43/M [address] [facility] Unit #: [id number] Loc: E.IC06 [place], [place]: [place] [address] Acct: [id number] Dis Date: Status: ADM IN [facility] #: [phone] Exam Date: 11/17/2018 1237 FAX #: [phone] Reason: Pneumothorax, small chest tube in place. EXAMS: CPT CODE: [id number] XR CHEST 1 V 52308 Chest Radiogra ph History: Pneumothorax, small chest tube in place. Comparison: November 16, 2018 Location: R16 A single frontal view of the chest is submitted. The heart appears unchan ged in size. Pulmonary vasculature is unremarkable. The visualize d lung marcum appear to be free of disease. No pneumothorax is identified. A left-sided chest tube is again identified. The bones appear unch anged. IMPRESSION: No pneumoth orax is identified on today's study. Electronical ly Signed by Thalia Goldberg on 11/17/2018 at 2435 Reported and signed by: Larry taylor M.D. CC: Ap Allison MD; Franko Guido MD; Rocco Gregory MD Techn ologist: KERON WAGGONER [facility] Date/Jose R e/By: 11/17/2018 (3207) : By: RivkaPMT PAGE 1 Signed Report FAX: Ap Velez [phone] [place]: St: ADM FAX: Franko Neito MD [phone] FAX: Rocco Guerrero [phone] Name: NICHOLAS VARGAS III [facility] : 1975 Age/S: 43/M [address] [place] [facility] Unit #: [id number] Loc: E.IC06 [place], [place]: [place] [address] Acct: [id number] Dis Date: tus: ADM IN PHONE #: [phone] Exam Date: 11/17/2018 1237 FAX #: [phone] Reason: Pneum othorax, small chest tube in place. EXAMS: CPT CODE: [id number] XR CHEST 1 V 18723 <Continued> Orig Print D/T: S: 11/17/2018 (0010) PAGE 2 Signed Report - XR CHEST 1 [id number] 18:46:00 FAX: Ap Velez [phone] [place]: St: ADM FAX: Franko Nieto MD [phone] FAX: Rocco Guerrero [phone] Name: NICHOLAS VARGAS III [facility] : 1975 Age/S: 43/M [address] [facility] Unit #: [id number] Loc: E.IC06 [place], [place]: [place] [address] Acct: [id number] Dis Date: Status: ADM IN [facility] #: [phone] Exam Date: 11/16/2018 1816 FAX #: [phone] Reason: Resp. distress, pneumothorax tube flushed with EXAMS: CPT CODE: [id number] XR CHEST 1 V 75046 C3 TIME OF STUDY: 11/16/2018 5:08 PM REASON FOR EXAM: Resp. distress, pneumothorax tube flushed with improved COMPARI SON: Chest radiograph on the same date FINDINGS: AP view of the chest was obtained. Support devices: Stable left chest tube. Lungs: Normal lung volume. No mass, or consolidation. Normal pulmonary vascularity. Pleura: No pleural effusion. Trace left pneum othorax. Heart and Mediastinum: Normal cardiomediastinal silhouett e and great vessels. Bones: Normal regional skeletal structu res. IMPRESSION: 1. Stable trace left pneumoth orax. at 1846 Reported and signed by: Ozzie Garcia M.D. CC: Ap Allison MD; Franko Guido MD; Rocco Gregory MD Technologist: CHAD AWAN Trnscrd Date/Time/By: 11/16/2018 (4529) : By: [email or web address] PAGE 1 Signed Report FAX: Ap Velez [phone] [place]: St: ADM FAX: Franko Nieto MD [phone] FAX: Rocco Guerrero [phone] Name: NICHOLAS VARGAS III [facility] : 1975 Age/S: 43/M [address] [facility] Unit #: [id number] Loc: E.IC06 [place], [place]: [place] [address] Acct: [id number] Dis Date: Status: ADM IN PHONE #: [phone] Exam Date: 11/16/2018 181 FAX #: [phone] Reason: Resp. distress, pneumo thorax tube flushed with EXAMS: CPT CODE: [id number] XR CHEST 1 V 60568 <Continued> Orig Print D/T: S: 11/16/2018 (9123) PAGE 2 Signed Report COMPREHENSIVE METABOLIC [id number] 16:07:00* Test Item Value Reference Range Comments SODIUM (test code=NA) 143 mmol/l 134.0-147.0 POTASSIUM (test code=K) 4.1 mmol/L 3.6-5.2 CHLORIDE (test code=CL) 102 mmol/l 98.0-107.0 CARBON DIOXIDE (test code=CO2) 37.4 mmol/l 21.0-33.0 ANION GAP (test code=GAP) 7.7 0-20 GLUCOSE (test code=GLU) 128 mg/dl 70.0-110.0 BLOOD UREA NITROGEN (test code=BUN) 22 mg/dl 7.0-18.0 CREATININE (test code=CREAT) 0.51 mg/dL 0.60-1.30 GFR NON BLACK (test code=GFRNONBLACK) 187 mL/min 95-105 GFR BLACK (test code=GFRBLACK) 227 mL/min 115-127 TOTAL PROTEIN (test code=PROT) 7.3 gm/dL 6.4-8.2 ALBUMIN (test code=ALB) 3.2 gm/dl 3.2-4.7 CALCIUM (test code=CA) 9.8 mg/dl 8.0-10.5 BILIRUBIN TOTAL (test code=BILT) 0.2 mg/dl 0.0-1.0 SGOT/AST (test code=AST) 12 Units/L 15.0-37.0 SGPT/ALT (test code=ALT) 28 Units/L 12.0-78.0 ALKALINE PHOSPHATASE TOTAL (test code=ALKP) 63 Units/L 50.0-136.0 [id number] 16:07:00* Test Item Value Reference Range Comments MAGNESIUM (test code=MAG) 1.7 mg/dl 1.8-2.4 - XR CHEST 1 [id number] 16:05:00 FAX: Ap Velez [phone] [place]: St: [facility] FAX: Franko Nieto MD [phone] Name: NICHOLAS VARGAS III [facility] : 1975 Age/S: 43/M [address] [facility] Unit #: [id number] Loc: [address] Phys: [place] [address] Acct: [id number] Dis Date: Status: ADM IN PHONE #: [phone] Exam Date: 11/16/2018 1556 FAX #: [phone] Reason: SOB EXAMS: CPT CODE: [id number] XR CHEST 1 V 29752 Chest Radiograph History: SOB Comparison: November 15, 2017 Location: R16 A single frontal view of the chest is submitted. The heart appears unchanged in size. Pulmonary vasculature is unremarkable. There is a small left pneumothorax. A left-sided chest tube is again identified. The bones appear unchanged. IMPRESSION: There is a small left pneumothorax. at 7872 Reported and signed by: Larry Leija M.D. CC: Ap Allison MD; Franko Guido MD Technologist: CHAD AWAN [facility] e/Time/By: 11/16/2018 (8422) : By: RivkaPMT PAGE 1 Signed Report FAX: Ap Velez [phone] [place]: St: ADM FAX: Franko Nieto MD Name: NICHOLAS VARGAS III [facility] : 1975 Age/S: 43/M [address] [facility] nit #: [id number] Loc: [address] [place] [address] Phys: [place] [address] Acct: [id number] Dis Date: Status: ADM IN P [place] #: [phone] Exam Date: 11/16/2018 1556 FA X #: [phone] Reason: SOB EXAMS: CPT CODE: [id number] XR CHEST 1 V 93389 <Continued> Orig Print D/T: S: 11/16/2018 (9434) PAGE 2 Signed Report PROTHROMBIN [id number] 16:01:00* Test Item Value Reference Range Comments PROTHROMBIN TIME PATIENT (test code=PTP) 13.4 SECONDS 9.9-12.8 INTERNATIONAL NORMAL RATIO (test code=INR) 1.1 0.89-1.14 THE INR IS TO BE USED ONLY FOR MONITORING ORAL ANTICOAGULANTTHERAPY. THE FOLLOWING ARE SUGGESTED RANGES FROM THEAMERICAN COLLEGE OF CHEST PHYSICIANS:INDICATION INR VALUEPROPHYLAXIS OF VENOUS THROMBOSIS (ORTHOPEDIC SURGERY) 2.0 - 3.0PROPHYLAXIS OF VENOUS THROMBOSIS (OTHER THAN HIGH-RISK SURGERY) 2.0 - 3.0TREATMENT OF DEEP VEIN THROMBOSIS OR PULMONARY EMBOLISM 2.0 - 3.0PREVENTION OF SYSTEMIC EMBOLISM TISSUE HEART VALVES 2.0 - 3.0 ACUTE MYOCARDIAL INFARCTION (TO PREVENT SYSTEMIC EMBOLISM) 2.0 - 3.0 ACUTE MYOCARDIAL INFARCTION (TO PREVENT RECURRENT INFARCT) 2.5 - 3.0 VALVULAR HEART DISEASE 2.0 - 3.0 ATRIAL FIBRILATION 2.0 - 3.0BILEAFLET MECHANICAL VALVE IN AORTIC POSITION 2.0 - 3.0MECHANICAL PROSTHETIC VALVES (HIGH RISK) 2.5 - 3.5PRESENCE OF LUPUS ANTICOAGULANT OR ANTIPHOSPHOLIPID ANTIBODIES 2.5 - 3.5 Is patient on anticoagulants? NTHROMBOPLASTIN TIME [id number] 16:01:00* Test Item Value Reference Range Comments THROMBOPLASTIN TIME PARTIAL (test code=PTT) 28.60 SECONDS 25.86-36.07 [facility] Therapeutic Range - APTT of 55.8-85.4 secondscorrelates with plasma heparin concentration of 0.2-0.4 u/mL New range effective - 12/04/2016 Is patient on anticoagulants? NCOMPREHENSIVE METABOLIC [id number] 16:00:00 * Test Item Value Reference Range Comments SODIUM (test code=NA) 143 mmol/l 134.0-147.0 POTASSIUM (test code=K) 4.1 mmol/L 3.6-5.2 CHLORIDE (test code=CL) 102 mmol/l 98.0-107.0 CARBON DIOXIDE (test code=CO2) 37.4 mmol/l 21.0-33.0 ANION GAP (test code=GAP) 7.7 0-20 GLUCOSE (test code=GLU) mg/dl 70.0-110.0 BLOOD UREA NITROGEN (test code=BUN) mg/dl 7.0-18.0 CREATININE (test code=CREAT) mg/dL 0.60-1.30 GFR NON BLACK (test code=GFRNONBLACK) mL/min 95-105 GFR BLACK (test code=GFRBLACK) mL/min 115-127 TOTAL PROTEIN (test code=PROT) gm/dL 6.4-8.2 ALBUMIN (test code=ALB) gm/dl 3.2-4.7 CALCIUM (test code=CA) mg/dl 8.0-10.5 BILIRUBIN TOTAL (test code=BILT) mg/dl 0.0-1.0 SGOT/AST (test code=AST) Units/L 15.0-37.0 SGPT/ALT (test code=ALT) Units/L 12.0-78.0 ALKALINE PHOSPHATASE TOTAL (test code=ALKP) Units/L 50.0-136.0 [id number] 16:00:00* Test Item Value Reference Range Comments MAGNESIUM (test code=MAG) mg/dl 1.8-2.4 ARTERIAL BLOOD [id number] 15:58:00* Test Item Value Reference Range Comments ARTERIAL BLOOD GAS PH (test code=PHA) 7.348 7.350-7.450 ARTERIAL BLOOD GAS PCO2 (test code=PCO2A) 56.5 mmHg 35.0-45.0 ARTERIAL BLOOD GAS PO2 (test code=PO2A) 389.2 mmHg >80.0 BICARBONATE TOTAL HCO3 (test code=HCO3) 30.4 MMOL/L 22.0-26.0 BASE EXCESS (test code=REYNA) 3.5 MMOL/L -4.0-4.0 ABG O2 SATURATION (test code=SATA) 99.7 % 92.0-99.0 FIO2 (test code=FIO2A) 100.0 ABG SITE (test code=SITEA) RR ALLENS TEST (test code=ALLENS) Yes TOTAL HGB (test code=THB) 12.3 g/dL 12.0-16.0 CARBOXYHEMOGLOBIN (test code=HOHGBT) 0.4 % THgb 0.0-1.5 METHEMOGLOBIN (test code=METHGB) 0.5 % 0.0-1.5 NORMAL <2.0POTENTIALLY TOXIC >20.0 CBC W/AUTO [id number] 15:54:00* Test Item Value Reference Range Comments WHITE BLOOD CELL (test code=WBC) 10.9 K/mm3 4.5-11.0 RED BLOOD CELL (test code=RBC) 3.82 M/mm3 4.40-5.90 HEMOGLOBIN (test code=HGB) 11.3 gm/dL 13.0-17.0 HEMATOCRIT (test code=HCT) 37.6 % 36.0-48.0 MEAN CELL VOLUME (test code=MCV) 98.4 UM3 80.0-94.0 MEAN CELL HGB (test code=MCH) 29.6 UUG 25.5-32.5 MEAN CELL HGB CONCETRATION (test code=MCHC) 30.1 gm/dL 29.0-35.5 RED CELL DISTRIBUTION WIDTH (test code=RDW) 12.7 % 11.5-15.0 PLATELET COUNT (test code=PLT) 254 K/mm3 150-400 MEAN PLATELET VOLUME (test code=MPV) 9.2 fl 7.4-10.4 NEUTROPHIL % (test code=NT%) 78.2 % 49.0-76.0 LYMPHOCYTE % (test code=LY%) 10.9 % 23.0-38.0 MONOCYTE % (test code=MO%) 9.0 % 1.0-10.0 EOSINOPHIL % (test code=EO%) 1.2 % 1.0-5.0 BASOPHIL % (test code=BA%) 0.1 % 0.0-1.0 NEUTROPHIL # (test code=NT#) 8.5 K/mm3 2.4-6.3 LYMPHOCYTE # (test code=LY#) 1.2 K/mm3 1.2-4.0 MONOCYTE # (test code=MO#) 1.0 K/mm3 0.0-0.6 EOSINOPHIL # (test code=EO#) 0.1 K/MM3 0.0-0.7 BASOPHIL # (test code=BA#) 0.0 K/mm3 0.0-0.2 [id number] 15:28:00* Test Item Value Reference Range Comments GLUBED (test code=GLUBED) 130 mg/dL 70-110 [id number] 11:49:00* Test Item Value Reference Range Comments GLUBED (test code=GLUBED) 88 mg/dL 70-110 [id number] 11:49:00* Test Item Value Reference Range Comments GLUBED (test code=GLUBED) 30 mg/dL 70-110 [id number] 19:43:00* Test Item Value Reference Range Comments GLUBED (test code=GLUBED) 115 mg/dL 70-110 [id number] 19:42:00* Test Item Value Reference Range Comments GLUBED (test code=GLUBED) 88 mg/dL 70-110 [id number] 19:42:00* Test Item Value Reference Range Comments GLUBED (test code=GLUBED) 91 mg/dL 70-110 [id number] 19:42:00* Test Item Value Reference Range Comments GLUBED (test code=GLUBED) 68 mg/dL 70-110 [id number] 19:42:00* Test Item Value Reference Range Comments GLUBED (test code=GLUBED) 88 mg/dL 70-110 [id number] 19:42:00* Test Item Value Reference Range Comments GLUBED (test code=GLUBED) 106 mg/dL 70-110 [id number] 19:42:00* Test Item Value Reference Range Comments GLUBED (test code=GLUBED) 83 mg/dL 70-110 - XR CHEST 1 [id number] 17:10:00 FAX: Ap Velez [phone] [place]: St: [facility] FAX: Franko Nieto MD [phone] FAX: Rocco Guerrero [phone] Name: NICHOLAS VARGAS III [facility] : 1975 Age/S: 43/M [address] [facility] #: [id number] Loc: E.[address] [place], [place]: [place] [address] Acct: [id number] Dis Date: Status: ADM IN ONE #: [phone] Exam Date: 11/15/2018 1705 FAX #: [phone] Reason: Chest tube EXAMS: CPT CODE: [id number] XR CHEST 1 V 06181 AP VIEW OF THE CHEST LOCATION: B2 CLINICAL HISTORY: Chest t ube placement. COMPARISON: Chest radiograph one hour earlier . FINDINGS: Compared to the previous exam one hour earlier , a new left thoracostomy tube has been placed, with the tip projecting ov er the left upper lung. The previously seen left pneumothorax has resolve d. The bilateral lungs are grossly clear. No appreciable pleural fluids. No acute bony abnormality is found. IMPRESSION: Interval placement of left thoracostomy tube, with interval reduction of left pneumothorax. Electronically Signed by Thalia Landeros on 04/2019 at 8534 Reported and signed by: Uma Gustafson CC: Ap Allison MD; Franko Guido MD; Rocco tee MD Technologist: AKOSUA EGAN [facility] e/Time/By: 11/15/2018 (3793) : By: Inocencia.JSL PAGE 1 Signed Report FAX: Ap Velez [phone] [place]: St: ADM FAX: Franko Nieto MD FAX: Rocco Guerrero [phone] Name: NICHOLAS VARGAS III [facility] : 1975 Age/S : 43/M [address] [facility] Unit #: [id number] Loc: E[address] [place], [place]: [place] [address] Acct: [id number] Dis Date: Status: ADM IN PHONE #: [phone] Exam Date: 11/15/2018 1705 FAX #: [phone] Reason: Chest tube EXAMS: CPT CODE: [id number] XR CHEST 1 V 91963 <Continued> Orig Print D/T: S: 11/15/2018 (7952) PAGE 2 Signed Report - XR CHEST 1 [id number] 16:36:00 FAX: Ap Velez [phone] [place]: St: ADM FAX: Franko Nieto MD [phone] FAX: Whitley Araya FN [phone] Name: NICHOLAS VARGAS III [facility] : 1975 Age/S: 43/M [address] [facility] Unit #: [id number] Loc: [address] [place] [address] Phys: Whitley Araya [facility] [address] Acct: [id number] Dis Date: Status: ADM IN PH ONE #: [phone] Exam Date: 11/15/2018 1610 FAX #: [phone] Reason: sob EXAMS: CPT CODE: [id number] XR CHEST 1 V 69936 AP VIEW OF THE CHEST LOCATION: B2 CLINICAL HISTORY: Shortne ss of breath. COMPARISON: Chest radiograph 11/14/2018. FINDINGS: Compared to the previous exam one day earlier, the le ft thoracostomy tube has been removed. There has been interval developmen t of left pneumothorax, estimated to be less than 20%. The cardiomediasti nal shadow is within normal limits. The lungs are otherwise grossly clear. No appreciable pleural fluids. No acute bony abnormality is foun d. IMPRESSION: Interval removal of left thoracostomy tub e, with interval development of left pneumothorax, estimated to be less than 20%. at 3757 Reported and signed by: Dolores Landeros M.D. CC: Ap Allison MD; Franko Guido MD; Whitley Araya Technologist: AKOSUA EGAN [facility] Date/Time/By: 11/15/2018 (8868) : By: Fercho PAGE 1 Roz d Report FAX: Ap Velez [place]: St: ADM FAX: Franko Nieto MD [phone] FAX: Whitley Araya [phone] Name: NICHOLAS VARGAS III [facility] : 1975 Age/S: 43/M [address] [facility] Unit #: [id number] Loc: [address] Phys: Whitley ArayaP [address] Acct: [id number] Dis Date: Status: A DM IN PHONE #: [phone] Exam Date: 0 11/15/2018 1610 FAX #: [phone] Reason: sob EXAMS: CPT CODE: [id number] XR CHEST 1 V 49511 <Continued> Orig Print D/T: S: 11/15/2018 (4412) PAGE 2 Signed Report BASIC METABOLIC [id number] 08:24:00* Test Item Value Reference Range Comments SODIUM (test code=NA) 139 mmol/l 134.0-147.0 POTASSIUM (test code=K) 4.8 mmol/L 3.6-5.2 CHLORIDE (test code=CL) 98 mmol/l 98.0-107.0 CARBON DIOXIDE (test code=CO2) 32.4 mmol/l 21.0-33.0 ANION GAP (test code=GAP) 13.4 0-20 GLUCOSE (test code=GLU) 79 mg/dl 70.0-110.0 BLOOD UREA NITROGEN (test code=BUN) 19 mg/dl 7.0-18.0 CREATININE (test code=CREAT) 0.36 mg/dL 0.60-1.30 GFR NON BLACK (test code=GFRNONBLACK) 280 mL/min 95-105 GFR BLACK (test code=GFRBLACK) 339 mL/min 115-127 CALCIUM (test code=CA) 10.8 mg/dl 8.0-10.5 CBC W/AUTO [id number] 07:47:00* Test Item Value Reference Range Comments WHITE BLOOD CELL (test code=WBC) 12.1 K/mm3 4.5-11.0 RED BLOOD CELL (test code=RBC) 4.28 M/mm3 4.40-5.90 HEMOGLOBIN (test code=HGB) 12.5 gm/dL 13.0-17.0 HEMATOCRIT (test code=HCT) 42.0 % 36.0-48.0 MEAN CELL VOLUME (test code=MCV) 98.1 UM3 80.0-94.0 MEAN CELL HGB (test code=MCH) 29.2 UUG 25.5-32.5 MEAN CELL HGB CONCETRATION (test code=MCHC) 29.8 gm/dL 29.0-35.5 RED CELL DISTRIBUTION WIDTH (test code=RDW) 13.1 % 11.5-15.0 PLATELET COUNT (test code=PLT) 286 K/mm3 150-400 MEAN PLATELET VOLUME (test code=MPV) 9.8 fl 7.4-10.4 NEUTROPHIL % (test code=NT%) 82.1 % 49.0-76.0 LYMPHOCYTE % (test code=LY%) 10.6 % 23.0-38.0 MONOCYTE % (test code=MO%) 6.2 % 1.0-10.0 EOSINOPHIL % (test code=EO%) 0.4 % 1.0-5.0 BASOPHIL % (test code=BA%) 0.2 % 0.0-1.0 NEUTROPHIL # (test code=NT#) 10.0 K/mm3 2.4-6.3 LYMPHOCYTE # (test code=LY#) 1.3 K/mm3 1.2-4.0 MONOCYTE # (test code=MO#) 0.8 K/mm3 0.0-0.6 EOSINOPHIL # (test code=EO#) 0.1 K/MM3 0.0-0.7 BASOPHIL # (test code=BA#) 0.0 K/mm3 0.0-0.2 - XR CHEST 1 [id number] 08:33:00 FAX: Ap Velez [phone] [place]: St: ADM FAX: Franko Nieto MD [phone] FAX: Whitley Araya [phone] Name: NICHOLAS VARGAS ESTEBAN [facility] : 1975 Age/S: 43/M [address] [facility] Unit #: [id number] Loc: [address] Phys: Whitley Araya [employer] [address] Acct: [id number] Dis Date: Status: ADM IN PH ONE #: [phone] Exam Date: 11/14/2018817 FAX #: [phone] Reason: SOB EXAMS: CPT CODE: [id number] XR CHEST 1 V 99941 Chest Radiogra ph History: SOB Comparison: November 13, 2018 Location: R16 A single frontal view of the chest is submitt ed. The heart appears unchanged in size. Pulmonary vascula ture is unremarkable. The visualized lung marcum appear to be free of di sease. A left-sided pigtail chest tube is again identified. No pneumothor ax is identified. The bones appear unchanged. IMPRESSION: There is no radiographic evidence of acu te cardiopulmonary disease. Compared to the prior exam, there has been no significant change. at 0833 Reported and signed by: Larry Goldberg M.D. CC: Ap Allison MD; Franko Guido MD; Whitley Araya Technologist: AKOSUA EGAN Trntnrd Date/Time/By: 11/14/2018 (0833) : By: Pooja PAGE 1 Signed Report FAX: Ap Velez [phone] [place]: St: ADM FAX: Franko Nieto MD [phone] FAX: Whitley Lenz [phone] Name: NICHOLAS VARGAS III [facility] : 1975 Age/S: 43/M [address] [facility] Unit #: [id number] Loc: [address] Phys: Whitley ArayaP [address] Acct: [id number] Dis Date: Status: ADM IN PHONE #: [phone] Exam Date: 11/14/2018 0818 FAX #: [phone] Reason: SOB EXAMS: CPT CODE: [id number] XR CHEST 1 V 76361 < Continued> Orig Print D/T: S: 11/14/2018 (0836) PAGE 2 Signed Report - XR CHEST 1 [id number] 18:59:00 FAX: Ap Velez [phone] [place]: St: ADM FAX: Franko Nieto MD [phone] FAX: Whitley Araya FN --------- Name: NICHOLAS VARGAS III [facility] : 1975 Age/S: 43/M [address] [facility] #: [id number] Loc: [address] [place], [place] Phys: Whitley ArayaP [address] Acct: [id number] Dis Date: Status: ADM IN PH ONE #: [phone] Exam Date: 11/13/2018 1849 FAX #: [phone] Reason: SOB EXAMS: CPT CODE: [id number] XR CHEST 1 V 36363 Chest Radiogra ph History: SOB Comparison: November 11, 2018 Location: R16 A single frontal view of the chest is submitt ed. The heart appears unchanged in size. Pulmonary vascula ture is unremarkable. The visualized lung marcum appear to be free of di sease. A left-sided pigtail chest tube is again identified. No pneumothor ax is identified. The bones appear unchanged. IMPRESSION: There is no radiographic evidence of acu te cardiopulmonary disease. at 1859 Reported and signed by: Larry Goldberg M.D. CC: Ap Allison MD; Franko Guido MD; Whitley Araya Technologist: SHEA PEÑA Trnscrd Date/Time/By: 02/2019 (1858) : By: RivkaPMT PAGE 1 Signed R eport FAX: Ap Velez [phone] [place]: St: ADM FAX: Franko Nieto MD [phone] FA X: Whitley Araya [phone] Name: NICHOLAS VARGAS III [facility] : 1975 Age/S: 43/M [address] [employer] Unit #: [id number] Loc: [address] [place], [place] Phys: MarshalWhitley Isrrael [employer] [address] Acct: [id number] Dis Date: Status: ADM IN PHONE #: [phone] Exam Date: 02/2019 1849 FAX #: [phone] Reason: SOB EXAMS: CPT CODE: [id number] XR CHEST 1 V 71 045 <Continued> Orig Print D/T: S: 11/13/2018 (219) PAGE 2 Signed Report [id number] 11:03:00* Test Item Value Reference Range Comments GLUBED (test code=GLUBED) 131 mg/dL 70-110 - CT CHEST W/O [id number] 09:06:00 FAX: Ap Velez [phone] [place]: St: ADM FAX: Rickey Kaminski MD [phone] FAX: Franko Nieto MD [phone] Name: NICHOLAS VARGAS III [facility] : 1975 Age/S: 43/M [address] [employer] Unit: [id number] Loc: [address] [place], [place]: [place] [address] Acct: [id number] Dis Date: Status: ADM IN PHONE #: [phone] Exam Date: 11/13/2018 0851 FAX #: [phone] Reason: persistent ptx EXAMS: CPT CODE: [id number] CT CHEST W/O CONTRAST 34138 HISTORY: Pneu mothorax, chest tube. CT chest, unenhanced. Reformatted sagittal a nd coronal images. Automated exposure control, iterative reconstru ction technique, and/or adjustment of mA and/or kV according to patient's size was utilized for optimum radiation dose reduction. No intravenous contrast is requested for the exam. Significant pathology may be obscured. The lung window settings shows small diameter chest tube in the right upper pleural space with no documented pneumothorax pres ent. Apical bulla found bilaterally. The lung bases appear to be clear o f infiltrates some minimal basilar scarring on the right but no pneu mothorax. Bulla at the anterior medial right middle lobe area. So ft tissue window settings show sparse body fat. Aortic diameter normal. No calcifications of the aorta seen. AP diameter narrowing of the chest o ccurs, pectus deformity. The heart appears to be flattened between the st ernum and the spine, slightly. AP diameter at 6.8 cm. No pleural effusio n. Tiny amount of air at the edwige hepatis region likely some pneumobilia. IMPRESSION: Hyperinflated lung pattern with COPD suggested. No infiltrates. Small diameter chest tube in the upper anterior left upper pleural space with no pneumothorax seen . Location: U19 at 0906 Reported and signed by: Chang Deluca M.D. PAGE 1 Signed Report (CONTINUED) FAX: Ap Velez [phone] [place]: St: [facility] FAX: Rickey Kaminski MD [phone] FAX: Franko Nieto MD [phone] Name: NICHOLAS VARGAS III [facility] : 1975 Age/S: 43/M [address] [facility] Unit: [id number] Loc: [address] Phys: [place] [address] Acct: [id number] Dis Date: Status: ADM IN PHONE #: [phone] Exam Date: 11/13/2018 0851 FAX #: [phone] Reason: persistent ptx EXAMS: CPT CODE: [id number] CT CHEST W/O CONTRAST 48970 <Continued> CC: Ap Allison MD; Rickey Morfin MD; Franko Guido MD Technologist: SARITHA KIDD; ANGIE POLLARD Trnscrd Dt/Tm: 11/13/2018 (905) tALONDRAM Orig Print D/T: S: 11/13/2018 (09 PAGE 2 Signed Report GLUBED 2018-11-13 08:36:00* Test Item Value Reference Range Comments GLUBED (test code=GLUBED) 126 mg/dL 70-110 COMPREHENSIVE METABOLIC [id number] 07:34:00* Test Item Value Reference Range Comments SODIUM (test code=NA) 142 mmol/l 134.0-147.0 POTASSIUM (test code=K) 4.4 mmol/L 3.6-5.2 CHLORIDE (test code=CL) 102 mmol/l 98.0-107.0 CARBON DIOXIDE (test code=CO2) 37.4 mmol/l 21.0-33.0 ANION GAP (test code=GAP) 7.0 0-20 GLUCOSE (test code=GLU) 108 mg/dl 70.0-110.0 BLOOD UREA NITROGEN (test code=BUN) 17 mg/dl 7.0-18.0 CREATININE (test code=CREAT) 0.51 mg/dL 0.60-1.30 GFR NON BLACK (test code=GFRNONBLACK) 187 mL/min 95-105 GFR BLACK (test code=GFRBLACK) 227 mL/min 115-127 TOTAL PROTEIN (test code=PROT) 7.3 gm/dL 6.4-8.2 ALBUMIN (test code=ALB) 3.2 gm/dl 3.2-4.7 CALCIUM (test code=CA) 10.3 mg/dl 8.0-10.5 BILIRUBIN TOTAL (test code=BILT) 0.2 mg/dl 0.0-1.0 SGOT/AST (test code=AST) 9 Units/L 15.0-37.0 SGPT/ALT (test code=ALT) 23 Units/L 12.0-78.0 ALKALINE PHOSPHATASE TOTAL (test code=ALKP) 58 Units/L 50.0-136.0 [id number] 07:34:00* Test Item Value Reference Range Comments MAGNESIUM (test code=MAG) 2.0 mg/dl 1.8-2.4 [id number] 07:23:00* Test Item Value Reference Range Comments GLUBED (test code=GLUBED) 103 mg/dL 70-110 CBC W/AUTO [id number] 07:08:00* Test Item Value Reference Range Comments WHITE BLOOD CELL (test code=WBC) 8.9 K/mm3 4.5-11.0 RED BLOOD CELL (test code=RBC) 3.88 M/mm3 4.40-5.90 HEMOGLOBIN (test code=HGB) 11.2 gm/dL 13.0-17.0 HEMATOCRIT (test code=HCT) 38.4 % 36.0-48.0 MEAN CELL VOLUME (test code=MCV) 99.0 UM3 80.0-94.0 MEAN CELL HGB (test code=MCH) 28.9 UUG 25.5-32.5 MEAN CELL HGB CONCETRATION (test code=MCHC) 29.2 gm/dL 29.0-35.5 RED CELL DISTRIBUTION WIDTH (test code=RDW) 12.7 % 11.5-15.0 PLATELET COUNT (test code=PLT) 244 K/mm3 150-400 MEAN PLATELET VOLUME (test code=MPV) 9.2 fl 7.4-10.4 NEUTROPHIL % (test code=NT%) 67.4 % 49.0-76.0 LYMPHOCYTE % (test code=LY%) 19.5 % 23.0-38.0 MONOCYTE % (test code=MO%) 11.0 % 1.0-10.0 EOSINOPHIL % (test code=EO%) 1.6 % 1.0-5.0 BASOPHIL % (test code=BA%) 0.1 % 0.0-1.0 NEUTROPHIL # (test code=NT#) 6.0 K/mm3 2.4-6.3 LYMPHOCYTE # (test code=LY#) 1.7 K/mm3 1.2-4.0 MONOCYTE # (test code=MO#) 1.0 K/mm3 0.0-0.6 EOSINOPHIL # (test code=EO#) 0.1 K/MM3 0.0-0.7 BASOPHIL # (test code=BA#) 0.0 K/mm3 0.0-0.2 [id number] 15:31:00* Test Item Value Reference Range Comments GLUBED (test code=GLUBED) 98 mg/dL 70-110 [id number] 11:17:00* Test Item Value Reference Range Comments GLUBED (test code=GLUBED) 123 mg/dL 70-110 [id number] 07:36:00* Test Item Value Reference Range Comments GLUBED (test code=GLUBED) 85 mg/dL 70-110 [id number] 20:40:00* Test Item Value Reference Range Comments GLUBED (test code=GLUBED) 132 mg/dL 70-110 [id number] 20:27:00* Test Item Value Reference Range Comments GLUBED (test code=GLUBED) 140 mg/dL 70-110 - XR CHEST 1 [id number] 15:36:00 FAX: Ap Velez [phone] [place]: St: ADM FAX: Rickey Kaminski MD [phone] FAX: Franko Nieto MD [phone] Name: NICHOLAS VARGAS III [facility] : 1975 Age/S: 43/M [address] [facility] Unit #: [id number] Loc: [address] [place], [place]: [place] [address] Acct: [id number] Dis Date: Status: ADM IN ONE #: [phone] Exam Date: 11/11/2018 1513 FAX #: [phone] Reason: sob EXAMS: CPT CODE: [id number] XR CHEST 1 V 45552 CHEST 1 VIEW CLINICAL INFORMATION: sob COMPARISON: November 11, 2018 FINDINGS: A small bore pigtail chest tube is unch anged in positioning in the left upper hemithorax. No pneumothorax is ho ntified. No new airspace consolidation is seen. The heart size is normal . The bones are intact. IMPRESSION: A l eft-sided chest tube is in place. No pneumothorax is identified. LOCATION: S17 at 1536 Reported and signed by: Sanjay Marroquin M.D. CC: Ap Allison MD; Rickey Morfin MD; Franko Guido MD Technologist: ALLEN HOLLIS [facility] Date/Time/By: 11/11/2018 (1 467) : By: [email or web address] PAGE 1 Signed Report FAX: Ap Velez [phone] [place]: EM St: ADM FAX: Rickey Kaminski MD [phone] FAX: Franko Nieto MD [phone] Name: NICHOLAS VARGAS III [facility] : 1975 Age/S: 43/M [address] [facility] Unit #: [id number] Loc: [address] [place] [address] [place]: [place] [address] Acct: [id number] Dis Date: Status: ADM IN PHONE #: [phone] Exam Date: 11/11/2018 1513 FAX #: [phone] Reason: sob EXAMS: CPT CODE: [id number] XR CHEST 1 V 79182 <Continued> Orig Print D/T: S: 11/11/2018 (9171) PAGE 2 Signed Report [id number] 12:09:00* Test Item Value Reference Range Comments GLUBED (test code=GLUBED) 120 mg/dL 70-110 [id number] 09:15:00* Test Item Value Reference Range Comments GLUBED (test code=GLUBED) 84 mg/dL 70-110 - XR CHEST 1 [id number] 08:53:00 FAX: Ap Velez [phone] [place]: St: ADM FAX: Rickey Kaminski MD [phone] FAX: Franko Nieto MD [phone] Name: NICHOLAS VARGAS III [facility] : 1975 Age/S: 43/M [address] [facility] Unit #: [id number] Loc: [address] [place] [address] [place]: [place] [address] Acct: [id number] Dis Date: Status: ADM IN [facility] #: [phone] Exam Date: 11/11/2018 08 FAX #: [phone] Reason: sob EXAMS: CPT CODE: [id number] XR CHEST 1 V 28620 Location code: R 16 Chest 1 view Indication:sob. Com parison: 11/10/2018 Findings: The heart and mediastinu m are not remarkable. Costophrenic angles are clear. Small linear atelectasis at the left base. Left-sided pigtail catheter f or pneumothorax unchanged in position. Further interval resolution of lef t-sided pneumothorax, with small persistent at the left apex. Bone is unr emarkable for age. Impression: 1. Further reso lution of left-sided pneumothorax. Small residual pneumothorax remains at the left apex. Minimal left basilar linear atelectasis. at 0853 Reported and signed by: Ismael Isbell M.D. CC: Ap Allison MD; Rickey Morfin MD; Franko Guido MD Technologist: ALLEN HILL Trnscrd Date/Time/By: 11/11/2018 (0853) : By: [email or web address] PAGE 1 Signed Report FAX: Ap Velez [phone] [place]: St: ADM FAX: Rickey Kaminski MD [phone] FAX: Franko Nieto MD [phone] Name: NICHOLAS VARGAS III [facility] : 1975 Age/S: 43/M [address] [facility] Unit #: [id number] Loc: [address] [place]: [place] [address] Acct: [id number] Dis Date: Status: ADM IN PHONE #: [phone] Exam Date: 11/11/2018 0812 FAX #: Reason: sob EXAMS: CPT CODE: [id number] XR CHEST 1 V 91714 <Continued> Orig Print D/T: S: 11/11/2018 (0856) PAGE 2 Signed Report GLUBED 2018-11-10 20:40:00* Test Item Value Reference Range Comments GLUBED (test code=GLUBED) 108 mg/dL 70-110 [id number] 16:50:00* Test Item Value Reference Range Comments GLUBED (test code=GLUBED) 114 mg/dL 70-110 [id number] 11:18:00* Test Item Value Reference Range Comments GLUBED (test code=GLUBED) 143 mg/dL 70-110 - XR CHEST 1 [id number] 11:06:00 FAX: Ap Velez [phone] [place]: St: ADM FAX: Rickey Kaminski MD [phone] FAX: Franko Nieto MD [phone] Name: NICHOLAS VARGAS III [facility] : 1975 Age/S: 43/M [address] [facility] Unit #: [id number] Loc: [address] Phys: [place] [address] Acct: [id number] Dis Date: Status: ADM IN ONE #: [phone] Exam Date: 11/10/2018 1048 FAX #: [phone] Reason: ptx EXAMS: CPT CODE: [id number] XR CHEST 1 V 76896 CHEST 1 VIEW CLINICAL INFORMATION: Pneumothorax COMPARISON: Chest radiograph dated November 09, 2018 FINDINGS: A left apical pigtail chest tube is unchanged in position. There is redevelopmen t of a moderate-sized pneumothorax. Left basilar airspace opacities remai n. The right lung is clear. The heart size is normal. IMPRESSI ON: There is redevelopment of a moderate-sized pneumothorax. A pigtail chest tube is in place. LOCATION: 16 at 1106 Repo rted and signed by: Sanjay Marroquin M.D. CC: Ap kern MD; Rickey Morfin MD; Franko Guido MD Technologist: ALLEN HILL Trntnrd Date/Time/By: 11/10/2018 (1106) : By: Inocencia [email or web address] PAGE 1 Signed Report FAX: Ap Velez [phone] [place]: St: [facility] FAX: Rickey Kaminski MD [phone] FAX: Franko Nieto MD [phone] Name: NICHOLAS VARGAS III [facility] : 1975 Age/S: 43/M [address] [facility] Unit #: [id number] Loc: [address] [place]: [place] [address] A cct: [id number] Dis Date: Status: ADM IN PHONE #: [phone] Exam Date: 11/10/2018 1048 FAX #: [phone] Reason: ptx EXAMS: CPT CODE: [id number] XR CHEST 1 V 94419 < Continued> Orig Print D/T: S: 11/10/2018 (5349) PAGE 2 Signed Report [id number] 07:27:00* Test Item Value Reference Range Comments GLUBED (test code=GLUBED) 79 mg/dL 70-110 [id number] 20:10:00* Test Item Value Reference Range Comments GLUBED (test code=GLUBED) 107 mg/dL 70-110 [id number] 16:37:00* Test Item Value Reference Range Comments GLUBED (test code=GLUBED) 101 mg/dL 70-110 - XR CHEST 2 [id number] 14:09:00 FAX: Ap Velez [phone] [place]: St: ADM FAX: Franko Nieto MD [phone] Name: NICHOLAS VARGAS III [facility] : 1975 Age/S: 43/M [address] [facility] Unit #: [id number] Loc: [address] [place] [address] Phys: [place] [address] Acct: [id number] Dis Date: Status: ADM IN PHONE #: [phone] Exam Date: 11/09/2018 1350 FAX #: [phone] Reason: S/P CHEST TUBE EXAMS: CPT CODE: [id number] XR CHEST 2 V 24539 REASON FOR EXAM: Spontaneous pneumothorax, chest tube placement. Fluoroscopy guided chest tube placement. Fluoroscopy time 0.5 minutes, total dose 0.168Xjfb5. The patient was given an explanation of the procedure. Family members had signed consent for the procedure. A timeout was called to verify the appropriate person and procedure. The anterior 2nd rib was located. The patient was prepped in usual sterile fashion. Local infiltration anesthesia applied to the skin surface just above the 2nd rib in the mid clavicular line. A 6.3-Cayman Islander pigtail catheter was introduced into the pleural space. The coil was directed to the lung apex. The pigtail catheter was sutured to the chest wall. A skin fixator was also placed. The patient was hooked to Pleur-evac and water seal. No procedural complications were id entified. Estimated blood loss: 1 mL. The patient tolerated the procedure well and returned to the floor in stable condition. IMPRESSION: Pigtail catheter placement, left lung apex for pneu mothorax. REASON FOR EXAM: Postop pigtail catheter placement. COMPARISON: November 09, 2018 earlier at 10 30 hours. Chest,2 views, frontal and lateral projection at 133 8 hours. The left-sided pigtail catheter resides within the l eft apex of the lung region. Decreased size to the pneumothorax seen in ferior lateral. The lungs are hyperinflated and clear. Heart size is normal. No effusion can be seen. Osse ous structures appear to be intact. PAGE 1 Signed Rep ort (CONTINUED) FAX: Ap Velez [phone] [place]: EM St: ADM FAX: Franko Nieto MD [phone] ----- Name : NICHOLAS VARGAS III [facility] : Age/S: 43/M [address] [facility] Unit #: [id number] Loc: [address] Phys: [place] [address] Acct: [id number] Dis Date: Status: ADM IN PHONE #: [phone] Exam Date: 11/09/2018 1350 FAX #: [phone] Reason: S/P CHEST TUBE EXAMS: CPT CODE: [id number] XR CHEST 2 V 45884 <Continued> IMPRESSION: Pigtail catheter placement with moderate improvement in pneumothorax. Location: 9 at 1409 Reported and signed by: Chang Deluca M.D. CC: Ap Allison MD; Franko Guido MD Technologist: DAVID GEIGER Trntnrd Date/Time/By: 11/09/2018 (7948) : By: [facility] PAGE 2 Signed Report FAX: Ap Velez [phone] [place]: [facility]: [facility] FAX: Franko Nieto MD [phone] Name: NICHOLAS VARGAS I II [facility] : 1975 Age/S: 43/M [address] [facility] Unit #: [id number] Loc: [address] [place], [place]: [place] [address] Acct: [id number] Dis Date: Status: ADM IN PHONE #: [phone] Exam D ate: 11/09/2018 1350 FAX #: [phone] Reason: S /P CHEST TUBE EXAMS: CPT CODE: [id number] XR CHEST 2 V 10148 <Continued> Orig Print D/T: S: 11/09/2018 (2031) PAGE 3 Signed Report - GINA Valentine/ SUJATHA 2018-11-09 14:09:00 FAX: Ap Velez [phone] [place]: St: ADM FAX: Rickey Kaminski MD [phone] FAX: Franko Nieto MD [phone] Name: NICHOLAS VARGAS III [facility] : 1975 Age/S: 43/M [address] [facility] Unit #: [id number] Loc: [address] [place], [place]: [place] [address] Acct: [id number] Dis Date: Status: ADM IN PH ONE #: [phone] Exam Date: 11/09/2018 1349 FAX #: [phone] Reason: EXAMS: CPT CODE: [id number] PE RC PLEJARAD LOOMIS W/ IMG 03658 REASON FOR EXA M: Spontaneous pneumothorax, chest tube placement. Fluoroscopy mignon ded chest tube placement. Fluoroscopy time 0.5 minutes, total dose 0.246Bxjm0. The patient was given an explanation of the procedure. Family members had signed consent for the procedure. A timeout was luisa led to verify the appropriate person and procedure. The ante rior 2nd rib was located. The patient was prepped in usual sterile fashio n. Local infiltration anesthesia applied to the skin surface just above t he 2nd rib in the mid clavicular line. A 6.3-[place] Islander pigtail catheter was introduced into the pleural space. The coil was directed to the lung apex . The pigtail catheter was sutured to the chest wall. A skin fixa tor was also placed. The patient was hooked to Pleur-evac and water seal. No procedural complications were identified. Estimated blood los s: 1 mL. The patient tolerated the procedure well and return ed to the floor in stable condition. IMPRESSION: Pigtail c atheter placement, left lung apex for pneumothorax. REASON FOR EXAM: Postop pigtail catheter placement. COMPARISON: November 09, 2018 earlier at 1030 hours. est,2 views, frontal and lateral projection at 1338 hours. Th e left-sided pigtail catheter resides within the left apex of the lung r egion. Decreased size to the pneumothorax seen inferior lateral. The lungs are hyperinflated and clear. Heart size is normal. No effusion can be seen. PAGE 1 Signed R eport (CONTINUED) FAX: Ap Velez [place]: St: ADM FAX: Rickey Kaminski MD [phone] FA X: Franko Nieto MD [phone] Name: NICHOLAS VARGAS III [facility] : 1975 Age/S: 43/M [address] [facility] Unit #: [id number] Loc: [address] [place] [address] [place]: [place] [address] Acct: [id number] Dis Date: Status: ADM IN PHONE #: [phone] Exam Date: 10/2018 1349 FAX #: [phone] Reason: EXAMS: CPT CODE: [id number] PERC PLEUR DRN W/ IMG 32 557 <Continued> Osseous structures appear to be intact. IMPRESSION: Pigtail catheter placement with moderate improvement in pneumothorax. Location: U19 at 1409 Reported and signed by: Chang Deluca M.D. CC: Ap Allison MD; Rickey Morfin MD; Franko Guido MD Technologist: DAVID GEIGER [facility] Date/Time/By: 11/09/2018 (5918) : By: [facility]ST[facility] PAGE 2 Signed Report FAX: Ap Velez [phone] [place]: St: ADM FAX: Rickey Kaminski MD [phone] FAX: Franko Nieto MD [phone] ---- Nam e: NICHOLAS VARGAS III [facility] : Age/S: 43/M [address] [facility] Unit #: [id number] Loc: [address] [place]: [place] [address] Acct: [id number] Dis Damaso e: Status: ADM IN PHONE #: Exam Date: 11/09/2018 1349 FAX #: Reason: EXAMS: CPT CODE: [id number] PERC PLEUR DRN W/ IMG 12747 <Continued> Orig Print D/T: S: 11/09/2018 (9655) PAGE 3 Signed Report - XR CHEST 1 [id number] 10:44:00 FAX: Ap Velez [phone] [place]: St: ADM FAX: Franko Nieto MD [phone] Name: NICHOLAS VARGAS III [facility] : 1975 Age/S: 43/M [address] [place] [employer] Unit #: [id number] Loc: [address] [place], [place]: [place] [address] Acct: [id number] Dis Date: Status: ADM IN PHONE #: [phone] Exam Date: 11/09/2018 1040 FAX #: [phone] Reason: SOB EXAMS: CPT CODE: [id number] XR CHEST 1 V 83899 REASON FOR EXAM: Shortness of breath, pneumothorax. COMPARISON: November 09, 2018. Earlier at 0814 hours Chest, portable, single frontal view. The left pneumothorax is seen to be larger now more visualized at the lung base apex and lateral chest in the moderate range likely 40+ %. No tension component. The right lung is well- inflated and clear. Heart size is normal. No effusion or pneumothorax can be seen. Osseous structures appear to be intact. . IMPRESSION: Worsening pneumothorax since film 2 hours earlier in the day. This may be 40+ % pneumothorax Location: U19 at 1044 Reported and signed by: Chang Deluca M.D. CC: Ap Allison MD; Franko Guido MD Technologist: CHAD AWAN Trntnrd Date/Time/By: 11/09/2018 (4785) : By: [facility]MODEST[facility] PAGE 1 Signed Report FAX: Ap Velez [phone] [place]: St: [facility] FAX: Franko Nieto MD [phone] Name: NICHOLAS RUIZ III [facility] : [birth year] Age/S: 43/M [address] [facility] Unit #: [id number] Loc: [address] [place], [place]: [place] [address] Acct: [id number] Dis Date: Status: ADM IN PHONE #: [phone] Exam Date: 11/09/2018 1040 FAX #: [phone] Reason: SOB EXAMS: CPT CODE: [id number] XR CHEST 1 V 25801 <Continued> Orig Print D/T: S: 11/09/2018 (5372) PAGE 2 Signed Report - XR CHEST 1 V 2018-11-09 08:32:00 FAX: Ap Velez [phone] [place]: St: ADM FAX: Franko Nieto MD [phone] FAX: Omega Pradhan MD [phone] Name: NICHOLAS VARGAS III [facility] : 1975 Age/S: 43/M [address] [facility] Unit #: [id number] Loc: [address] [place], [place]: [place] [address] Acct: [id number] Dis Date: Status: ADM IN PH ONE #: [phone] Exam Date: 11/09/2018 0820 FAX #: [phone] Reason: pneumothorax EXAMS: CPT CODE: [id number] XR CHEST 1 V 47550 EXAM: - XR CH EST 1 V HISTORY: Pneumothorax Location code:C3 COMPARISON: 11/08/2018 FINDINGS: Single AP v iew of the chest is provided. Left apical pneumothorax with estimated volu me of 5% is seen. The right lung is clear. No additional interval change . IMPRESSION: 1. Left apical pneumothorax estimated at 5% lung volume is seen. at 0832 Reported and signed by: Jeovany Silveira M.D. CC: Ap Allison MD; Franko Guido MD; Omega Moya MD Technologist: DAVID GEIGER [facility] Damaso e/Time/By: 11/09/2018 (0832) : By: [email or web address] PAGE 1 Signed Report FAX: Ap Velez [phone] [place]: St: ADM FAX: Franko Nieto MD [phone] FAX: Omega Pradhan MD [phone] Name: NICHOLAS VARGAS III [facility] : 1975 Age/S : 43/M [address] [facility] Unit #: [id number] Loc: [address] [place] [address] [place]: [place] [address] Acct: [id number] Dis Date: Status: ADM IN PHONE #: [phone] Exam Date: 11/09/2018819 FAX #: [phone] Reason: pneumothorax EXAMS: CPT CODE: [id number] XR CHEST 1 V 81501 <Continued> Orig Print D/T: S: 11/09/2018 (0835) PAGE 2 Signed Report [id number] 07:41:00 * Test Item Value Reference Range Comments GLUBED (test code=GLUBED) 94 mg/dL 70-110 [id number] 20:28:00* Test Item Value Reference Range Comments GLUBED (test code=GLUBED) 132 mg/dL 70-110 - XR CHEST 1 [id number] 16:39:00 FAX: Smumer Ap Allison [phone] [place]: St: ADM FAX: Franko Nieto MD [phone] FAX: Omega Pradhan MD [phone] Name: NICHOLAS VARGAS III [facility] : 1975 Age/S: 43/M [address] [facility] Unit #: [id number] Loc: [address] [place] [address] Phys: [place] [address] Acct: [id number] Dis Date: Status: ADM IN [facility] #: [phone] Exam Date: 11/08/2018 163 FAX #: [phone] Reason: pneumothorax EXAMS: CPT CODE: [id number] XR CHEST 1 V 03924 REASON FOR EXA M: Pneumothorax, chest tube. COMPARISON: November 08, 2018. Chest, single view, frontal projection. The left-sided diana st tube has been removed. Sliver-like pneumothorax against the chest wall possibly at the lung apex, small. Lung base pneumothorax not appreciated. The lungs are well-inflated and clear. Minimal basilar atelecta sis. Heart size is normal. No effusion or pneumothorax can be seen. Osseous structures appear to be intact. . IMPRESSION: Chest tube removed. Sliver-like pneumothorax against the chest wall, possible small amount at the apex. No consolidation. Location: 9 at 1639 Reported and signed by: Chang Deluca M.D. CC: Ap Allison MD; Franko Guido MD; Omega Moya MD Technologist: LETTY Marshscrd Date/Time/By: 9 (4928) : By: [facility]MODEST[facility] PAGE 1 Signed Report FAX: Ap Velez [phone] [place]: EM St: ADM FAX: Franko Nieto MD [phone] FAX: Omega Pradhan MD [phone] Name: NICHOLAS VARGAS III [facility] : 1975 Age/S: 43/M [address] [facility] Unit #: [id number] Loc: [address] [place]: [place] [address] Acct: [id number] Dis Date: Status: ADM IN PHONE #: [phone] Exam Date: 11/08/2018 1634 FAX #: [phone] Reason: pneumothorax EXAMS: CPT CODE: [id number] XR CHEST 1 V 02720 <Continued> Orig Print D/T: S: 11/08/2018 (5286) PAGE 2 Signed Report [id number] 15:10:00* Test Item Value Reference Range Comments GLUBED (test code=GLUBED) 119 mg/dL 70-110 [id number] 11:50:00* Test Item Value Reference Range Comments GLUBED (test code=GLUBED) 134 mg/dL 70-110 - XR CHEST 1 [id number] 08:44:00 FAX: Ap Velez [phone] [place]: EM St: ADM FAX: Franko Nieto MD [phone] FAX: Kristin Gonzales MD Name: NICHOLAS VARGAS III [facility] : 1975 Age/S: 43/M [address] [facility] Unit #: [id number] Loc: [address] [place], [place] Phys: [place] [address] Acct: [id number] Dis Date: Status: ADM IN ONE #: [phone] Exam Date: 11/08/2018829 FAX #: [phone] Reason: SOB EXAMS: CPT CODE: [id number] XR CHEST 1 V 51030 REASON FOR EXA M: Pneumothorax assessment, chest tube placement. COMPARISON: Chandan king 2018. Chest, portable single frontal view. T he right-sided chest tube has been retracted slightly with the port near t he chest wall. No significant subcutaneous emphysema present. No pneumot horax not appreciated. Atelectasis changes at the lung base. Right lung hyperinflated but clear The lungs are well-inflated and clear. He art size is normal. No effusion or pneumothorax can be seen. Osseous structures appear to be intact. IMPRESSION: Retracted chest tube with its port at the chest wall. No significant subcutaneous emphysema. No evidence of pneumothorax. Left basilar atelectasis Location: U19 at 0844 Reported and signed by: Chang Deluca M.D. CC: pA Allison MD; Franko Guido MD; Kristin Gonzales MD Technologist: FLORA CARL Trnscrd Date/Time/By: 11/08/2018 (0844) : By: [facility] PAGE 1 Sign ed Report FAX: Ap Velez [phone] [place]: EM St: ADM FAX: Franko Nieto MD [phone] FAX: Kristin Gonzales MD Name: NICHOLAS VARGAS III [facility] : 1975 Age/S: 43/M [address] [facility] Unit #: [id number] Loc: [address] [place] [address] Phys: [place] [address] Acct: [id number] Dis Date: Status: ADM IN PHONE #: [phone] Exam Date: 11/08/2018829 FAX #: [phone] Reason: SOB EXAMS: CPT CODE: [id number] XR CHEST 1 V 93285 <Continued> Orig Print D/T: S: 11/08/2018 (0847) PAGE 2 Signed Report [id number] 07:38:00* Test Item Value Reference Range Comments GLUBED (test code=GLUBED) 89 mg/dL 70-110 COMPREHENSIVE METABOLIC [id number] 06:49:00* Test Item Value Reference Range Comments SODIUM (test code=NA) 138 mmol/l 134.0-147.0 POTASSIUM (test code=K) 4.4 mmol/L 3.6-5.2 CHLORIDE (test code=CL) 101 mmol/l 98.0-107.0 CARBON DIOXIDE (test code=CO2) 33.0 mmol/l 21.0-33.0 ANION GAP (test code=GAP) 8.4 0-20 GLUCOSE (test code=GLU) 95 mg/dl 70.0-110.0 BLOOD UREA NITROGEN (test code=BUN) 12 mg/dl 7.0-18.0 CREATININE (test code=CREAT) 0.46 mg/dL 0.60-1.30 GFR NON BLACK (test code=GFRNONBLACK) 211 mL/min 95-105 GFR BLACK (test code=GFRBLACK) 255 mL/min 115-127 TOTAL PROTEIN (test code=PROT) 6.7 gm/dL 6.4-8.2 ALBUMIN (test code=ALB) 3.0 gm/dl 3.2-4.7 CALCIUM (test code=CA) 9.7 mg/dl 8.0-10.5 BILIRUBIN TOTAL (test code=BILT) 0.4 mg/dl 0.0-1.0 SGOT/AST (test code=AST) 15 Units/L 15.0-37.0 SGPT/ALT (test code=ALT) 36 Units/L 12.0-78.0 ALKALINE PHOSPHATASE TOTAL (test code=ALKP) 59 Units/L 50.0-136.0 Comments to Clinical Trial Specialist: Patient is currently in the ED waiting on a bedLIPID PROFILE (CORONARY RISK)2018-11-08 06:49:00* Test Item Value Reference Range Comments TRIGLYCERIDES (test code=TRIG) 27 mg/dl 40.0-150.0 CHOLESTEROL (test code=CHOL) 96 mg/dl 0.0-200.0 CHOLESTEROL/HDL RATIO (test code=CHOLHDL) 2.0 RATIO HDL CHOLESTEROL (test code=HDL) 48 mg/dl 30.0-60.0 LIPOPROTEIN LDL (test code=LDL) 46 mg/dl 70-130 Comments to Clinical Trial Specialist: Patient is currently in the ED waiting on a [id number] 06:49:00* Test Item Value Reference Range Comments MAGNESIUM (test code=MAG) 1.9 mg/dl 1.8-2.4 Comments to Clinical Trial Specialist: Patient is currently in the ED waiting on a bedCBC W/AUTO [id number] 06:22:00* Test Item Value Reference Range Comments WHITE BLOOD CELL (test code=WBC) 15.2 K/mm3 4.5-11.0 RED BLOOD CELL (test code=RBC) 3.52 M/mm3 4.40-5.90 HEMOGLOBIN (test code=HGB) 10.3 gm/dL 13.0-17.0 HEMATOCRIT (test code=HCT) 35.8 % 36.0-48.0 MEAN CELL VOLUME (test code=MCV) 101.7 UM3 80.0-94.0 MEAN CELL HGB (test code=MCH) 29.3 UUG 25.5-32.5 MEAN CELL HGB CONCETRATION (test code=MCHC) 28.8 gm/dL 29.0-35.5 RED CELL DISTRIBUTION WIDTH (test code=RDW) 13.2 % 11.5-15.0 PLATELET COUNT (test code=PLT) 187 K/mm3 150-400 MEAN PLATELET VOLUME (test code=MPV) 9.7 fl 7.4-10.4 NEUTROPHIL % (test code=NT%) 77.4 % 49.0-76.0 LYMPHOCYTE % (test code=LY%) 13.1 % 23.0-38.0 MONOCYTE % (test code=MO%) 8.4 % 1.0-10.0 EOSINOPHIL % (test code=EO%) 0.5 % 1.0-5.0 BASOPHIL % (test code=BA%) 0.2 % 0.0-1.0 NEUTROPHIL # (test code=NT#) 11.7 K/mm3 2.4-6.3 LYMPHOCYTE # (test code=LY#) 2.0 K/mm3 1.2-4.0 MONOCYTE # (test code=MO#) 1.3 K/mm3 0.0-0.6 EOSINOPHIL # (test code=EO#) 0.1 K/MM3 0.0-0.7 BASOPHIL # (test code=BA#) 0.0 K/mm3 0.0-0.2 Comments to Clinical Trial Specialist: Patient is currently in the ED waiting on a bedCARDIAC ENZYMES [id number] 20:47:00* Test Item Value Reference Range Comments CREATINE KINASE (CK) (test code=CK) 92 Units/L 39-308 CKMB (test code=CKMBT) 4.1 NG/ML 0.5-5.0 DISREGARD CKMB INDEX CALCULATION WHENEVER THE CKMBT ISREPORTED <0.5 CKMB INDEX (test code=CKMBI) 4.5 0.0-2.5 TROPONIN-I (test code=TROPI) <0.02 NG/ML 0.00-0.06 REFERENCE RANGE TROPONIN I HEALTHY INDIVIDUALS: <0.06 ng/mL R/O ISCHEMIA: 0.07 - 0.60 ng/mL CUT-OFF RANGE FOR AMI: 0.60 - 1.5 ng/mL : Specimen comments: Please see the initial specimen in the lab as the first draw on this series Comments to Clinical Trial Specialist: Please draw the 2nd specimen q4hrs after the first and the 3rd 8hrs after the first.Specime n comments: drawn Q4hrs then [id number] to Clinical Trial Specialist: Patient is currently in the ED waiting on a [id number] 20:37:00* Test Item Value Reference Range Comments GLUBED (test code=GLUBED) 83 mg/dL 70-110 CARDIAC ENZYMES [id number] 16:37:00* Test Item Value Reference Range Comments CREATINE KINASE (CK) (test code=CK) 80 Units/L 39-308 CKMB (test code=CKMBT) 3.6 NG/ML 0.5-5.0 DISREGARD CKMB INDEX CALCULATION WHENEVER THE CKMBT ISREPORTED <0.5 CKMB INDEX (test code=CKMBI) 4.5 0.0-2.5 TROPONIN-I (test code=TROPI) 0.02 NG/ML 0.00-0.06 REFERENCE RANGE TROPONIN I HEALTHY INDIVIDUALS: <0.06 ng/mL R/O ISCHEMIA: 0.07 - 0.60 ng/mL CUT-OFF RANGE FOR AMI: 0.60 - 1.5 ng/mL : Specimen comments: Please see the initial specimen in the lab as the first draw on this series Comments to Clinical Trial Specialist: Please draw the 2nd specimen q4hrs after the first and the 3rd 8hrs after the first.Specime n comments: drawn Q4hrs then [id number] to Clinical Trial Specialist: Patient is currently in the ED waiting on a [id number] 16:00:00* Test Item Value Reference Range Comments GLUBED (test code=GLUBED) 109 mg/dL 70-110 - XR CHEST 1 [id number] 13:17:00 FAX: Franko Nieto MD [phone] [place]: St: [facility] FAX: Kristin Gonzales MD Name: NICHOLAS VARGAS III [facility] : 1975 Age/S: 43/M [address] [facility] Unit #: [id number] Loc: [place], [place]: [place] [address] Acct: [id number] Dis Date: Status: REG ER PHONE #: [phone] Exam Date: 11/07/2018 1240 FAX #: [phone] Reason: S/P CHEST TUBE EXAMS: CPT CODE: [id number] XR CHEST 1 V 20928 LOCATION: T18 EXAM: CHEST 1 VIEW INDICATION: S/P CHEST TUBE COMPARISON: Chest x-ray November 07, 2018 TECHNIQUE: AP chest radiograph. FINDINGS: Left-sided chest tube in place with tip in the left lung apex. Residual left pneumothorax measuring about 5- 10%. Pleural reflection in the left lower lung. Right lung is clear. Heart and mediastinum are normal in size and contour. Bones and peripheral soft tissues are unremarkable. IMPRESSION: Left-sided chest tube placed. Residual left pneumothorax measures 5-10%. at 6666 Reported and signed by: Cole Goetz M.D. CC: Franko Guido MD; Kristin Gonzales MD Technologist: MARYBETH PEÑA Trnscrd Date/Time/By: 11/07/2018 (2718) : By: [email or web address] PAGE 1 Signed Report FAX: Franko Nieto MD [phone] [place]: St: REG FAX: Kristin Gonzales MD ------- Name: NICHOLAS VARGAS III [facility] : 1975 Age/S: 43/M [address] [facility] [facility] Unit #: [id number] Loc: [place], [place]: [place] [address] Acct: [id number] Dis Date: Status: REG ER PHON E #: [phone] Exam Date: 11/07/2018 1240 FAX # : [phone] Reason: S/P CHEST TUBE EX AMS: CPT CODE: [id number] XR C HEST 1 V 34311 <Continued> Orig Print D/T: S: 11/07/2018 (5150) PAGE 2 Signed Report LACTIC [id number] 11:34:00* Test Item Value Reference Range Comments LACTIC ACID (test code=LACT) 1.5 MMOL/L 0.4-2.0 BASIC METABOLIC [id number] 11:34:00* Test Item Value Reference Range Comments SODIUM (test code=NA) 138 mmol/l 134.0-147.0 POTASSIUM (test code=K) 5.1 mmol/L 3.6-5.2 CHLORIDE (test code=CL) 101 mmol/l 98.0-107.0 CARBON DIOXIDE (test code=CO2) 31.7 mmol/l 21.0-33.0 ANION GAP (test code=GAP) 10.4 0-20 GLUCOSE (test code=GLU) 95 mg/dl 70.0-110.0 BLOOD UREA NITROGEN (test code=BUN) 15 mg/dl 7.0-18.0 CREATININE (test code=CREAT) 0.43 mg/dL 0.60-1.30 GFR NON BLACK (test code=GFRNONBLACK) 228 mL/min 95-105 GFR BLACK (test code=GFRBLACK) 276 mL/min 115-127 CALCIUM (test code=CA) 10.0 mg/dl 8.0-10.5 Specimen comments: .Specimen comments: Clean CatchB-TYPE NATRIURETIC PEPTIDE 2018-11-07 11:34:00* Test Item Value Reference Range Comments B-TYPE NATRIURETIC PEPTIDE (test code=BNP) 11.0 PG/ML 5-100 Specimen comments: .Specimen comments: Clean [id number] 11:34:00 * Test Item Value Reference Range Comments TROPONIN-I (test code=TROPI) <0.02 NG/ML 0.00-0.06 REFERENCE RANGE TROPONIN I HEALTHY INDIVIDUALS: <0.06 ng/mL R/O ISCHEMIA: 0.07 - 0.60 ng/mL CUT-OFF RANGE FOR AMI: 0.60 - 1.5 ng/mL Specimen comments: .Specimen comments: [employer] PANEL 2018-11-07 11:29:00* Test Item Value Reference Range Comments SODIUM (test code=NA) 138 mmol/l 134.0-147.0 POTASSIUM (test code=K) 5.1 mmol/L 3.6-5.2 CHLORIDE (test code=CL) 101 mmol/l 98.0-107.0 CARBON DIOXIDE (test code=CO2) 31.7 mmol/l 21.0-33.0 ANION GAP (test code=GAP) 10.4 0-20 GLUCOSE (test code=GLU) mg/dl 70.0-110.0 BLOOD UREA NITROGEN (test code=BUN) mg/dl 7.0-18.0 CREATININE (test code=CREAT) mg/dL 0.60-1.30 GFR NON BLACK (test code=GFRNONBLACK) mL/min 95-105 GFR BLACK (test code=GFRBLACK) mL/min 115-127 CALCIUM (test code=CA) mg/dl 8.0-10.5 Specimen comments: .Specimen comments: Marie Gulfstream TechnologiesB-TYPE NATRIURETIC PEPTIDE 2018-11-07 11:29:00* Test Item Value Reference Range Comments B-TYPE NATRIURETIC PEPTIDE (test code=BNP) 11.0 PG/ML 5-100 Specimen comments: .Specimen comments: Marie [id number] 11:29:00 * Test Item Value Reference Range Comments TROPONIN-I (test code=TROPI) NG/ML 0.00-0.06 Specimen comments: .Specimen comments: [employer] PANEL 2018-11-07 11:23:00* Test Item Value Reference Range Comments SODIUM (test code=NA) mmol/l 134.0-147.0 POTASSIUM (test code=K) mmol/L 3.6-5.2 CHLORIDE (test code=CL) mmol/l 98.0-107.0 CARBON DIOXIDE (test code=CO2) mmol/l 21.0-33.0 ANION GAP (test code=GAP) 0-20 GLUCOSE (test code=GLU) mg/dl 70.0-110.0 BLOOD UREA NITROGEN (test code=BUN) mg/dl 7.0-18.0 CREATININE (test code=CREAT) mg/dL 0.60-1.30 GFR NON BLACK (test code=GFRNONBLACK) mL/min 95-105 GFR BLACK (test code=GFRBLACK) mL/min 115-127 CALCIUM (test code=CA) mg/dl 8.0-10.5 Specimen comments: .Specimen comments: Clean CatchB-TYPE NATRIURETIC PEPTIDE 2018-11-07 11:23:00* Test Item Value Reference Range Comments B-TYPE NATRIURETIC PEPTIDE (test code=BNP) 11.0 PG/ML 5-100 Specimen comments: .Specimen comments: Clean [id number] 11:23:00 * Test Item Value Reference Range Comments TROPONIN-I (test code=TROPI) NG/ML 0.00-0.06 Specimen comments: .Specimen comments: Clean CatchPROTHROMBIN [id number] 11:22:00* Test Item Value Reference Range Comments PROTHROMBIN TIME PATIENT (test code=PTP) 12.9 SECONDS 9.9-12.8 INTERNATIONAL NORMAL RATIO (test code=INR) 1.1 0.89-1.14 THE INR IS TO BE USED ONLY FOR MONITORING ORAL ANTICOAGULANTTHERAPY. THE FOLLOWING ARE SUGGESTED RANGES FROM THEAMERICAN COLLEGE OF CHEST PHYSICIANS:INDICATION INR VALUEPROPHYLAXIS OF VENOUS THROMBOSIS (ORTHOPEDIC SURGERY) 2.0 - 3.0PROPHYLAXIS OF VENOUS THROMBOSIS (OTHER THAN HIGH-RISK SURGERY) 2.0 - 3.0TREATMENT OF DEEP VEIN THROMBOSIS OR PULMONARY EMBOLISM 2.0 - 3.0PREVENTION OF SYSTEMIC EMBOLISM TISSUE HEART VALVES 2.0 - 3.0 ACUTE MYOCARDIAL INFARCTION (TO PREVENT SYSTEMIC EMBOLISM) 2.0 - 3.0 ACUTE MYOCARDIAL INFARCTION (TO PREVENT RECURRENT INFARCT) 2.5 - 3.0 VALVULAR HEART DISEASE 2.0 - 3.0 ATRIAL FIBRILATION 2.0 - 3.0BILEAFLET MECHANICAL VALVE IN AORTIC POSITION 2.0 - 3.0MECHANICAL PROSTHETIC VALVES (HIGH RISK) 2.5 - 3.5PRESENCE OF LUPUS ANTICOAGULANT OR ANTIPHOSPHOLIPID ANTIBODIES 2.5 - 3.5 Specimen comments: .THROMBOPLASTIN TIME [id number] 11:22:00* Test Item Value Reference Range Comments THROMBOPLASTIN TIME PARTIAL (test code=PTT) 29.00 SECONDS 25.86-36.07 [facility] Therapeutic Range - APTT of 55.8-85.4 secondscorrelates with plasma heparin concentration of 0.2-0.4 u/mL New range effective - 12/04/2016 Specimen comments: .CBC W/O [id number] 11:16:00* Test Item Value Reference Range Comments WHITE BLOOD CELL (test code=WBC) 14.8 K/mm3 4.5-11.0 RED BLOOD CELL (test code=RBC) 4.29 M/mm3 4.40-5.90 HEMOGLOBIN (test code=HGB) 12.6 gm/dL 13.0-17.0 HEMATOCRIT (test code=HCT) 43.2 % 36.0-48.0 MEAN CELL VOLUME (test code=MCV) 100.7 UM3 80.0-94.0 MEAN CELL HGB (test code=MCH) 29.4 UUG 25.5-32.5 MEAN CELL HGB CONCETRATION (test code=MCHC) 29.2 gm/dL 29.0-35.5 RED CELL DISTRIBUTION WIDTH (test code=RDW) 13.2 % 11.5-15.0 PLATELET COUNT (test code=PLT) 201 K/mm3 150-400 MEAN PLATELET VOLUME (test code=MPV) 9.5 fl 7.4-10.4 Specimen comments: .ARTERIAL BLOOD [id number] 11:14:00* Test Item Value Reference Range Comments ARTERIAL BLOOD GAS PH (test code=PHA) 7.308 7.350-7.450 ARTERIAL BLOOD GAS PCO2 (test code=PCO2A) 66.5 mmHg 35.0-45.0 ARTERIAL BLOOD GAS PO2 (test code=PO2A) 315.6 mmHg >80.0 BICARBONATE TOTAL HCO3 (test code=HCO3) 32.6 MMOL/L 22.0-26.0 BASE EXCESS (test code=REYNA) 4.5 MMOL/L -4.0-4.0 ABG O2 SATURATION (test code=SATA) 99.7 % 92.0-99.0 FIO2 (test code=FIO2A) 100.0 ABG SITE (test code=SITEA) RR ALLENS TEST (test code=ALLENS) Yes TOTAL HGB (test code=THB) 12.4 g/dL 12.0-16.0 CARBOXYHEMOGLOBIN (test code=HOHGBT) 0.3 % THgb 0.0-1.5 METHEMOGLOBIN (test code=METHGB) 0.3 % 0.0-1.5 NORMAL <2.0POTENTIALLY TOXIC >20.0 - XR CHEST 1 [id number] 11:09:00 FAX: Kristin Gonzales MD [place]: St: REG Name: NICHOLAS RUIZ III [facility] : [birth year] Age/S: 43/M [address] [facility] Unit #: [id number] Loc: [place], [place] Phys: [place] [address] Acct: [id number] Dis Date: Status: REG ER PHONE #: [phone] Exam Date: 11/07/2018 1103 FAX #: [phone] Reason: SOB EXAMS: CPT CODE: [id number] XR CHEST 1 V 64244 HISTORY: Male, 43 years of age with SOB Location code: R16 EXAM: CHEST X-RAY, ONE VIEW COMPARISON: 10/16/2018 COMMENT: Frontal view of the chest is provided. Since prior study the patient has developed a 50-60% left pneumothorax with mediastinal structures shifted slightly to the rig ht. No focal infiltrate, consolidation, mass lesion, or effusion is seen. Calcified lymph nodes seen in right hilum. Cardiac silhouette is within n ormal limits. No acute bony abnormalities. IMPRESSION: A cute 50-60% left tension pneumothorax. Findings were called to Dr. Gonzales at 11:06 a.m. FOR INTERNAL CODING PURPOSES ONLY CRITICAL RESULT CODE: CVR E lectronically Signed by Thalia Nguyen on 10/11 at 1109 Reported and signed by: John Nguyen M.D. CC: Kristin Gonzales MD Technologist: FLORA CARL Trnscrd Date/Time/By: 11/07/2018 (7319) : By: Tanya PAGE 1 Signed Report FAX: Kristin Ho MD [place]: St: REG Name: NICHOLAS VARGAS ESTEBAN [facility] : 1975 Age/S: 43/M [address] [facility] Unit #: [id number] Loc: [place], [place] Phys: Kristin Gonzales MD 7 7591 Acct: [id number] Dis Date: Stat us: REG ER PHONE #: [phone] Exam Date: 11/07/2018 1103 FAX #: [phone] Reason: SOB EXAMS: CPT CODE: [id number] XR CHEST 1 V 75188 <Continued> Orig Print D/T: S: 11/07/2018 (8932) PAGE 2 Signed Report
[2019-04-11] MEDS: VANCOMYCIN 1GM/NS 250 ML 250 ML IV SCH (15:36)
--- NOTE | 2019-04-11 15:54 | NUR ---
REPORT CALLED TO MEME HERNADEZ AT THIS TIME
[2019-04-11] MEDS: FAMOTIDINE 20 MG TAB PO SCH (16:30)
[2019-04-11 16:31] LABS: ABG HCO3 33 mmol/L (23-28); ABG PCO2 46 mmHg (41-51); ABG PH 7.46 (7.31-7.41); ABG PO2 199 mmHg (80-105)
[2019-04-11] MEDS: AZTREONAM 2GM/NS 100ML 100 ML IV SCH (17:27)
[2019-04-11] MEDS ORDERED: CLONAZEPAM0.5 MG GT (17:54)
[2019-04-11] MEDS ORDERED: SODIUM CHLORIDE 0.9% 250ML 250 ML ONE (17:54)
[2019-04-11] MEDS ORDERED: BUSPIRONE HCL5 MG GT (17:54)
[2019-04-11] MEDS ORDERED: ARICEPT5 MG GT (17:54)
[2019-04-11] MEDS ORDERED: BRIMONIDINE TART5 ML OP (17:54)
[2019-04-11] MEDS ORDERED: VENELEX OINTMEN60 GM TP (17:54)
[2019-04-11] MEDS ORDERED: DULCOLAX SUPP10 MG RC (17:55)
[2019-04-11] MEDS ORDERED: IPRATROPIUM BROMIDE 0.02% 2.5 ML NEB NEB SCH (18:00)
[2019-04-11] MEDS ORDERED: FERROUS SU220 MG/51 GT (18:03)
[2019-04-11] MEDS ORDERED: FOLIC ACID1 MG GT (18:03)
[2019-04-11] MEDS ORDERED: VITAMIN D1000 UNI1 GT (18:03)
[2019-04-11] MEDS ORDERED: MULTI-VITAMIN1 EACH GT (18:22)
[2019-04-11] MEDS ORDERED: SERTRALINE HCL100 MG GT (18:22)
[2019-04-11] MEDS ORDERED: ULTRAM50 MG GT (18:22)
[2019-04-11] MEDS ORDERED: NORCO 5-325 TA1 EACH GT (18:22)
[2019-04-11] MEDS ORDERED: LOPERAMIDE2 MG GT (18:22)
[2019-04-11] MEDS ORDERED: HEPARIN SO5000 UNIT/ SC (18:22)
[2019-04-11] MEDS ORDERED: KEPPRA500 MG GT (18:22)
[2019-04-11] MEDS ORDERED: COMBIVENT RESPIM4 GM IH (18:22)
[2019-04-11] MEDS ORDERED: METOPROLOL TART25 MG GT (18:22)
[2019-04-11] MEDS ORDERED: HYDRALAZINE HCL10 MG GT (18:22)
[2019-04-11] MEDS ORDERED: LATANOPROST2.5 ML OP (18:22)
[2019-04-11] MEDS ORDERED: TRAZODONE HCL50 MG GT (18:22)
[2019-04-11] MEDS ORDERED: LACTULOSE20 GM/30 M GT (18:22)
[2019-04-11] MEDS ORDERED: LIDOPATCH1 EACH TD (18:22)
--- NOTE | 2019-04-11 18:41 | NUR ---
Patient arrived to the unit 1615 from ER. Patient alert and oriented. Consent for blood signed and witnessed by second RN.1 unit PRBC started at 1800. At 1830 patient developed temperature of 100.2 Ax. Up from 99.4. Patient denies any s/s. Dr. Lee's office called to notify jyoti at 9435. Awaiting page to be returned.
[2019-04-11] MEDS ORDERED: HYDROCODONE/APAP 5MG-325MG TAB GT PRN (19:00)
[2019-04-11] MEDS ORDERED: BISACODYL 10 MG SUPP PR PRN (19:00)
[2019-04-11] MEDS ORDERED: LACTULOSE SYRUP 20 GM/30 ML UDC GT PRN (19:00)
[2019-04-11] MEDS ORDERED: LOPERAMIDE 1 MG/5 ML NG PRN (19:00)
[2019-04-11] MEDS ORDERED: HYDRALAZINE HCL 10 MG TAB GT PRN (19:00)
[2019-04-11] MEDS ORDERED: TRAMADOL HCL 50 MG TAB GT PRN (19:00)
[2019-04-11] MEDS ORDERED: IPRATROPIUM/ALBUTEROL SULFATE 4 GM INH INH PRN (19:00)
--- NOTE | 2019-04-11 19:21 | NUR ---
Attending paged back and updated on vital signs throughout blood transfusion. MD Gave orders for tylenol PRN. Also gave orders ok to use feeding tube and continue medications from nursing facility. MD also ordered GI consult for anemia.
--- NOTE | 2019-04-11 19:37 | NUR ---
PATIENT RECIEVED STABLE AND ORIENTED X4, PATIENT GETTING 1ST UNIT OF PRBCs AND HAS FEVER OF 100.4, TYLENOL JUST ORDERED PRN AND HOME MEDS CONT. PATIENT PUT ON TUBE FEEDS AT 45 CC/HR OF JEVITY AND TOLERATING WELL. WILL CONT TO MONITOR DURING BLOOD TRANSFUSIONS.
[2019-04-11] MEDS: TRAMADOL HCL 50 MG TAB GT PRN (19:39)
[2019-04-11] MEDS: ACETAMINOPHEN 1000 MG/100 ML IV PRN (19:39)
--- NOTE | 2019-04-11 20:21 | NUR ---
Notified Dr. Toni Narayan of consult. Orders received.
[2019-04-11] MEDS: CLONAZEPAM 0.5 MG TAB GT SCH (20:26)
[2019-04-11] MEDS: LATANOPROST(OPTH) 2.5 ML BTL OP SCH (20:26)
[2019-04-11] MEDS: METOPROLOL TARTRATE 25 MG TAB GT SCH (20:26)
[2019-04-11] MEDS: BUSPIRONE HCL 5 MG TAB GT SCH (20:26)
[2019-04-11] MEDS: LEVETIRACETAM 500 MG TAB GT SCH (20:26)
[2019-04-11] MEDS: SERTRALINE HCL 100 MG TAB GT SCH (20:26)
[2019-04-11] MEDS: HEPARIN SOD (PORCINE) 5,000 UNIT/ML VIAL SC SCH (20:30)
[2019-04-11 20:52] LABS: FERRITIN 517.45 ng/mL (21.81-274.66)
[2019-04-11] MEDS ORDERED: HEPARIN SOD (PORCINE) 5,000 UNIT/ML VIAL SC SCH (21:00)
[2019-04-11 21:18] LABS: BILIRUBIN,URINE NEGATIVE (NEGATIVE); CLARITY,URINE CLEAR (CLEAR); COLOR,URINE YELLOW (YELLOW); KETONES,URINE NEGATIVE (NEGATIVE); LEUKOCYTE ESTERASE ,URINE NEGATIVE (NEGATIVE); NITRITE,URINE NEGATIVE (NEGATIVE); PROTEIN,URINE DIPSTICK TRACE (NEGATIVE); URINE UROBILINOGEN 0.2 mg/dL (0.2 - 1)
[2019-04-11 21:24] LABS: AMORPHOUS SEDIMENT,URINE MODERATE (FEW); BACTERIA,URINE MANY /HPF; EPITHELIAL CELLS,URINE MODERATE /LPF; RBC,URINE 0-5 /HPF (0-5); WBC,URINE (MAN) 0-5 /HPF (0-5)
[2019-04-11] MEDS ORDERED: SODIUM CHLORIDE 0.9% 500ML 500 ML ONE (21:36)
--- NOTE | 2019-04-11 22:13 | NUR ---
PATIENT STARTED SECOND UNIT OF PRBC UNIT NUMBER [id number] WITH NO SIGNS OF DISTRESS NOTED 1 HOUR INTO INFUSION. PATIENT STABLE AND RESTING COMFORTABLY, WILL CONTINUE TO MONITOR.
[2019-04-11 22:26] LABS: FOLATE > 40.0 ng/mL (7.0-15.4)
[2019-04-11] MEDS: ALBUTEROL/IPRATROPIUM 3 ML NEB NEB SCH (22:55)
[2019-04-12] VITALS (26 sets, daily range): BP systolic 84–168; BP diastolic 60–107
[2019-04-12] MEDS: AZTREONAM 2GM/NS 100ML 100 ML IV SCH (01:39)
[2019-04-12] MEDS: VANCOMYCIN 1GM/NS 250 ML 250 ML IV SCH ×2 (02:42→15:41)
[2019-04-12] MEDS: CEFEPIME 2 GM/NS 0.9% 100 ML 100 ML IV SCH ×2 (02:42→16:15)
[2019-04-12] MEDS: ALBUTEROL/IPRATROPIUM 3 ML NEB NEB SCH ×4 (03:00→19:00)
[2019-04-12] MEDS ORDERED: SODIUM CHLORIDE 0.9% 1000ML 1,000 ML ONE (03:04)
--- NOTE | 2019-04-12 05:10 | NUR ---
Notified Li Restrepo NP for Dr. Murray of critical Hgb. Li ordered STAT redraw of CBC and to call results to her. Addendum: 04/12/19 at 0652 by Vane Mccoy RN ENTERED IN ERROR
[2019-04-12 05:25] LABS: BASOPHILS % 0.2 % (0.0-1.0); EOSINOPHILS # (AUTO) 0.1 (0.0-0.4); EOSINOPHILS % 0.7 % (0.0-6.0); HEMATOCRIT 25.9 % (38.2-49.6); INR 0.99; LYMPHOCYTES # (AUTO) 1.1 (1.0-3.2); LYMPHOCYTES % 6.4 % (18.0-39.1); MEAN CORPUSCULAR HEMOGLOBIN 28.7 pg (28-32); MEAN CORPUSCULAR HGB CONC 30.9 g/dL (31-35); MEAN CORPUSCULAR VOLUME 92.8 fL (81-99); MONOCYTES # (AUTO) 1.2 (0.2-0.8); MONOCYTES % 6.7 % (4.4-11.3); NEUTROPHILS # (AUTO) 14.7 (2.1-6.9); NEUTROPHILS % 85.2 % (38.7-80.0); PLATELET COUNT 324 x10e3/uL (140-360); PROTHROMBIN TIME 13.6 seconds (11.9-14.5); RED BLOOD COUNT 2.79 x10e6/uL (4.3-5.7)
[2019-04-12 05:36] LABS: ALANINE AMINOTRANSFERASE 14 IU/L (0-55); ALBUMIN 1.9 g/dL (3.5-5.0); ALBUMIN/GLOBULIN RATIO 0.4 (0.8-2.0); ALKALINE PHOSPHATASE 78 IU/L (40-150); ANION GAP 11.6 mmol/L (8-16); BLOOD UREA NITROGEN 13 mg/dL (7-26); BUN/CREATININE RATIO 27 (6-25); CALCIUM 8.9 mg/dL (8.4-10.2); CARBON DIOXIDE 27 mmol/L (22-29); CHLORIDE 104 mmol/L (98-107); CREATININE, SERUM 0.48 mg/dL (0.72-1.25); EST GLOMERULAR FILTRATION RATE > 60 ML/MIN (60-); GLUCOSE 108 mg/dL (74-118); POTASSIUM 3.6 mmol/L (3.5-5.1); SODIUM 139 mmol/L (136-145)
[2019-04-12] MEDS: CLONAZEPAM 0.5 MG TAB GT SCH ×3 (06:09→16:19)
[2019-04-12] MEDS: BUSPIRONE HCL 5 MG TAB GT SCH ×3 (06:09→20:25)
[2019-04-12] MEDS: HEPARIN SOD (PORCINE) 5,000 UNIT/ML VIAL SC SCH ×3 (06:11→21:21)
--- NOTE | 2019-04-12 06:11 | Diagnostic Imaging Report ---
EXAMINATION: CHEST SINGLE (PORTABLE) COMPARISON: Chest x-ray 04/11/2019 INDICATION: Pneumonia DISCUSSION: Frontal view of the chest obtained at 0532 hours. HEART AND MEDIASTINUM: The cardiomediastinal silhouette is unremarkable. LINES: Tracheostomy is in appropriate position. LUNGS: Diffuse pulmonary hyperinflation. Right lower lobe consolidation is stable. No new findings in the left lung. PLEURA: Small right pleural effusion. No left pleural effusion. No pneumothorax BONES AND SOFT TISSUES: No focal osseous lesion. The soft tissues are normal. IMPRESSION: No change in right lower lobe consolidation. No new cardiopulmonary findings. Signed by: Dr. Juve Gonzales MD on 04/12/2019 6:08 AM
[2019-04-12 08:06] LABS: CREATINE KINASE 29 IU/L (30-200)
--- NOTE | 2019-04-12 08:09 | NUR ---
[facility]
[2019-04-12] MEDS: IRON SUCROSE 100 MG in SODIUM CHLORIDE 0.9% 100 ML 100 ML IV SCH (08:44)
[2019-04-12] MEDS: FAMOTIDINE 20 MG TAB PO SCH ×2 (08:44→16:18)
[2019-04-12] MEDS: FOLIC ACID 1 MG TAB GT SCH (08:45)
[2019-04-12] MEDS: DONEPEZIL HCL 5 MG TAB GT SCH (08:45)
[2019-04-12] MEDS: MULTIVITAMINS/MINERALS TAB GT SCH (08:45)
[2019-04-12] MEDS: LEVETIRACETAM 500 MG TAB GT SCH ×2 (08:45→19:40)
[2019-04-12] MEDS: CHOLECALCIFEROL 1,000 UNIT TAB GT SCH (08:46)
[2019-04-12] MEDS: HYDROCODONE/APAP 5MG-325MG TAB GT PRN (08:48)
[2019-04-12] MEDS: METOPROLOL TARTRATE 25 MG TAB GT SCH ×2 (09:00→20:09)
[2019-04-12] MEDS: BRIMONIDINE TARTRATE (OPTH) 5 ML LIQD OP SCH ×2 (09:00→16:30)
[2019-04-12] MEDS: LIDOCAINE 5% PATCH TP SCH (09:36)
[2019-04-12] MEDS: BALSAM PERU/CASTOR OIL 60 GM OINT...G. TP SCH (09:36)
--- NOTE | 2019-04-12 11:13 | NUR ---
Nutrition Intervention Note RD Recommendation(s) for Physician: The patient meets criteria for unspecified SEVERE protein-calorie malnutrition. - Rec changing continuous TF to Vital AF 1.2, advance as tolerated to goal rate of 50mL/hr, providing 1440kcal, 90g protein, 973mL water. - Water flushes per MD - Check daily labs, GI tolerance, weight Plan of Care: RD following, monitoring for tolerance and adequacy, TF rec Nutrition reason for involvement: MD Consult - tube feeding RD Assessment 04/12 - 43 yo M, who was admitted for leakage of endotracheal tube. Currently mechanically ventilated. Present with PEG. Called [facility] to obtain tube feed information. Pt was getting Isosource 1.5 @65ml/hr (2340kcal, 106g protein) through PEG. Last weight check at the facility was on 04/10, weighted at 93lbs. Visited pt in the room. Pt is awake but non-verbal. Pt is agreeable with physical assessment. Pt appears cachectic with severe muscle and fat loss. No family present on bedside. TF was running with Jevity 1.2 @45mL/hr. No pressor meds noted. Will communicate TF rec with RN. Principal Problems/Diagnoses: anemia, chronic repsiratory failure, ventilator dependent PNA PMH: Aphasia, dementia, trach/ PEG dependent GI: + PEG Skin: no pressure ulcer noted Labs: (04/12) creatinine 0.48 L Meds: vitamin D3, MVi w/minerals, folic acid, pepcid, heparin, abx Ht: 69in Wt: 93lb (verified with [facility]) BMI: 13.7kg/m2 IBW: 160lb +/- 10% Malnutrition Evaluation (04/12/2019) The patient meets criteria for unspecified SEVERE protein-calorie malnutrition. Energy intake: <75% of estimated energy requirements for >3 months Weight loss: Unknown Fat loss: Severe - apparent ribs, hollow look around orbital region Muscle loss: Severe - temporal depression, squaring of shoulder, apparent ribs, clavicle protrusion Supporting Evidence: Fluid accumulation: None Functional Status: unable to evaluate Nutrition Prescription (Diet Order): Jevity 1.2 @55mL/hr Estimated Nutritional Needs (VENTILATED): Calories: 1260 - 1470kcal (30-35kcal/kg/d) Weight used : CBW Protein : 63 - 105g(1.5-2.5g/kg/d) Weight used: CBW Diet Adequacy: Not meeting calorie needs, Not meeting protein needs Diet Education Needs Assessment: Diet education not indicated. Nutrition Care Level: high Nutrition Diagnosis: Severe malnutrition related inadequate energy intake as evidenced by <75% of estimated energy requirements for >3 months and severe muscle/ fat loss upon NFPA. Goal: Patient will meet 75-100% of estimated needs by follow up Progress: Progressing Interventions: Composition, Rate, Route, IVF, Prescription medications, Multivitamin/mineral supplement therapy Monitoring/Evaluation: Total energy intake, Total protein intake, Formula/Solution, IVF, Prescription medication, Weight change, Labs, Gastric tolerance Signed: Pat Shane, MS, RD, LD
[2019-04-12] MEDS: FERROUS SULFATE 300 MG/5 ML LIQD GT SCH ×2 (11:58→16:19)
[2019-04-12] MEDS: THIAMINE HCL 100 MG TAB PO SCH (11:58)
[2019-04-12] MEDS ORDERED: FUROSEMIDE INJ 10 MG/ML 2 ML VIAL IV ONE (13:30)
[2019-04-12 14:10] LABS: CREATINE KINASE MB 1.9 ng/mL (0-5.0)
--- NOTE | 2019-04-12 14:32 | NUR ---
DISCUSSED IN BARRIER ROUNDS GETTING CT OF CHEST AND BRAIN TODAY
--- NOTE | 2019-04-12 16:32 | Diagnostic Imaging Report ---
History:cerebral ataxia Comparison studies: None Technique: Axial images were obtained from the skull base to the vertex. Coronal and sagittal images reconstructed from the axial data. Dose modulation, iterative reconstruction, and/or weight based adjustment of the mA/kV was utilized to reduce the radiation dose to as low as reasonably achievable. Intravenous contrast: None Findings: Scalp/skull: No abnormalities. Extra-axial spaces: No masses. No fluid collections. Brain sulci: Mildly prominent in the hemispheres, moderate throughout the posterior fossa. Ventricles: Mild compensatory dilatation. No hydrocephalus. Parenchyma: Describe hypodensities in the supratentorial white matter are small vessel ischemic changes. No masses, hemorrhage, acute or chronic cortical vascular insults. Sellar/suprasellar region: No abnormalities. Craniocervical junction: Patent foramen magnum. No Chiari one malformation. Incidental findings: Atherosclerotic calcifications in the carotid siphons . Impression: No acute abnormalities. Chronic findings: 1. Moderate cerebellar volume loss may be consistent chronic intake of anticonvulsive medications if it correlates with patient's history. If not, consider familial or degenerative etiologies. 2. Superimposed mild hemispheric age-related volume loss. Signed by: Dr. Jorge Ackerman M.D. on 04/12/2019 4:28 PM
--- NOTE | 2019-04-12 17:03 | Diagnostic Imaging Report ---
EXAM: CT Chest WITHOUT intravenous contrast 04/12/2019 8:38 AM INDICATION: Concern for pneumonia COMPARISON: Chest radiograph of 04/12/2019 and 04/11/2019 TECHNIQUE: Chest was scanned utilizing a multidetector helical scanner from the lung apex through the level of the adrenal glands without administration of IV contrast. Coronal and sagittal reformations were obtained. Routine protocol was performed. IV CONTRAST: None RADIATION DOSE: Total DLP: 1124.22 mGy*cm. Dose modulation, iterative reconstruction, and/or weight based adjustment of the mA/kV was utilized to reduce the radiation dose to as low as reasonably achievable. COMPLICATIONS: None FINDINGS: LINES/ TUBES: Tracheostomy tube terminates approximately 4 cm above the missy. LUNGS AND AIRWAYS: There is dependent layering sediment in the distal trachea at the level of the missy extending into the right mainstem bronchus and all of the right lobar and segmental bronchi, consistent with aspirated material. The central airways on the left appear patent. There is near complete consolidation of the right lower lobe with associated volume loss. There are adjacent tree-in-bud opacities in the remaining aerated portion of the superior segment of the right lower lobe. Scattered tree-in-bud nodular opacities also involve the dependent portions of the right upper and middle lobes as well as left lower lobe. Several mucous and sediment filled dilated subsegmental bronchi at the left lower lobe. There are emphysematous changes at the right lung apex and emphysematous blebbing at the medial portion of the left upper lobe. Suture material and scar tissue at the medial left upper lobe, consistent with prior resection. PLEURA: The pleural spaces are clear. HEART AND MEDIASTINUM: The thyroid gland is normal. No mediastinal, hilar or axillary lymphadenopathy. Likely enlarged left hilar lymph node measuring up to 12 mm short axis.. The heart is not enlarged. No pericardial effusion. UPPER ABDOMEN: Limited non-contrast views of the upper abdomen show no abnormality within the visualized liver, spleen, pancreas, or kidneys. The adrenal glands are normal. BONES: No acute fracture or dislocation. No suspicious lytic or blastic lesions. SOFT TISSUES: Unremarkable. IMPRESSION: Extensive right lower lobe consolidation and tree-in-bud and nodular opacities involving the dependent portions of the right upper and middle lobes and left lower lobe. Extensive plugging of the right lobar and segmental bronchi and left lower lobe bronchi with sediment. Findings are consistent with multifocal aspiration pneumonia. Signed by: Juvencio Vazquez MD on 04/12/2019 4:59 PM
--- NOTE | 2019-04-12 17:38 | History and Physical ---
HISTORY OF PRESENT ILLNESS: A 43-year-old unfortunate male, who has a past medical history positive for CVA, on chronic ventilator support, history of seizure disorder, came here to the hospital, transferred from the [facility] due to apparent a leak around the endotracheal tissue. He was found to be tachypneic, tachycardic. He was found to be anemic also. He received blood transfusions and he was admitted to Intensive Care Unit. REVIEW OF SYSTEMS: The patient of course cannot give me any information because he is on the ventilator machine. ALLERGIES: NOT ALLERGIC TO ANY MEDICATION. PAST MEDICAL HISTORY: Positive for chronic respiratory failure, CVA, seizure disorder, moderate protein calorie malnutrition. PHYSICAL EXAMINATION: HEART: Showed regular rhythm. Normal S1, S2 sound. LUNGS: Clear bilaterally. ABDOMEN: Soft. Has a PEG tube in place. EXTREMITIES: Show atrophy in both lower extremities. VITAL SIGNS: Blood pressure 114/89, temperature 97.9, heart rate 108 per minute, respiratory rate 18 per minute, and oxygen saturation 100%. LABORATORY DATA: BMP; sodium 139, potassium 3.6, chloride 104, CO2 27, BUN 13, creatinine 0.48, glucose 108. CBC; white count is elevated at 17,100, hemoglobin 8.0, hematocrit 25.9, platelet count 384,000. PT 13.6, PTT 50.4, INR 0.99. AST 11, ALT 14, total bilirubin 0.4, alkaline phosphatase 78. Chest x-ray showed right lower lobe pneumonia. FINAL IMPRESSION: 1. Aspiration pneumonia. 2. Acute anemia. 3. Chronic respiratory failure. 4. Seizure disorder. 5. History of old cerebrovascular accident. 6. Moderate protein calorie malnutrition. 7. Dysphagia, on percutaneous endoscopic gastrostomy tube feedings. PLAN OF TREATMENT: 1. Continue ventilator support. 2. Continue the current PEG tube feedings. 3. Continue albuterol and Atrovent q.6 hours. 4. Cefepime 2 g IV twice a day. 5. Vancomycin 1 g IV twice a day. 6. Continue iron sucrose once every 24 hours. 7. Brimonidine tartrate twice a day. 8. Folic acid 1 mg daily. 9. Latanoprost one drop to each eye at bedtime. 10. Sertraline 100 mg daily. 11. Loperamide 2 mg twice a day as needed for diarrhea. 12. [place] 1 tablet q.6 hours as needed for severe pain. 13. Continue Pepcid 20 mg twice a day. 14. BuSpar 10 mg q.8 hours for anxiety. 15. Continue heparin 5000 units subcutaneously q.8 hours for DVT prophylaxis. 16. Continue Keppra 250 mg twice a day. 17. Tramadol 50 mg q.6 hours as needed for pain. 18. Clonazepam 0.5 mg twice a day. 19. Continue Lidoderm patch 12 hours on, 12 hours off. 20. Continue Balsam [place]-castor oil one application 2 g daily. 21. Continue vitamin D 5000 units daily. 22. Continue albuterol and Atrovent q.4 hours around the clock. 23. Continue metoprolol 12.5 mg twice a day through PEG tube. 24. Continue tramadol 100 mg q.6 hours. 25. Continue Tylenol 1000 mg IV q.6 hours as needed. 26. Continue Aricept 5 mg daily. 27. Lactulose 20 g twice a day. 28. Multivitamin one tablet daily. 29. Ferrous sulfate 325 mg twice a day. 30. Thiamine 50 mg daily. We are going to follow up CBC tomorrow. Continue on current IV antibiotic therapy. Blood culture has been ordered, report is pending. UA, urine culture have been ordered, report is pending. The patient has remained on the ventilator machine. Dr. Jose David Narayan has been consulted from a Gastroenterology point of view as part of the workup for anemia. Stool guaiac has been ordered. Also, Dr. Adams has been consulted from the Pulmonary point of view. MD RANJAN Mendez/ARNULFO /[id number]
[2019-04-12] MEDS: ACETAMINOPHEN 1000 MG/100 ML IV PRN (18:23)
[2019-04-12] MEDS: SERTRALINE HCL 100 MG TAB GT SCH (20:25)
[2019-04-12] MEDS: LATANOPROST(OPTH) 2.5 ML BTL OP SCH (20:25)
[2019-04-13] VITALS (25 sets, daily range): BP systolic 98–125; BP diastolic 55–98
[2019-04-13] MEDS: CEFEPIME 2 GM/NS 0.9% 100 ML 100 ML IV SCH ×2 (02:26→15:26)
[2019-04-13] MEDS: ALBUTEROL/IPRATROPIUM 3 ML NEB NEB SCH ×4 (02:40→19:05)
[2019-04-13] MEDS: HYDROCODONE/APAP 5MG-325MG TAB GT PRN ×4 (02:43→21:14)
[2019-04-13] MEDS: VANCOMYCIN 1GM/NS 250 ML 250 ML IV SCH ×2 (03:04→15:23)
[2019-04-13] MEDS: BUSPIRONE HCL 5 MG TAB GT SCH ×3 (05:04→20:36)
[2019-04-13] MEDS: HEPARIN SOD (PORCINE) 5,000 UNIT/ML VIAL SC SCH ×3 (05:05→21:14)
[2019-04-13] MEDS: LEVETIRACETAM 500 MG TAB GT SCH ×2 (07:04→17:13)
[2019-04-13 08:17] LABS: BASOPHILS % 0.2 % (0.0-1.0); EOSINOPHILS # (AUTO) 0.1 (0.0-0.4); EOSINOPHILS % 0.4 % (0.0-6.0); HEMATOCRIT 27.7 % (38.2-49.6); HEMOGLOBIN 8.6 g/dL (14.0-18.0); LYMPHOCYTES # (AUTO) 0.8 (1.0-3.2); LYMPHOCYTES % 4.2 % (18.0-39.1); MEAN CORPUSCULAR HEMOGLOBIN 28.6 pg (28-32); MONOCYTES # (AUTO) 1.5 (0.2-0.8); MONOCYTES % 8.2 % (4.4-11.3); NEUTROPHILS # (AUTO) 15.5 (2.1-6.9); NEUTROPHILS % 86.3 % (38.7-80.0); PLATELET COUNT 326 x10e3/uL (140-360); RED BLOOD COUNT 3.01 x10e6/uL (4.3-5.7)
[2019-04-13] MEDS: BRIMONIDINE TARTRATE (OPTH) 5 ML LIQD OP SCH ×2 (08:35→17:12)
[2019-04-13] MEDS: IRON SUCROSE 100 MG in SODIUM CHLORIDE 0.9% 100 ML 100 ML IV SCH (08:35)
[2019-04-13] MEDS: FERROUS SULFATE 300 MG/5 ML LIQD GT SCH ×2 (08:35→17:12)
[2019-04-13] MEDS: THIAMINE HCL 100 MG TAB PO SCH (08:35)
[2019-04-13] MEDS: CLONAZEPAM 0.5 MG TAB GT SCH ×2 (08:35→17:12)
[2019-04-13] MEDS: FAMOTIDINE 20 MG TAB PO SCH ×2 (08:35→17:12)
[2019-04-13] MEDS: DONEPEZIL HCL 5 MG TAB GT SCH (08:35)
[2019-04-13] MEDS: FOLIC ACID 1 MG TAB GT SCH (08:35)
[2019-04-13] MEDS: TRAMADOL HCL 50 MG TAB GT PRN (08:35)
[2019-04-13] MEDS: MULTIVITAMINS/MINERALS TAB GT SCH (08:35)
[2019-04-13] MEDS: METOPROLOL TARTRATE 25 MG TAB GT SCH ×2 (08:35→20:35)
[2019-04-13] MEDS: LIDOCAINE 5% PATCH TP SCH (08:35)
[2019-04-13] MEDS: CHOLECALCIFEROL 1,000 UNIT TAB GT SCH (08:35)
--- NOTE | 2019-04-13 08:38 | Diagnostic Imaging Report ---
EXAMINATION: CHEST SINGLE (PORTABLE) INDICATION: ^PNA/VENT ^[id number] ^[id number] COMPARISON: 04/12/2019 FINDINGS: AP view TUBES and LINES: Stable tracheostomy tube. LUNGS and pleura: Lungs are well inflated. Pulmonary vascular congestion. Not significantly changed right mid to lower lung field opacification. No visible pneumothorax. HEART AND MEDIASTINUM: The cardiomediastinal silhouette is unremarkable. BONES AND SOFT TISSUES: No acute osseous lesion. Soft tissues are unremarkable. UPPER ABDOMEN: No free air under the diaphragm. IMPRESSION: Pulmonary vascular congestion Not significant change right lung opacification, representing pneumonia and possible small effusion. Signed by: Dr. Talha Garcia MD on 04/13/2019 8:34 AM
[2019-04-13] MEDS: BALSAM PERU/CASTOR OIL 60 GM OINT...G. TP SCH (09:00)
--- NOTE | 2019-04-13 17:02 | Progress Note ---
DATE: 04/13/2019 Internal Medicine Progress Note SUBJECTIVE: The patient is still on ventilator, which he is chronically connected to the ventilator. PHYSICAL EXAMINATION: VITAL SIGNS: Blood pressure 118/81, temperature 98.5, heart rate 82 per minute, respiratory rate 27 per minute, oxygen saturation 100%. HEART: Showed regular rhythm. Normal S1, S2 sound. LUNGS: Clear bilaterally. ABDOMEN: Soft. He had a PEG tube in place. EXTREMITIES: Show atrophy in upper and lower extremities. LABORATORY DATA: On the BMP; sodium 139, potassium 3.6, chloride 104, CO2 of 27, BUN 13, creatinine 0.48, glucose 108. [place] [address], hemoglobin 8.6, hematocrit 27.7, platelet count 336,000. PT 13.6, INR 0.99, PTT 50.4. AST 11, ALT 14, total bilirubin 0.4, alkaline phosphatase 78. IMPRESSION: 1. Aspiration pneumonia. 2. Chronic respiratory failure. 3. Acute anemia. 4. Seizure disorder. 5. History of old cerebrovascular accident. 6. Moderate protein-calorie malnutrition. 7. Dysphagia. PLAN OF TREATMENT: Continue ventilator support. Continue albuterol and Atrovent q.6 hours. Continue cefepime twice a day, vancomycin twice a day. The patient is growing gram-positive cocci in the blood culture. We are going to be waiting for the final report. Continue iron sucrose q.24 hours. Continue brimonidine tartrate twice a day, folic acid 1 mg daily, latanoprost one drop to each eye at bedtime, sertraline 100 mg daily, loperamide 2 mg twice a day as needed for diarrhea, clonazepam 0.5 mg twice a day as needed, Pepcid 20 mg twice a day, BuSpar 10 mg q.8 hours as needed, heparin 5000 units subcutaneous q.8 hours for DVT prophylaxis, Keppra 250 mg twice a day for seizures, tramadol 50 mg q.6 hours as needed, lidocaine patch 12 hours on, 12 hours off, Balsam [place]/castor oil to be applied to the pain area 2 g once a day, cholecalciferol 5000 units daily, albuterol and Atrovent every 4 hours around the clock, metoprolol 12.5 mg twice a day, tramadol 100 mg q.6 hours, thiamine 50 mg daily, bisacodyl suppository 10 mg daily as needed, donepezil 5 mg daily, lactulose 20 g twice a day, multivitamin one tablet daily, ferrous sulfate 300 mg twice a day, and [place] 1 tablet q.6 hours as needed. We are going to do a followup on blood cultures. Continue current antibiotic regimen. MD RANJAN Mendez/ARNULFO /[id number]
--- NOTE | 2019-04-13 19:45 | NUR ---
Page out to Toni Narayan to notify of positive occult blood in stool.
[2019-04-13] MEDS: SERTRALINE HCL 100 MG TAB GT SCH (20:36)
[2019-04-13] MEDS: LATANOPROST(OPTH) 2.5 ML BTL OP SCH (20:36)
[2019-04-14] VITALS (26 sets, daily range): BP systolic 99–139; BP diastolic 69–96
--- NOTE | 2019-04-14 00:14 | NUR ---
Dr. Toni ward, aware of positive occult stool. No further orders noted at this time.
[2019-04-14] MEDS: ALBUTEROL/IPRATROPIUM 3 ML NEB NEB SCH ×4 (02:19→19:15)
[2019-04-14] MEDS: CEFEPIME 2 GM/NS 0.9% 100 ML 100 ML IV SCH ×2 (02:31→15:15)
[2019-04-14] MEDS: HYDROCODONE/APAP 5MG-325MG TAB GT PRN ×3 (02:36→21:18)
[2019-04-14] MEDS: VANCOMYCIN 1GM/NS 250 ML 250 ML IV SCH ×2 (03:10→15:30)
[2019-04-14 04:49] LABS: BASOPHILS % 0.1 % (0.0-1.0); EOSINOPHILS # (AUTO) 0.1 (0.0-0.4); EOSINOPHILS % 0.8 % (0.0-6.0); HEMOGLOBIN 7.6 g/dL (14.0-18.0); MEAN CORPUSCULAR HEMOGLOBIN 28.4 pg (28-32); MEAN CORPUSCULAR HGB CONC 30.4 g/dL (31-35); MEAN CORPUSCULAR VOLUME 93.3 fL (81-99); MONOCYTES # (AUTO) 1.1 (0.2-0.8); MONOCYTES % 7.7 % (4.4-11.3); NEUTROPHILS # (AUTO) 12.1 (2.1-6.9); NEUTROPHILS % 83.6 % (38.7-80.0); PLATELET COUNT 291 x10e3/uL (140-360); RED BLOOD COUNT 2.68 x10e6/uL (4.3-5.7); RED CELL DISTRIBUTION WIDTH 14.1 % (11.7-14.4)
[2019-04-14 05:03] LABS: ANION GAP 11.2 mmol/L (8-16); BLOOD UREA NITROGEN 10 mg/dL (7-26); BUN/CREATININE RATIO 23 (6-25); CALCIUM 8.9 mg/dL (8.4-10.2); CARBON DIOXIDE 29 mmol/L (22-29); CHLORIDE 104 mmol/L (98-107); CREATININE, SERUM 0.44 mg/dL (0.72-1.25); EST GLOMERULAR FILTRATION RATE > 60 ML/MIN (60-); GLUCOSE 100 mg/dL (74-118); POTASSIUM 4.2 mmol/L (3.5-5.1); SODIUM 140 mmol/L (136-145)
[2019-04-14] MEDS: BUSPIRONE HCL 5 MG TAB GT SCH ×3 (05:16→21:16)
[2019-04-14] MEDS: HEPARIN SOD (PORCINE) 5,000 UNIT/ML VIAL SC SCH ×3 (05:18→21:17)
--- NOTE | 2019-04-14 06:04 | NUR ---
Dr. Lee notified of pt's hgb of 7.6, no new orders at this time.
[2019-04-14] MEDS: FAMOTIDINE 20 MG TAB PO SCH ×2 (08:01→17:35)
[2019-04-14] MEDS: LEVETIRACETAM 500 MG TAB GT SCH ×2 (08:01→19:02)
[2019-04-14] MEDS: IRON SUCROSE 100 MG in SODIUM CHLORIDE 0.9% 100 ML 100 ML IV SCH (08:01)
[2019-04-14] MEDS: DONEPEZIL HCL 5 MG TAB GT SCH (08:02)
[2019-04-14] MEDS: FERROUS SULFATE 300 MG/5 ML LIQD GT SCH ×2 (08:02→17:35)
[2019-04-14] MEDS: FOLIC ACID 1 MG TAB GT SCH (08:02)
[2019-04-14] MEDS: CLONAZEPAM 0.5 MG TAB GT SCH ×2 (08:02→17:35)
[2019-04-14] MEDS: CHOLECALCIFEROL 1,000 UNIT TAB GT SCH (08:03)
[2019-04-14] MEDS: METOPROLOL TARTRATE 25 MG TAB GT SCH ×2 (08:03→21:15)
[2019-04-14] MEDS: MULTIVITAMINS/MINERALS TAB GT SCH (08:03)
[2019-04-14] MEDS: THIAMINE HCL 100 MG TAB PO SCH (08:04)
[2019-04-14] MEDS: LIDOCAINE 5% PATCH TP SCH (08:04)
[2019-04-14] MEDS: TRAMADOL HCL 50 MG TAB GT PRN ×2 (08:04→17:28)
[2019-04-14] MEDS: BRIMONIDINE TARTRATE (OPTH) 5 ML LIQD OP SCH ×2 (08:04→17:35)
[2019-04-14] MEDS: BALSAM PERU/CASTOR OIL 60 GM OINT...G. TP SCH (08:04)
--- NOTE | 2019-04-14 10:25 | Diagnostic Imaging Report ---
EXAMINATION: CHEST SINGLE (PORTABLE) INDICATION: ^vent/trach COMPARISON: Chest radiograph 04/13/[address] chest 04/12/2019 FINDINGS: AP view TUBES and LINES: Tracheostomy tube remains in place. LUNGS: Lungs are well inflated. Unchanged large right greater than left lower lobe consolidations consistent with aspiration pneumonitis. PLEURA: Small right pleural effusion, unchanged. HEART AND MEDIASTINUM: The cardiomediastinal silhouette is unremarkable. BONES AND SOFT TISSUES: No acute osseous lesion. Soft tissues are unremarkable. UPPER ABDOMEN: No free air under the diaphragm. IMPRESSION: Stable bilateral lower lobes, right greater than left, aspiration pneumonitis and small right pleural effusion. Signed by: Dr. Cecelia King M.D. on 04/14/2019 10:22 AM
--- NOTE | 2019-04-14 14:01 | Progress Note ---
DATE: 04/14/2019 Internal Medicine Progress Note SUBJECTIVE: The patient had episode of low oxygen, he is back to normal now. PHYSICAL EXAMINATION: VITAL SIGNS: Blood pressure 113/81, temperature 98.0, heart rate 79 per minute, respiratory rate 16 per minute, oxygen saturation 100%. HEART: Showed regular rhythm. Normal S1, S2 sound. LUNGS: Clear bilaterally. ABDOMEN: Soft. Has a PEG tube in place. EXTREMITIES: Show atrophy in upper and lower extremities. LABORATORY STUDIES: On the blood work, we have BMP; sodium 140, potassium 4.2, chloride 104, CO2 29, BUN 10, creatinine 0.44, glucose 107. On CBC, white blood count 14,400, hemoglobin 7.6, hematocrit 25.0, and platelet count 281,000. PT 13.6, PTT 50.4, INR 0.99. AST 11, ALT 14, total bilirubin 0.4, alkaline phosphatase 78. FINAL IMPRESSION: 1. Chronic respiratory failure. 2. Aspiration pneumonia. 3. Acute anemia. 4. Seizure disorder. 5. Status post old cerebrovascular accident. 6. Moderate protein calorie malnutrition. 7. Dysphagia. PLAN OF TREATMENT: We are going to continue albuterol and Atrovent q.6 hours. Continue cefepime 2 g IV twice a day, vancomycin 1 g IV twice a day, continue IV infusion, continue brimonidine tartrate twice a day, folic acid 1 mg daily, latanoprost one drop to each eye at bedtime, sertraline 100 mg daily, loperamide 2 mg twice a day as needed, clonazepam 0.5 mg twice a day, Pepcid 20 mg twice a day, BuSpar 10 mg q.8 hours, heparin 5000 units subcutaneous q.8 hours for DVT prophylaxis, Keppra 250 mg twice a day, tramadol 50 mg q.6 hours, Lidoderm patch 12 hours on 12 hours off as needed for pain, Balsam [place]/castor oil one application daily of 2 g daily, vitamin D 50,000 units daily, albuterol and Atrovent q.4 hours, metoprolol 12.5 mg twice a day, tramadol 100 mg q.6 hours, thiamine 50 mg daily, dulcolax 10 mg daily, donepezil 5 mg daily, lactulose 20 g twice a day, multivitamin one tablet daily, ferrous sulfate 300 mg twice a day, [place] 1 tablet q.6 hours as needed, Case discussed with nurse, time spent 1 hour. MD RANJAN Mendez/ARNULFO /[id number]
[2019-04-14] MEDS: SERTRALINE HCL 100 MG TAB GT SCH (21:16)
[2019-04-14] MEDS: LATANOPROST(OPTH) 2.5 ML BTL OP SCH (21:16)
[2019-04-15] VITALS (25 sets, daily range): BP systolic 102–136; BP diastolic 58–100
[2019-04-15] MEDS: ALBUTEROL/IPRATROPIUM 3 ML NEB NEB SCH ×4 (02:32→19:22)
[2019-04-15] MEDS: CEFEPIME 2 GM/NS 0.9% 100 ML 100 ML IV SCH ×2 (02:59→15:10)
[2019-04-15] MEDS: VANCOMYCIN 1GM/NS 250 ML 250 ML IV SCH ×2 (03:15→16:32)
[2019-04-15 05:10] LABS: BASOPHILS % 0.1 % (0.0-1.0); EOSINOPHILS # (AUTO) 0.2 (0.0-0.4); EOSINOPHILS % 1.2 % (0.0-6.0); HEMATOCRIT 25.7 % (38.2-49.6); MEAN CORPUSCULAR HEMOGLOBIN 28.9 pg (28-32); MEAN CORPUSCULAR HGB CONC 31.1 g/dL (31-35); MEAN CORPUSCULAR VOLUME 92.8 fL (81-99); MONOCYTES # (AUTO) 0.9 (0.2-0.8); MONOCYTES % 6.5 % (4.4-11.3); NEUTROPHILS # (AUTO) 12.2 (2.1-6.9); PLATELET COUNT 311 x10e3/uL (140-360); RED BLOOD COUNT 2.77 x10e6/uL (4.3-5.7)
[2019-04-15] MEDS: HEPARIN SOD (PORCINE) 5,000 UNIT/ML VIAL SC SCH ×3 (05:23→21:38)
[2019-04-15] MEDS: BUSPIRONE HCL 5 MG TAB GT SCH ×3 (05:23→21:37)
[2019-04-15 05:25] LABS: ANION GAP 10.1 mmol/L (8-16); BLOOD UREA NITROGEN 12 mg/dL (7-26); BUN/CREATININE RATIO 27 (6-25); CALCIUM 9.2 mg/dL (8.4-10.2); CARBON DIOXIDE 28 mmol/L (22-29); CHLORIDE 103 mmol/L (98-107); CREATININE, SERUM 0.45 mg/dL (0.72-1.25); EST GLOMERULAR FILTRATION RATE > 60 ML/MIN (60-); GLUCOSE 104 mg/dL (74-118); POTASSIUM 4.1 mmol/L (3.5-5.1); SODIUM 137 mmol/L (136-145)
[2019-04-15] MEDS: LEVETIRACETAM 500 MG TAB GT SCH ×2 (06:00→19:18)
[2019-04-15] MEDS: IRON SUCROSE 100 MG in SODIUM CHLORIDE 0.9% 100 ML 100 ML IV SCH (08:22)
[2019-04-15] MEDS: FAMOTIDINE 20 MG TAB PO SCH ×2 (08:22→16:37)
[2019-04-15] MEDS: FOLIC ACID 1 MG TAB GT SCH (08:23)
[2019-04-15] MEDS: METOPROLOL TARTRATE 25 MG TAB GT SCH ×2 (08:23→21:36)
[2019-04-15] MEDS: DONEPEZIL HCL 5 MG TAB GT SCH (08:23)
[2019-04-15] MEDS: CLONAZEPAM 0.5 MG TAB GT SCH ×2 (08:23→16:37)
[2019-04-15] MEDS: MULTIVITAMINS/MINERALS TAB GT SCH (08:23)
[2019-04-15] MEDS: CHOLECALCIFEROL 1,000 UNIT TAB GT SCH (08:24)
[2019-04-15] MEDS: LIDOCAINE 5% PATCH TP SCH (08:27)
[2019-04-15] MEDS: FERROUS SULFATE 300 MG/5 ML LIQD GT SCH ×2 (08:27→16:37)
[2019-04-15] MEDS: BRIMONIDINE TARTRATE (OPTH) 5 ML LIQD OP SCH ×2 (08:27→16:37)
[2019-04-15] MEDS: BALSAM PERU/CASTOR OIL 60 GM OINT...G. TP SCH (08:27)
[2019-04-15] MEDS: THIAMINE HCL 100 MG TAB PO SCH (08:27)
[2019-04-15] MEDS: HYDROCODONE/APAP 5MG-325MG TAB GT PRN ×2 (11:16→19:45)
[2019-04-15] MEDS: TRAMADOL HCL 50 MG TAB GT PRN (15:25)
--- NOTE | 2019-04-15 21:00 | NUR ---
Pt refused to turn. Pt educated on importance of frequent turns to prevent skin breakdown. Patient verbalized understanding, is alert and oriented, but still refused turning and bathing.
[2019-04-15] MEDS: LATANOPROST(OPTH) 2.5 ML BTL OP SCH (21:37)
[2019-04-15] MEDS: SERTRALINE HCL 100 MG TAB GT SCH (21:37)
[2019-04-16] VITALS (26 sets, daily range): BP systolic 87–118; BP diastolic 55–92
[2019-04-16] MEDS: CEFEPIME 2 GM/NS 0.9% 100 ML 100 ML IV SCH ×2 (02:59→13:51)
[2019-04-16] MEDS: TRAMADOL HCL 50 MG TAB GT PRN ×3 (03:00→22:58)
[2019-04-16] MEDS: VANCOMYCIN 1GM/NS 250 ML 250 ML IV SCH ×2 (04:15→14:51)
[2019-04-16 05:02] LABS: BASOPHILS % 0.2 % (0.0-1.0); EOSINOPHILS # (AUTO) 0.2 (0.0-0.4); EOSINOPHILS % 1.5 % (0.0-6.0); HEMATOCRIT 26.2 % (38.2-49.6); HEMOGLOBIN 7.9 g/dL (14.0-18.0); LYMPHOCYTES # (AUTO) 0.9 (1.0-3.2); LYMPHOCYTES % 7.9 % (18.0-39.1); MEAN CORPUSCULAR HEMOGLOBIN 28.3 pg (28-32); MEAN CORPUSCULAR HGB CONC 30.2 g/dL (31-35); MEAN CORPUSCULAR VOLUME 93.9 fL (81-99); MONOCYTES # (AUTO) 0.8 (0.2-0.8); MONOCYTES % 6.8 % (4.4-11.3); NEUTROPHILS # (AUTO) 9.6 (2.1-6.9); NEUTROPHILS % 82.3 % (38.7-80.0); PLATELET COUNT 358 x10e3/uL (140-360); RED BLOOD COUNT 2.79 x10e6/uL (4.3-5.7); RED CELL DISTRIBUTION WIDTH 14.5 % (11.7-14.4)
[2019-04-16 05:25] LABS: BLOOD UREA NITROGEN 13 mg/dL (7-26); BUN/CREATININE RATIO 28 (6-25); CALCIUM 9.3 mg/dL (8.4-10.2); CARBON DIOXIDE 30 mmol/L (22-29); CHLORIDE 100 mmol/L (98-107); CREATININE, SERUM 0.46 mg/dL (0.72-1.25); EST GLOMERULAR FILTRATION RATE > 60 ML/MIN (60-); GLUCOSE 100 mg/dL (74-118); SODIUM 136 mmol/L (136-145)
[2019-04-16] MEDS: BUSPIRONE HCL 5 MG TAB GT SCH ×3 (05:39→22:00)
[2019-04-16] MEDS: HEPARIN SOD (PORCINE) 5,000 UNIT/ML VIAL SC SCH ×3 (05:41→22:00)
[2019-04-16] MEDS: ALBUTEROL/IPRATROPIUM 3 ML NEB NEB SCH ×4 (07:00→23:08)
[2019-04-16] MEDS: LEVETIRACETAM 500 MG TAB GT SCH ×2 (07:38→19:53)
[2019-04-16] MEDS: FAMOTIDINE 20 MG TAB PO SCH ×2 (07:38→16:16)
[2019-04-16] MEDS: HYDROCODONE/APAP 5MG-325MG TAB GT PRN ×2 (07:39→16:16)
[2019-04-16] MEDS: FERROUS SULFATE 300 MG/5 ML LIQD GT SCH ×2 (08:02→16:16)
[2019-04-16] MEDS: LIDOCAINE 5% PATCH TP SCH (08:02)
[2019-04-16] MEDS: CLONAZEPAM 0.5 MG TAB GT SCH ×2 (08:02→16:16)
[2019-04-16] MEDS: BALSAM PERU/CASTOR OIL 60 GM OINT...G. TP SCH (08:02)
[2019-04-16] MEDS: CHOLECALCIFEROL 1,000 UNIT TAB GT SCH (08:02)
[2019-04-16] MEDS: MULTIVITAMINS/MINERALS TAB GT SCH (08:02)
[2019-04-16] MEDS: BRIMONIDINE TARTRATE (OPTH) 5 ML LIQD OP SCH ×2 (08:02→16:16)
[2019-04-16] MEDS: FOLIC ACID 1 MG TAB GT SCH (08:02)
[2019-04-16] MEDS: METOPROLOL TARTRATE 25 MG TAB GT SCH ×2 (08:02→22:00)
[2019-04-16] MEDS: DONEPEZIL HCL 5 MG TAB GT SCH (08:02)
[2019-04-16] MEDS: THIAMINE HCL 100 MG TAB PO SCH (08:02)
[2019-04-16] MEDS: IRON SUCROSE 100 MG in SODIUM CHLORIDE 0.9% 100 ML 100 ML IV SCH (08:27)
--- NOTE | 2019-04-16 12:15 | NUR ---
ORDER FOR LTAC CHOICE LETTER SIGNED BY PT'S MOTHER (PT INTUBATED) SUKHI NIETO WITH [facility] NOTIFIED OF CONSULT
--- NOTE | 2019-04-16 13:36 | NUR ---
Nutrition Follow-up Note RD Recommendation(s) for Physician: The patient meets criteria for unspecified SEVERE protein-calorie malnutrition. - Continue TF with Vital AF 1.2 at goal rate of 50mL/hr, providing 1440kcal, 90g protein, 973mL water. - Water flushes per MD - Check daily labs, GI tolerance, weight Plan of Care: RD following, monitoring for tolerance and adequacy, TF rec Nutrition reason for involvement: Follow up RD Assessment 04/16 - Pt was discussed during AM rounds. Pt was awake, alert and oriented. CXR showed aspiration PNA. Trach to vent. Stable TF. LBM 04/15. Participating with PT. Placement pending. Labs and meds reviewed. Will continue to monitor and follow. 04/12 - 43 yo M, who was admitted for leakage of endotracheal tube. Currently mechanically ventilated. Present with PEG. Called [facility] to obtain tube feed information. Pt was getting Isosource 1.5 @65ml/hr (2340kcal, 106g protein) through PEG. Last weight check at the facility was on 04/10, weighted at 93lbs. Visited pt in the room. Pt is awake but non-verbal. Pt is agreeable with physical assessment. Pt appears cachectic with severe muscle and fat loss. No family present on bedside. TF was running with Jevity 1.2 @45mL/hr. No pressor meds noted. Will communicate TF rec with RN. Principal Problems/Diagnoses: anemia, chronic repsiratory failure, ventilator dependent PNA PMH: Aphasia, dementia, trach/ PEG dependent GI: + PEG, abdomen flat, soft, non-tender, flatus present Skin: no pressure ulcer noted Labs: (04/16) BUN 0.46 L (04/12) creatinine 0.48 L Meds: Thiamine, feosol, MVi w/ minerals, folic acid, vitamin D3, pepcid, heparin, abx Ht: 69in Wt: 93lb (verified with [facility]); 99lb BMI: 13.7kg/m2 IBW: 160lb +/- 10% Malnutrition Evaluation (04/12/2019) The patient meets criteria for unspecified SEVERE protein-calorie malnutrition. Energy intake: <75% of estimated energy requirements for >3 months Weight loss: Unknown Fat loss: Severe - apparent ribs, hollow look around orbital region Muscle loss: Severe - temporal depression, squaring of shoulder, apparent ribs, clavicle protrusion Supporting Evidence: Fluid accumulation: None Functional Status: unable to evaluate Nutrition Prescription (Diet Order): Vital AF 1.2 @50mL/hr Estimated Nutritional Needs (VENTILATED): Calories: 1260 - 1470kcal (30-35kcal/kg/d) Weight used : CBW Protein: 63 - 105g (1.5-2.5g/kg/d) Weight used: CBW Diet Adequacy: meeting calorie needs, meeting protein needs Diet Education Needs Assessment: Diet education not indicated. Nutrition Care Level: mod Nutrition Diagnosis: Severe malnutrition related inadequate energy intake as evidenced by <75% of estimated energy requirements for >3 months and severe muscle/ fat loss upon NFPA. Goal: Patient will meet 75-100% of estimated needs by follow up Progress: Goal met Interventions: Composition, Rate, Route, IVF, Prescription medications, Multivitamin/mineral supplement therapy Monitoring/Evaluation: Total energy intake, Total protein intake, Formula/Solution, IVF, Prescription medication, Weight change, Labs, Gastric tolerance Signed: Pat Shane, MS, RD, LD
--- NOTE | 2019-04-16 13:59 | NUR ---
MOT COMPLETED AND PLACED IN FRONT OF PT'S CHART ORDERS TO TRANSFER WHEN ACCEPTED SUKHI NIETO TO CALL NURSES STATION IF PT ACCEPTED
--- NOTE | 2019-04-16 14:18 | NUR ---
SPOKE WITH SUKHI NIETO WHO RAN PT'S DAYS AND STATES HE IS INTO [facility] RESERVE DAYS NO ACUTE DAYS AND NO SNF DAYS SHE WILL LET ME KNOW DETERMINATION
[2019-04-16] MEDS: LATANOPROST(OPTH) 2.5 ML BTL OP SCH (22:00)
[2019-04-16] MEDS: SERTRALINE HCL 100 MG TAB GT SCH (22:00)
--- NOTE | 2019-04-16 22:25 | NUR ---
Patient again educated on importance of frequent repositioning to prevent skin breakdown. Patient sometimes refuses Q2 turns. Pt is alert and oriented and verbalizes understanding of issues discussed.
[2019-04-17] VITALS (16 sets, daily range): BP systolic 84–138; BP diastolic 54–108
[2019-04-17] MEDS: CEFEPIME 2 GM/NS 0.9% 100 ML 100 ML IV SCH (02:06)
[2019-04-17] MEDS: VANCOMYCIN 1GM/NS 250 ML 250 ML IV SCH (03:15)
[2019-04-17] MEDS: HEPARIN SOD (PORCINE) 5,000 UNIT/ML VIAL SC SCH (05:53)
[2019-04-17] MEDS: BUSPIRONE HCL 5 MG TAB GT SCH (05:53)
[2019-04-17] MEDS: LEVETIRACETAM 500 MG TAB GT SCH (06:00)
--- NOTE | 2019-04-17 06:32 | NUR ---
Paged DR. Narayan regarding vanc trough. Awaiting return call.
[2019-04-17] MEDS: ALBUTEROL/IPRATROPIUM 3 ML NEB NEB SCH (07:00)
[2019-04-17] MEDS: FAMOTIDINE 20 MG TAB PO SCH (09:34)
[2019-04-17] MEDS: THIAMINE HCL 100 MG TAB PO SCH (09:40)
[2019-04-17] MEDS: BALSAM PERU/CASTOR OIL 60 GM OINT...G. TP SCH (09:40)
[2019-04-17] MEDS: LIDOCAINE 5% PATCH TP SCH (09:40)
[2019-04-17] MEDS: IRON SUCROSE 100 MG in SODIUM CHLORIDE 0.9% 100 ML 100 ML IV SCH (09:40)
[2019-04-17] MEDS: BRIMONIDINE TARTRATE (OPTH) 5 ML LIQD OP SCH (09:40)
[2019-04-17] MEDS: MULTIVITAMINS/MINERALS TAB GT SCH (09:41)
[2019-04-17] MEDS: FERROUS SULFATE 300 MG/5 ML LIQD GT SCH (09:41)
[2019-04-17] MEDS: CLONAZEPAM 0.5 MG TAB GT SCH (09:41)
[2019-04-17] MEDS: FOLIC ACID 1 MG TAB GT SCH (09:49)
[2019-04-17] MEDS: DONEPEZIL HCL 5 MG TAB GT SCH (09:50)
[2019-04-17] MEDS: CHOLECALCIFEROL 1,000 UNIT TAB GT SCH (10:21)
--- NOTE | 2019-04-17 12:08 | NUR ---
PT APPROVED TO GO TO [facility] ICU 9 MOT COMPLETE AND ON CHART NURSE PADMINI NOTIFIED OF NUMBER TO CALL REPORT TO PADMINI WILL NOTIFY PT'S MOTHER OF ROOM NUMBER
--- NOTE | 2019-04-17 13:40 | NUR ---
Report called to Nelson Jensen RN for ICU bed 9 at [facility].
--- NOTE | 2019-04-17 14:30 | NUR ---
Patient bathed and ambulance crew here to take patient to [facility] via ambulance. Patient's [place] blanket with patient. Mother, Kishore, made aware that he is transferring to [place] and message that she will be there to visit tomorrow given to patient.
== END 2019-04-17 14:00 | DRG 207 ==
LOC: ER 12:47 → ERHOLD 14:55 → ICU 15:55
PROVIDERS: ADMIT Internal Medicine; ATTEND Internal Medicine
PROC: 5A1955Z Respiratory Ventilation, Greater than 96 Consecutive Hours (ICD-10-PCS; principal; 2019-04-11)
PROC: 30233N1 Transfusion of Nonautologous Red Blood Cells into Peripheral Vein, Percutaneous Approach (ICD-10-PCS; 2019-04-11)
DX: J69.0 Pneumonitis due to inhalation of food and vomit (principal); J96.10 Chronic respiratory failure, unspecified whether with hypoxia or hypercapnia; J95.03 Malfunction of tracheostomy stoma; E44.0 Moderate protein-calorie malnutrition; G11.9 Hereditary ataxia, unspecified; I69.391 Dysphagia following cerebral infarction; R13.10 Dysphagia, unspecified; Z93.1 Gastrostomy status; R56.9 Unspecified convulsions; G40.909 Epilepsy, unspecified, not intractable, without status epilepticus; D64.9 Anemia, unspecified
CPT/HCPCS: 36415; 36600; 70450; 71045; 71250; 80048; 80053; 80202; 81001; 82270; 82550; 82553; 82607; 82728; 82746; 82805; 83540; 83605; 84466; 84484; 85025; 85045; 85610; 85730; 86850; 86900; 86920; 87040; 87070; 87071; 87086; 87186; 87205; 93005; 94002; 94003; 94640; 97139; 99284; J1644; J1756; J3370; J3411; J7030; J7040; J7050; P9016